=== PATIENT | female | born 1945 | race Caucasian/White ===

== ENCOUNTER → 2020-05-27 12:34 | Outpatient (CLI) | payer MEDICARE, BC, SELFPAY ==
--- NOTE | ~2020-05-27 | MM_ITS ---
EXAMINATION: MM screening lori BI w anette HISTORY: Screening mammogram, family history of breast cancer in her mother. TECHNIQUE: Craniocaudal and mediolateral oblique 3-D tomosynthesis images were obtained and synthetic 2-D images were generated. CAD analysis was submitted and interpreted. COMPARISON: 04/13/2019, 03/30/2019, 02/05/2018, 12/21/2016 BREAST PARENCHYMAL COMPOSITION: The breasts are almost entirely fatty. FINDINGS: There is no evidence of suspicious mass, calcification, or architectural distortion to sugg est malignancy in either breast. There has been no suspicious interval change. IMPRESSION: 1. No mammographic evidence of malignancy. 2. Recommend routine screening mammography in one year. BI-RADS Category 1: Negative Reviewed, dictated and finalized at location A. 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
== END ==
PROVIDERS: PCP Family Medicine Adolescent Medicine; Visit Provider Family Medicine Adolescent Medicine
DX: Z12.31 Encounter for screening mammogram for malignant neoplasm of breast (principal)
CPT/HCPCS: 77063; 77067

== ENCOUNTER → 2021-07-26 10:49 | Outpatient (CLI) | payer MEDICARE, BC, SELFPAY ==
--- NOTE | ~2021-07-26 | MM_ITS ---
EXAMINATION: MM screening lori BI w anette HISTORY: Screening TECHNIQUE: Craniocaudal and mediolateral oblique 3-D tomosynthesis images were obtained and synthetic 2-D images were generated. CAD analysis was submitted and interpreted. COMPARISON: Comparison to multiple prior studies sequentially, with oldest reviewed study dated 12/18. BREAST PARENCHYMAL COMPOSITION: There are scattered areas of fibroglandular density. FINDINGS: There is no evidence of suspicious mass, calcification, or architectural distortion to sugg est malignancy in either breast. There has been no suspicious interval change. IMPRESSION: 1. No mammographic evidence of malignancy. 2. Recommend routine screening mammography in one year. BI-RADS Category 1: Negative Reviewed, dictated and finalized at location A. 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
== END ==
PROVIDERS: PCP Family Medicine Adolescent Medicine; Visit Provider Family Medicine Adolescent Medicine
DX: Z12.31 Encounter for screening mammogram for malignant neoplasm of breast (principal)
CPT/HCPCS: 77063; 77067

== ENCOUNTER 2022-10-29 20:23 | Inpatient (IN) | payer MEDICARE, BC, SELFPAY ==
--- NOTE | ~2022-10-29 | CT_ITS ---
EXAMINATION: CT lumbar spine wo con DATE: 10/29/2022 22:04 INDICATION: fall . TECHNIQUE: Computed tomography (CT) of the lumbar spine was performed without intravenous contrast. A utomated exposure control and iterative reconstruction technique were employed. The dose-length produ ct was 1111.75 mGy-cm. COMPARISON: CT right lower extremity 03/09/2015. FINDINGS: Atherosclerotic vascular calcifications. Cholelithiasis. Bilateral adrenal adenomas. Right midpole cyst with a thin calcified septum. Diverticulosis. Heterogeneous cystic and solid mass in the left pelvis measuring at least 5.6 cm but incompletely included in the [id number]. Acetabular masha ent in the right acetabulum, not completely included in the [id number]. Right iliopsoas scarring. Right-sided stimulator pack, leads terminating in the deep left pelvis after passing through the left third sacral foramen. Decreased mineralization. 5 nonrib-bearing lumbar-type vertebral bodies. Pedicles intact. Normal vert ebral body alignment. Loss of the normal lordosis. Vertebral body heights preserved. Multilevel moder ate disc space narrowing and marginal osteophytosis with vacuum phenomenon at L1-2 through L4-5. Yamile re left neural foraminal narrowing at L4-5. Severe central canal narrowing at L3-4 and L4-5. Moderate multilevel facet sclerosis and hypertrophy. IMPRESSION: 1. No acute fracture or traumatic malalignment in the lumbar spine. 2. Severe central canal stenosis at L3-4 and L4-5. 3. Severe left foraminal narrowing at L4-5. 4. Severe multilevel lumbar degenerative disc disease. 5. Incompletely evaluated left pelvic mass, recommend pelvic ultrasound for further evaluation. Reviewed, dictated and finalized at location K. IMPRESSION: 1. No acute fracture or traumatic malalignment in the lumbar spine. 2. Severe central canal stenosis at L3-4 and L4-5. 3. Severe left foraminal narrowing at L4-5. 4. Severe multilevel lumbar degenerative disc disease. 5. Incompletely evaluated left pelvic mass, recommend pelvic ultrasound for fur ther evaluation.
--- NOTE | ~2022-10-29 | CT_ITS ---
EXAMINATION: CT brain wo con DATE: 10/29/2022 21:58 INDICATION: fall, thinners . TECHNIQUE: Computed tomography (CT) of the head was performed without intravenous contrast. The mA wa s adjusted according to patient size. Iterative reconstruction technique was employed. The dose-lengt h product was 605.33 mGy-cm. COMPARISON: None. FINDINGS: No acute intracranial hemorrhage or extra-axial fluid collection. No hydrocephalus, mass, or herniation. No acute ischemic infarct. Unremarkable dural venous sinus attenuation. No acute osseous abnormality. Trace left mastoid fluid, the remaining aerated spaces are clear. Mild atrophy and chronic white matter change. Atherosclerotic intracranial calcification. 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 Bilateral lens replacements . IMPRESSION: No acute intracranial process. Reviewed, dictated and finalized at location K.
--- NOTE | ~2022-10-29 | XR_ITS ---
EXAM: XR ankle RT min 3V DATE: 10/29/2022 21:52 HISTORY: fall . COMPARISON: None available. FINDINGS: Decreased mineralization. No acute fracture or dislocation. No lytic or blastic lesion. De generative change in the tibiotalar joint and the midfoot. Achilles and plantar enthesopathy. Ossific ation adjacent to the medial cortex of the distal tibia. Soft tissue swelling about the ankle. Vascul ar calcifications. IMPRESSION: No acute osseous finding in the right ankle. Periosteal/soft tissue ossification adjacent to the distal right tibia just proximal to the medial malleolus, likely chronic change and of doubtf ul clinical significance, unless accompanied by signs of infection. Reviewed, dictated and finalized at location K. IMPRESSION: No acute osseous finding in the right ankle. Periosteal/soft tissue ossification adjacent to the distal right tibia just proximal to the medial ma lleolus, likely chronic change and of doubtful clinical significance, unless ac companied by signs of infection.
--- NOTE | ~2022-10-29 | CT_ITS ---
EXAMINATION: CT abdomen pelvis w con DATE: 10/30/2022 02:39 INDICATION: Abdominal pain radiating to the back. TECHNIQUE: Computed tomography (CT) of the abdomen and pelvis was performed with 100 mL Omnipaque 350 intravenous contrast. Automated exposure control and iterative reconstruction technique were employe d. The dose-length product was 979.19 mGy-cm. COMPARISON: None. FINDINGS: The visualized portions of the lung bases demonstrate mild atelectasis. No pleural effusion . Cardiomegaly is noted. 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 There are coronary artery calcifications. No pericardial effusion. There are cysts i n the liver measuring up to 2.0 cm. There is a gallstone in the gallbladder, which is distended. Ther e is incomplete pancreas divisum. The spleen and right adrenal gland are normal. There is a 16 mm mas s in left adrenal gland measuring soft tissue attenuation, likely an adenoma in the absence of known malignancy. There is mild atrophy of the kidneys. There is a 3.5 cm cyst in right kidney. There is an umbilical hernia containing fat. There is a 6.0 x 3.7 cm multiloculated cystic mass in left adnexa. There is diverticulosis of the colon without evidence of diverticulitis. The appendix is normal. Ther e are no dilated loops of bowel. There is calcified atherosclerosis of the aorta and many of the othe r arteries. There are no pathologically enlarged lymph nodes. There is no free intraperitoneal fluid. There are bilateral total hip arthroplasties. There is an electrode in left S3 neural foramen. There is moderate lumbar spondylosis. IMPRESSION: 1. Cholelithiasis. Gallbladder distention may be secondary to fasting or acute cholecystitis. Correla te with physical exam. 2. 6.0 x 3.7 cm multiloculated cystic mass in the left adnexa, which may be a benign or malignant ova nurys mass. Pelvis ultrasound is recommended. Reviewed, dictated and finalized at location A. IMPRESSION: 1. Cholelithiasis. Gallbladder distention may be secondary to fasting or acute cholecystitis. Correlate with physical exam. 2. 6.0 x 3.7 cm multiloculated cystic mass in the left adnexa, which may be a b enign or malignant ovarian mass. Pelvis ultrasound is recommended.
--- NOTE | ~2022-10-29 | US_ITS ---
EXAMINATION: US pelvic complete DATE: 10/30/2022 17:29 INDICATION: Incompletely evaluated left pelvic mass, TECHNIQUE: Multiple transabdominal sonographic images of the pelvis were obtained. Patient declined t ransvaginal examination. COMPARISON: CT abdomen and pelvis 10/30/2022. FINDINGS: Uterus: Status post hysterectomy. Right Ovary: Not visualized. Left Ovary: 2.6 x 1.7 x 1.7 cm. Vascular flow is not obtained. There is no free fluid in the pelvis. IMPRESSION: Limited examination. The known left adnexal mass was not visualized. Right ovary not visualized. Flow not obtained in the left ovary although this may be secondary to technical factors. Reviewed, dictated and finalized at location K. IMPRESSION: Limited examination. The known left adnexal mass was not visualized. Right ovar y not visualized. Flow not obtained in the left ovary although this may be seco ndary to technical factors.
--- NOTE | ~2022-10-29 | XR_ITS ---
EXAM: XR hip BI 2V w AP pelvis DATE: 10/29/2022 21:52 HISTORY: fall . COMPARISON: 02/04/2013. FINDINGS: Right sided stimulator pack, leads terminating over the left sacrum. Bipolar right hip imp lant with proximal femoral cerclage wires and acetabular cement. Extrusion of cement within the pelvi c ring. Periarticular lucency along the right femoral stem at the bone/hardware and bone cement inter face. Heterotopic ossification projecting off the right greater trochanter. Uncomplicated appearing t otal hip arthroplasty, in good position. Vascular calcifications. Pelvic phleboliths. Lumbar degenera tive disc disease. IMPRESSION: No acute osseous finding in the pelvis or bilateral hips. Perihilar hardware lucency surr ounding the femoral component in the right revision arthroplasty may represent infection/loosening. R ecommend comparison to outside studies if available. Reviewed, dictated and finalized at location K. IMPRESSION: No acute osseous finding in the pelvis or bilateral hips. Perihilar hardware lucency surrounding the femoral component in the right revision arthr oplasty may represent infection/loosening. Recommend comparison to outside stud ies if available.
--- NOTE | ~2022-10-29 | XR_ITS ---
EXAM: XR_KNEE1-2VRT_CR, XR_KNEE1-2VLT_CR DATE: 10/29/2022 21:52 HISTORY: fall . COMPARISON: None available. FINDINGS: Decreased mineralization. Bilateral medial and lateral joint space narrowing, severe in th e lateral compartment of the left knee. Tricompartmental bilateral osteophytosis, severe in the patellofemoral compartment of the left knee. No fracture or dislocation. Small bilateral knee joint effusions. Atherosclerotic vascular calcificat ions. IMPRESSION: No acute osseous finding in the right or left knee. Reviewed, dictated and finalized at location K. IMPRESSION: No acute osseous finding in the right or left knee.
[2022-10-29 20:30] VITALS: RESP 16; O2SAT 95
[2022-10-29 20:35] VITALS: BP 121/59; PULSE 96; RESP 20; TEMP 37.6; O2SAT 96
[2022-10-29 20:46] VITALS: BP 144/123; PULSE 102; RESP 20; O2SAT 95
[2022-10-29 21:04] VITALS: PULSE 107
--- NOTE | 2022-10-29 21:18 | ED.FALL ---
HPI - Fall General Chief Complaint: Fall <Lang Dawson PA-C - Last Filed: 10/30/22 04:18> Stated Complaint: glf <Lang Dawson PA-C - Last Filed: 10/30/22 04:18> Time Seen by Provider: 10/29/22 20:42 <Lang Dawson PA-C - Last Filed: 10/30/22 04:18> Source: patient <Lang Dawson PA-C - Last Filed: 10/30/22 04:18> Mode of arrival: ambulatory <Lang Dawson PA-C - Last Filed: 10/30/22 04:18> Limitations: no limitations <Lang Dawson PA-C - Last Filed: 10/30/22 04:18> History of Present Illness HPI Narrative: This is a 76-year-old female with PMH of A-fib, CHF, CAD, type 2 diabetes, peripheral neuropathy who presents to the ED with chief complaint of a fall occurring this morning around 0830. She is here presenting with her daughter. Patient states that she had a ground-level fall in which she was trying to transition from her bed to her wheelchair. Reports neuropathy in her feet due to diabetes which is why she is in the wheelchair. She states that she stumbled while trying to turn around and fell down to the ground. Reports some left low back pain that is chronic but slightly worse after the fall. Denies any further site of pain, however unable to tell about lower extremity injuries due to the neuropathy. Denies LOC. Denies head injury. She is able to recall the entirety of the entirety of the events this morning. She does take warfarin. Denies fevers, chills, chest pain, shortness of breath, chest pain, lightheadedness, weakness. <Lang Dawson PA-C - Last Filed: 10/30/22 04:18> Related Data Home Medications: Home Medications Medication Instructions Recorded Confirmed aspirin 81 mg tablet,delayed 81 mg PO DAILY 09/27/21 10/30/22 release (Adult Low Dose Aspirin) vit C 250 mg-vit E 90 mg-zinc 40 1 tablet PO BID 09/27/21 10/30/22 mg-copper 1 fr-itbsxq-jqqdic capsule (PreserVision AREDS-2) warfarin 1 mg tablet 1 mg PO DAILY 09/27/21 10/03/22 duloxetine 30 mg capsule,delayed 60 mg PO BID 10/30/22 10/30/22 release furosemide 80 mg tablet 40 mg PO QAM 10/30/22 10/30/22 metformin 500 mg tablet,extended 500 mg PO BID 10/30/22 10/30/22 release 24 hr potassium chloride 20 mEq 20 meq PO DAILY 10/30/22 10/30/22 tablet,extended release <Lang Dawson PA-C - Last Filed: 10/30/22 04:18> Allergies/Adverse Reactions: Allergies Allergy/AdvReac Type Severity Reaction Status Date / Time prednisone Allergy Severe RASH Verified 10/29/22 21:49 <Lang Dawson PA-C - Last Filed: 10/30/22 04:18> Review of Systems Review of Systems: CONSTITUTIONAL: Denies fever, chills, or sweats. EYES: Denies visual changes, redness, or discharge. ENT: Denies rhinorrhea, congestion, sore throat, or otalgia. CARDIOVASCULAR: Denies chest pain, palpitations, or edema. RESPIRATORY: Denies cough or dyspnea. GASTROINTESTINAL: Denies abdominal pain, nausea, vomiting, or diarrhea. GENITOURINARY: Denies dysuria or hematuria. SKIN: Denies rash or itching. MUSCULOSKELETAL: See HPI NEUROLOGIC: See HPI PSYCHIATRIC: Denies anxiety or depression. <Lang Dawson PA-C - Last Filed: 10/30/22 04:18> [facility] Past Medical History Medical History: Medical History (Updated 10/30/22 @ 04:15 by Lang Dawson PA-C) Normal colonoscopy 2011 <Lang Dawson PA-C - Last Filed: 10/30/22 04:18> Surgical History Surgical History: Surgical History (Updated 09/26/21 @ 09:55 by Babak Kebede MD) History of hysterectomy History of tonsillectomy History of total bilateral knee replacement Right 2007, Left 2012 <Lang Dawson PA-C - Last Filed: 10/30/22 04:18> Family History Family History: Family History (Updated 09/26/21 @ 09:56 by Babak Kebede MD) Father Lung cancer Mother Emphysema of lung <Lang Dawson PA-C - Last Filed: 10/30/22 04:18> Social History Social History: Social History (Updated 09/27/21 @ 13:20 by Jose Magana
[2022-10-29 22:18] VITALS: PULSE 100; RESP 20; O2SAT 98
--- NOTE | 2022-10-29 23:10 | PC.NURSE ---
Report given to HOA Sanders.
--- NOTE | 2022-10-29 23:16 | PC.NURSE ---
Report given to HOA Sanders at this time.
[2022-10-29 23:46] LABS: Basophils Absolute Auto 0.1 K/mm3 (0.0-0.1); Basophils Percent Auto 0.5 % (0.2-1.2); Eosinophils Percent Auto 0.1 % (0-4.4); Hemoglobin 14.5 g/dL (12.0-15.0); Immature Granulocyte Absolute 0.14 K/mm3 (0.00-0.031); Immature Granulocyte Percent A 0.8 % (0-0.5); Lymphocytes Absolute Auto 1.34 K/mm3 (0.9-3.2); Lymphocytes Percent Auto 7.7 % (18.3-44.2); Mean Corpuscular HGB Conc 32.2 g/dl (32-36); Mean Corpuscular Hemoglobin 28.9 pg (26-34); Mean Corpuscular Volume 89.8 fl (80-100); Mean Platelet Volume 10.8 fl (7.4-10.4); Monocytes Absolute Auto 1.7 K/mm3 (0.1-0.6); Monocytes Percent Auto 9.8 % (2.6-8.5); Neutrophils Absolute Auto 14.1 K/mm3 (1.3-6.7); Neutrophils Percent Auto 81.1 % (45.5-73.1); Platelet Count Result 235 k/mm3 (150-375); Red Blood Count 5.01 M/mm3 (4.2-5.4); Red Cell Distribution Width 14.6 % (11.5-14.5); White Blood Count 17.4 K/mm3 (4.5-10.0)
[2022-10-29 23:58] LABS: INR 2.2; Prothrombin Time 23.4 Seconds (11.1-14.7)
[2022-10-29 23:59] LABS: Partial Thromboplastin Time 35.3 SECONDS (22.3-36.8)
[2022-10-30] VITALS (9 sets, daily range): BP systolic 102–168; BP diastolic 57–81; PULSE 88–107; RESP 15–20; TEMP 35.8–36.7; O2SAT 94–98; BMI 32.2; BMI 10.0
[2022-10-30 00:01] LABS: Alanine Aminotransferase 28 U/L (6-35); Albumin Level 4.6 g/dL (3.5-5.1); Alkaline Phosphatase 92 U/L (38-126); Anion Gap 11 mmol/L (8-16); Aspartate Amino Transferase 35 U/L (14-36); Blood Urea Nitrogen 26 mg/dL (7-17); Calcium 8.8 mg/dL (8.4-10.2); Carbon Dioxide 28 mmol/L (22-30); Chloride 92 mmol/L (98-107); Estimated CRCL calculation 36 ml/min; Estimated Glomerular Filt Rate 40; Glucose 139 mg/dL (65-110); Potassium 3.7 mmol/L (3.4-5.0); Sodium 131 mmol/L (137-145)
[2022-10-30 02:30] LABS: Appearance Urine Turbid (Clear); Bacteria Urine 2+ /hpf; Bilirubin Urine 2+ (Negative); Blood Urine 2+ (Negative); Color Urine Dark Yellow (Yellow); Glucose Urine UA Negative (Negative); Ketones Urine 1+ mg/dL (Negative); Leukocyte Esterase Ur 3+ LEU/UL (Negative); Need Manual Microscopic Reviewed; Nitrate Urine Negative (Negative); Protein Urine 3+ mg/dL (Negative); Specific Grav Ur 1.021 (1.001-1.035); Squamous Epithelial Cell Urine Occasional /hpf (Few); WBC Urine >100 /hpf; pH Urine 5.5 (5.0-9.0)
[2022-10-30 02:32] LABS: Add Urine Microscopic? YES
[2022-10-30] MEDS: SODIUM CHLORIDE 0.9% IV 1,000 ML 999 ML IV CONT (04:24)
--- NOTE | 2022-10-30 06:37 | PC.NURSE ---
warfarin dosing needs verified, all other medication verified with daughter Shay Day to bring in medication list
--- NOTE | 2022-10-30 06:37 | ADMGEN ---
This patient, Zeina Owen, was admitted to [facility] Room 306-01. Patient/family oriented to hospital policies and general routines including ID bracelet, bed and alarms, visiting hours, pain management, procedures, bathroom and other care routines, personal items, smoking policy, room service/diet, and visiting hours. Information on how to activate the Rapid Response Team has been discussed. Patient/Family are encouraged to report perceived risks to care and to ask questions if they do not understand what they are told or what they should do.
[2022-10-30] MEDS: DIGOXIN TAB 125 MCG TABLET PO (09:19)
[2022-10-30] MEDS: metFORMIN HCL XR 500 MG TAB.SR.24H PO ×2 (09:19→17:55)
[2022-10-30] MEDS: FUROSEMIDE 40 MG TABLET PO (09:19)
[2022-10-30] MEDS: ASPIRIN 81 MG ENTERIC TABLET PO (09:20)
[2022-10-30] MEDS: PRAVASTATIN SODIUM 20 MG TABLET 40 MG PO (09:20)
[2022-10-30] MEDS: DULoxetine HCL 60 MG CAPSULE.DR PO ×2 (09:20→17:55)
[2022-10-30] MEDS: FERROUS SULFATE 324 MG TABLET PO ×2 (09:20→17:55)
[2022-10-30] MEDS: OPTI-GEN TAB 1 TABLET PO ×2 (09:20→17:55)
[2022-10-30] MEDS: POTASSIUM CHLORIDE 20 MEQ TABLET.ER PO (09:20)
[2022-10-30 11:21] LABS: Glucose Point of Care 179 mg/dl (65-105)
[2022-10-30] MEDS: HYDROcodone/acetaminophen (*CRX) 5-325 MG TABLET 1 TAB PO (12:02)
--- NOTE | 2022-10-30 15:14 | PM.IMHP ---
H&P: HPI History of Present Illness Date/Time: 10/30/22 15:14 Chief Complaint: Fall Narrative: ED-HPI Narrative: ? ? ? This is a 76-year-old female with PMH of A-fib, CHF, CAD, type 2 diabetes, peripheral neuropathy who presents to the ED with chief complaint of a fall occurring this morning around 0830.? She is here presenting with her daughter.? Patient states that she had a ground-level fall in which she was trying to transition from her bed to her wheelchair.? Reports neuropathy in her feet due to diabetes which is why she is in the wheelchair.? She states that she stumbled while trying to turn around and fell down to the ground.? Reports some left low back pain that is chronic but slightly worse after the fall.? Denies any further site of pain, however unable to tell about lower extremity injuries due to the neuropathy.? Denies LOC.? Denies head injury.? She is able to recall the entirety of the entirety of the events this morning.? She does take warfarin.? Denies fevers, chills, chest pain, shortness of breath, chest pain, lightheadedness, weakness. Patient is 76-year-old female with history of dementia and currently confused unable to provide detailed review of symptoms or history patient daughter is present in the room states patient normally is able transfer herself from bed to wheelchair and apparently sees weak and her neuropathic pain may have aggravated and patient fell, patient urine is suspicious for UTI however with dementia unable to provide history of dysuria, we have started the patient ceftriaxone empiric will follow-up on urine, will have PT OT evaluate the patient, patient may benefit going to acute rehab. Patient is admitted as observation status Review of Systems Review of Systems: ROS unobtainable: Yes unobtainable due to mental status PMFSH Past Medical History Medical History (Updated 10/30/22 @ 15:31 by Paty Johnson MD) Normal colonoscopy 2011 Surgical History Surgical History (Updated 09/26/21 @ 09:55 by Babak Kebede MD) History of hysterectomy History of tonsillectomy History of total bilateral knee replacement Right 2007, Left 2012 Family History Family History (Updated 09/26/21 @ 09:56 by Babak Kebede MD) Father Lung cancer Mother Emphysema of lung Social History Social History (Updated 09/27/21 @ 13:20 by Jose Magana MA) Smoking status: Current every day smoker Tobacco type: cigarettes Alcohol intake: never Substance use: never Substance use type: does not use Lack of Transportation: No Lack of Food: Never True Current Housing: Decline to Answer Concerned About Future Housing: No Difficulty Paying Gas/Electric Bills: No Difficulty Paying for Meds: No Currently Unemployed: No Education: High School Diploma/GED Difficulty w/ Childcare or Family Care: No Living arrangements: alone Occupation/Education: retired Gender identity (if verbalized by the patient): Female Sexual Orientation (if Verbalized by the Patient): Straight or Heterosexual Spiritual care concerns: No Agree to blood products: Yes Meds Home Medications and Allergies Home Medications Medication Instructions Recorded Confirmed Type aspirin 81 mg tablet,delayed 81 mg PO DAILY 09/27/21 10/30/22 History release (Adult Low Dose Aspirin) vit C 250 mg-vit E 90 mg-zinc 40 1 tablet PO BID 09/27/21 10/30/22 History mg-copper 1 [id number]-izfmop-bsbgie capsule (PreserVision AREDS-2) warfarin 1 mg tablet 1 mg PO DAILY 09/27/21 10/03/22 History pravastatin 40 mg tablet 40 mg PO DAILY #90 tabs 12/20/21 10/30/22 Rx ferrous sulfate 325 mg (65 mg 325 mg PO BID #180 tabs 06/27/22 10/30/22 Rx iron) tablet (FeroSul) trazodone 50 mg tablet 50 mg PO QHS PRN sleep #90 tabs 06/27/22 10/30/22 Rx diltiazem HCl 240 mg 240 mg PO DAILY #90 caps 07/06/22 10/30/22 Rx capsule,extended release 24 hr digoxin 125 mcg (0.125 mg) tablet 125 mcg PO DAILY #90 tabs
[2022-10-30 16:55] LABS: Glucose Point of Care 149 mg/dl (65-105)
--- NOTE | 2022-10-30 17:06 | PM.CNOR ---
Assessment and Plan Assessment and plan (1) Status post total hip replacement, bilateral: Code(s): Z96.643 - Presence of artificial hip joint, bilateral Status: Acute (2) Severe sprain of right ankle: Code(s): S93.401A - Sprain of unspecified ligament of right ankle, initial encounter Status: Acute (3) Decreased ambulation status: Code(s): Z74.09 - Other reduced mobility Status: Acute Plan Status post right revision total hip arthroplasty for early post op infection over 10 years ago. She denies any problems in the hip since her revision surgery and no recent acute aggravation. There is radiographic evidence of possible chronic loosening at the cement mantle with lucent lines at the acetabulum and femoral components. This is a chronic finding, unlikely related to the recent fall. Chronic infection is possible, but unlikely given her lack of symptoms. She does complain of significant ankle pain secondary to a severe sprain. I recommend a soft compressive wrap, or brace for the ankle. I recommend she follow-up with her treating surgeon for monitoring of her hip arthroplasty. Thank you for the consultation. History of Present Illness HPI Consult date: 10/30/22 Chief complaint: UTI,Falls,Neuropathy Narrative: 76-year-old pleasant female with mild dementia complains of right ankle pain after a fall. She typically transfers only. Non ambulatory. She fell somewhat under wheelchair in complains of rolling the ankle. Complains of swelling. Denies hip or groin pain. Some back pain which is chronic and mildly worsened. History of bilateral total hip arthroplasty approximally 10 years ago, by Dr. Richards. The right hip was draining purulence in the early postoperative. She was treated with revision by revision specialist. She denies any other problems with the hip. Review of Systems Review of Systems: All systems reviewed & are unremarkable except as noted in HPI and below PMFSH Past Medical History Medical History (Updated 10/30/22 @ 17:15 by Melvin Rahman MD) Normal colonoscopy 2011 Surgical History Surgical History (Updated 10/30/22 @ 17:13 by Melvin Rahman MD) History of hysterectomy History of tonsillectomy Status post total hip replacement, bilateral right hip revision due to infection. Family History Family History Father Lung cancer Mother Emphysema of lung Social History Social History Smoking status: Current every day smoker Tobacco type: cigarettes Alcohol intake: never Substance use: never Substance use type: does not use Lack of Transportation: No Lack of Food: Never True Current Housing: Decline to Answer Concerned About Future Housing: No Difficulty Paying Gas/Electric Bills: No Difficulty Paying for Meds: No Currently Unemployed: No Education: High School Diploma/GED Difficulty w/ Childcare or Family Care: No Living arrangements: alone Occupation/Education: retired Gender identity (if verbalized by the patient): Female Sexual Orientation (if Verbalized by the Patient): Straight or Heterosexual Spiritual care concerns: No Agree to blood products: Yes Meds Home Medications and Allergies Home Medications Medication Instructions Recorded Confirmed Type aspirin 81 mg tablet,delayed 81 mg PO DAILY 09/27/21 10/30/22 History release (Adult Low Dose Aspirin) vit C 250 mg-vit E 90 mg-zinc 40 1 tablet PO BID 09/27/21 10/30/22 History mg-copper 1 pc-netyyq-ferrlp capsule (PreserVision AREDS-2) warfarin 1 mg tablet 1 mg PO DAILY 09/27/21 10/03/22 History pravastatin 40 mg tablet 40 mg PO DAILY #90 tabs 12/20/21 10/30/22 Rx ferrous sulfate 325 mg (65 mg 325 mg PO BID #180 tabs 06/27/22 10/30/22 Rx iron) tablet (FeroSul) trazodone 50 mg tablet 50 mg PO QHS PRN sleep #90 tabs
[2022-10-30] MEDS: WARFARIN (*PBKC) 3 MG TABLET PO (18:32)
[2022-10-30 22:08] LABS: Glucose Point of Care 179 mg/dl (65-105)
[2022-10-31 06:00] VITALS: BP 146/77; PULSE 100; RESP 16; TEMP 36.6; O2SAT 94
[2022-10-31 06:08] LABS: Hematocrit 39.4 % (37.0-47.0); Hemoglobin 12.6 g/dL (12.0-15.0); Mean Corpuscular Hemoglobin 28.8 pg (26-34); Mean Corpuscular Volume 90.2 fl (80-100); Mean Platelet Volume 10.7 fl (7.4-10.4); Platelet Count Result 177 k/mm3 (150-375); Red Blood Count 4.37 M/mm3 (4.2-5.4); Red Cell Distribution Width 14.5 % (11.5-14.5); White Blood Count 12.5 K/mm3 (4.5-10.0)
[2022-10-31 06:17] LABS: INR 2.2; Prothrombin Time 23.7 Seconds (11.1-14.7)
[2022-10-31 06:21] LABS: Anion Gap 6 mmol/L (8-16); Blood Urea Nitrogen 25 mg/dL (7-17); Calcium 8.8 mg/dL (8.4-10.2); Carbon Dioxide 29 mmol/L (22-30); Chloride 99 mmol/L (98-107); Estimated CRCL calculation 46 ml/min; Estimated Glomerular Filt Rate 54; Glucose 138 mg/dL (65-110); Magnesium 1.6 mg/dL (1.6-2.3); Potassium 3.6 mmol/L (3.4-5.0); Sodium 134 mmol/L (137-145)
[2022-10-31 07:51] LABS: Glucose Point of Care 158 mg/dl (65-105)
[2022-10-31 09:08] VITALS: PULSE 60
[2022-10-31] MEDS: OPTI-GEN TAB 1 TABLET PO ×2 (09:08→17:09)
[2022-10-31] MEDS: DULoxetine HCL 60 MG CAPSULE.DR PO ×2 (09:08→17:08)
[2022-10-31] MEDS: PRAVASTATIN SODIUM 20 MG TABLET 40 MG PO (09:08)
[2022-10-31] MEDS: FUROSEMIDE 40 MG TABLET PO (09:08)
[2022-10-31] MEDS: POTASSIUM CHLORIDE 20 MEQ TABLET.ER PO (09:08)
[2022-10-31] MEDS: metFORMIN HCL XR 500 MG TAB.SR.24H PO ×2 (09:08→17:09)
[2022-10-31] MEDS: ASPIRIN 81 MG ENTERIC TABLET PO (09:08)
[2022-10-31] MEDS: DIGOXIN TAB 125 MCG TABLET PO (09:08)
[2022-10-31] MEDS: FERROUS SULFATE 324 MG TABLET PO ×2 (09:08→17:09)
[2022-10-31 12:24] LABS: Glucose Point of Care 159 mg/dl (65-105)
[2022-10-31] MEDS: POTASSIUM CHLORIDE 20 MEQ TABLET 40 MEQ PO (12:53)
[2022-10-31 14:00] VITALS: BP 132/57; PULSE 82; RESP 20; TEMP 36; O2SAT 94
--- NOTE | 2022-10-31 14:24 | WPDPN ---
Progress Note: A&P Assessment and Plan (1) Fall: Code(s): W19.XXXA - Unspecified fall, initial encounter Status: Acute Assessment and Plan: ED-HPI Narrative: ? ? ? This is a 76-year-old female with PMH of A-fib, CHF, CAD, type 2 diabetes, peripheral neuropathy who presents to the ED with chief complaint of a fall occurring this morning around 0830.? She is here presenting with her daughter.? Patient states that she had a ground-level fall in which she was trying to transition from her bed to her wheelchair.? Reports neuropathy in her feet due to diabetes which is why she is in the wheelchair.? She states that she stumbled while trying to turn around and fell down to the ground.? Reports some left low back pain that is chronic but slightly worse after the fall.? Denies any further site of pain, however unable to tell about lower extremity injuries due to the neuropathy.? Denies LOC.? Denies head injury.? She is able to recall the entirety of the entirety of the events this morning.? She does take warfarin.? Denies fevers, chills, chest pain, shortness of breath, chest pain, lightheadedness, weakness. 10/31/2022 interval history: Patient is 76-year-old female with history of dementia and currently confused unable to provide detailed review of symptoms or history patient daughter is present in the room states patient normally is able transfer herself from bed to wheelchair and apparently she too weak and her neuropathic pain may have aggravated and patient fell, patient urine is suspicious for UTI however with dementia unable to provide history of dysuria, we have started the patient ceftriaxone empiric will follow-up on urine, upon arrival patient had CT scan of the hip, suspicious for for infection patient was seen by orthopedic surgeon and suggest most likely chronic and patient need to follow up with his orthopedic surgeon, patient also found to have pelvic mass and I discussed with the patient daughter patient to follow-up with her athletics director, and patient need to will have PT OT evaluate the patient, patient may benefit going to acute rehab. (2) Acute UTI: Code(s): N39.0 - Urinary tract infection, site not specified Status: Acute Assessment and Plan: Patient urine is suspicious for UTI patient is simply Massimo lis started on ceftriaxone will follow-up on the culture and further recommendation to follow (3) Peripheral neuropathy: Code(s): G62.9 - Polyneuropathy, unspecified Status: Acute Assessment and Plan: Patient with chronic peripheral neuropathy patient will benefit and physical therapy in acute rehab (4) Hypertensive heart disease with heart failure: Code(s): I11.0 - Hypertensive heart disease with heart failure Status: Acute (5) Occlusion and stenosis of bilateral carotid arteries: Code(s): I65.23 - Occlusion and stenosis of bilateral carotid arteries Status: Acute Assessment and Plan: patient is being treated with warfarin (6) Pelvic mass in female: Code(s): R19.00 - Intra-abdominal and pelvic swelling, mass and lump, unspecified site Status: Acute Assessment and Plan: incidental finding, will do pelvic US and furthre recommnedation to follow. (7) Hip pain with osteonecrosis: Code(s): M87.9 - Osteonecrosis, unspecified Status: Acute Assessment and Plan: abnormal hip joint,will consult orthopedic for further recommendations. Subjective Date/time seen: 10/31/22 14:24 ED-HPI Narrative: ? ? ? This is a 76-year-old female with PMH of A-fib, CHF, CAD, type 2 diabetes, peripheral neuropathy who presents to the ED with chief complaint of a fall occurring this morning around 0830.? She is here presenting with her daughter.? Patient states that she had a ground-level fall in which she was trying to transition from her bed to her wheelchair.? Reports neuropathy in her feet due to diabetes which is why she is in the [facility]
[2022-10-31 16:55] LABS: Glucose Point of Care 177 mg/dl (65-105)
[2022-10-31] MEDS: WARFARIN (*PBKC) 3 MG TABLET PO (17:09)
[2022-10-31 20:00] VITALS: PULSE 96; RESP 18; O2SAT 93
[2022-10-31 22:00] VITALS: BP 132/80; PULSE 96; RESP 18; TEMP 36; O2SAT 93
[2022-10-31 22:57] LABS: Glucose Point of Care 177 mg/dl (65-105)
[2022-11-01 06:00] VITALS: BP 175/68; PULSE 91; RESP 18; TEMP 36; O2SAT 91
[2022-11-01 06:36] LABS: Hematocrit 39.4 % (37.0-47.0); Hemoglobin 12.3 g/dL (12.0-15.0); Mean Corpuscular HGB Conc 31.2 g/dl (32-36); Mean Corpuscular Hemoglobin 28.4 pg (26-34); Mean Platelet Volume 11.2 fl (7.4-10.4); Platelet Count Result 176 k/mm3 (150-375); Red Blood Count 4.33 M/mm3 (4.2-5.4); Red Cell Distribution Width 14.4 % (11.5-14.5); White Blood Count 10.7 K/mm3 (4.5-10.0)
[2022-11-01 06:42] LABS: Prothrombin Time 21.6 Seconds (11.1-14.7)
[2022-11-01 06:54] LABS: Anion Gap 7 mmol/L (8-16); Blood Urea Nitrogen 20 mg/dL (7-17); Calcium 8.6 mg/dL (8.4-10.2); Carbon Dioxide 28 mmol/L (22-30); Chloride 100 mmol/L (98-107); Estimated CRCL calculation 51 ml/min; Estimated Glomerular Filt Rate > 60; Glucose 133 mg/dL (65-110); Magnesium 1.7 mg/dL (1.6-2.3); Potassium 3.6 mmol/L (3.4-5.0); Sodium 135 mmol/L (137-145)
[2022-11-01 07:39] LABS: Glucose Point of Care 138 mg/dl (65-105)
[2022-11-01] MEDS: POTASSIUM CHLORIDE 20 MEQ TABLET.ER PO (08:22)
[2022-11-01] MEDS: DULoxetine HCL 60 MG CAPSULE.DR PO (08:22)
[2022-11-01] MEDS: ASPIRIN 81 MG ENTERIC TABLET PO (08:22)
[2022-11-01] MEDS: FUROSEMIDE 40 MG TABLET PO (08:22)
[2022-11-01] MEDS: OPTI-GEN TAB 1 TABLET PO (08:22)
[2022-11-01 08:23] VITALS: PULSE 91
[2022-11-01] MEDS: FERROUS SULFATE 324 MG TABLET PO (08:23)
[2022-11-01] MEDS: DIGOXIN TAB 125 MCG TABLET PO (08:23)
[2022-11-01] MEDS: MAGNESIUM OXIDE 400 MG TABLET PO (08:24)
[2022-11-01] MEDS: PRAVASTATIN SODIUM 20 MG TABLET 40 MG PO (08:24)
[2022-11-01] MEDS: metFORMIN HCL XR 500 MG TAB.SR.24H PO (08:24)
--- NOTE | 2022-11-01 10:19 | PM.DS ---
DS: Admitting Diagnosis Discharge Date 11/01/2022 Admitting Diagnosis Fall DS: Discharge Diagnosis Discharge Diagnosis (1) Fall: Code(s): W19.XXXA - Unspecified fall, initial encounter Status: Acute Assessment and Plan: ED-[facility] Narrative: ? ? ? This is a 76-year-old female with PMH of A-fib, CHF, CAD, type 2 diabetes, peripheral neuropathy who presents to the ED with chief complaint of a fall occurring this morning around 0830.? She is here presenting with her daughter.? Patient states that she had a ground-level fall in which she was trying to transition from her bed to her wheelchair.? Reports neuropathy in her feet due to diabetes which is why she is in the wheelchair.? She states that she stumbled while trying to turn around and fell down to the ground.? Reports some left low back pain that is chronic but slightly worse after the fall.? Denies any further site of pain, however unable to tell about lower extremity injuries due to the neuropathy.? Denies LOC.? Denies head injury.? She is able to recall the entirety of the entirety of the events this morning.? She does take warfarin.? Denies fevers, chills, chest pain, shortness of breath, chest pain, lightheadedness, weakness. 10/31/2022 interval history: Patient is 76-year-old female with history of dementia and currently confused unable to provide detailed review of symptoms or history patient daughter is present in the room states patient normally is able transfer herself from bed to wheelchair and apparently she too weak and her neuropathic pain may have aggravated and patient fell, patient urine is suspicious for UTI however with dementia unable to provide history of dysuria, we have started the patient ceftriaxone empiric will follow-up on urine, upon arrival patient had CT scan of the hip, suspicious for for infection patient was seen by orthopedic surgeon and suggest most likely chronic and patient need to follow up with his orthopedic surgeon, patient also found to have pelvic mass and I discussed with the patient daughter patient to follow-up with her balance recesser, and patient need to will have PT OT evaluate the patient, patient may benefit going to acute rehab. (2) Acute UTI: Code(s): N39.0 - Urinary tract infection, site not specified Status: Acute Assessment and Plan: Patient urine is suspicious for UTI patient is simply Massimo lis started on ceftriaxone will follow-up on the culture and further recommendation to follow (3) Peripheral neuropathy: Code(s): G62.9 - Polyneuropathy, unspecified Status: Acute Assessment and Plan: Patient with chronic peripheral neuropathy patient will benefit and physical therapy in acute rehab (4) Hypertensive heart disease with heart failure: Code(s): I11.0 - Hypertensive heart disease with heart failure Status: Acute (5) Occlusion and stenosis of bilateral carotid arteries: Code(s): I65.23 - Occlusion and stenosis of bilateral carotid arteries Status: Acute Assessment and Plan: patient is being treated with warfarin (6) Pelvic mass in female: Code(s): R19.00 - Intra-abdominal and pelvic swelling, mass and lump, unspecified site Status: Acute Assessment and Plan: incidental finding, will do pelvic US and furthre recommnedation to follow. (7) Hip pain with osteonecrosis: Code(s): M87.9 - Osteonecrosis, unspecified Status: Acute Assessment and Plan: abnormal hip joint,will consult orthopedic for further recommendations. DS: Summary Hospital Course Reason for hospitalization: ED-HPI Narrative: ? ? ? This is a 76-year-old female with PMH of A-fib, CHF, CAD, type 2 diabetes, peripheral neuropathy who presents to the ED with chief complaint of a fall occurring this morning around 0830.? She is here presenting with her daughter.? Patient states that she had a ground-level fall in which she was trying to transition from her bed to
[2022-11-01 11:56] LABS: Glucose Point of Care 186 mg/dl (65-105)
== END 2022-11-01 14:20 | DRG 690 ==
LOC: ANHED 10-30 04:24 → ANH3MEDSUR 10-30 05:24
PROVIDERS: Admitting Provider Internal Medicine; Emergency Provider Physician Assistant; PCP Family Medicine Adolescent Medicine; Visit Provider Family Medicine
DX: N39.0 Urinary tract infection, site not specified (principal); M87.9 Osteonecrosis, unspecified; S93.401A Sprain of unspecified ligament of right ankle, initial encounter; W19.XXXA Unspecified fall, initial encounter; E11.40 Type 2 diabetes mellitus with diabetic neuropathy, unspecified; F17.210 Nicotine dependence, cigarettes, uncomplicated; G89.29 Other chronic pain; I48.91 Unspecified atrial fibrillation; I11.0 Hypertensive heart disease with heart failure; I50.9 Heart failure, unspecified; I65.23 Occlusion and stenosis of bilateral carotid arteries; I25.10 Atherosclerotic heart disease of native coronary artery without angina pectoris; M54.9 Dorsalgia, unspecified; R19.00 Intra-abdominal and pelvic swelling, mass and lump, unspecified site; Z79.01 Long term (current) use of anticoagulants; F03.90 Unspecified dementia, unspecified severity, without behavioral disturbance, psychotic disturbance, mood disturbance, and anxiety; Z79.82 Long term (current) use of aspirin; Z90.710 Acquired absence of both cervix and uterus; Z96.653 Presence of artificial knee joint, bilateral; Z79.84 Long term (current) use of oral hypoglycemic drugs
CPT/HCPCS: 36415; 70450; 72131; 73521; 73560; 73610; 74177; 76856; 80048; 80053; 81001; 82948; 83735; 85025; 85027; 85610; 85730; 87086; 96365; 97162; 97165; 97530; 97535; 99285; A9270; J0696; J7030; Q9967

== ENCOUNTER 2022-12-20 16:51 | Outpatient (NON) | payer MEDICARE, BC, SELFPAY ==
[2022-12-20 17:24] LABS: Hematocrit 40.2 % (37.0-47.0); Hemoglobin 12.2 g/dL (12.0-15.0); Mean Corpuscular HGB Conc 30.3 g/dl (32-36); Mean Corpuscular Hemoglobin 29.2 pg (26-34); Mean Corpuscular Volume 96.2 fl (80-100); Platelet Count Result 252 k/mm3 (150-375); Red Blood Count 4.18 M/mm3 (4.2-5.4); Red Cell Distribution Width 16.4 % (11.5-14.5); White Blood Count 7.8 K/mm3 (4.5-10.0)
[2022-12-21 02:35] LABS: Hemoglobin A1C 5.8 % (<5.7)
== END 2022-12-20 16:52 | disposition home or self-care (01) ==
LOC: HOME HLTH 17:02
PROVIDERS: PCP Family Medicine Adolescent Medicine; Visit Provider Family Medicine Adolescent Medicine
DX: E11.42 Type 2 diabetes mellitus with diabetic polyneuropathy (principal); R53.1 Weakness
CPT/HCPCS: 83036; 85027

== ENCOUNTER 2023-01-19 13:06 | Inpatient (IN) | payer MEDICARE, BC, SELFPAY ==
[2023-01-19] VITALS (17 sets, daily range): BP systolic 105–154; BP diastolic 51–128; PULSE 69–85; RESP 18–22; TEMP 36.6; O2SAT 88–94; BMI 35.7
--- NOTE | ~2023-01-19 | US_ITS ---
EXAMINATION: US venous doppler [facility] DATE: 01/23/2023 11:33 INDICATION: Lower limb swelling. TECHNIQUE: Grayscale ultrasound images without and with compression and Doppler ultrasound images of the bilateral lower extremity veins were obtained. COMPARISON: Ultrasound 12/18/2013 FINDINGS: The visualized portions of right common femoral vein, profunda (deep) femoral vein, femoral vein, pop liteal vein, peroneal veins, posterior tibial veins, and greater saphenous vein outflow are patent. The visualized portions of left common femoral vein, profunda femoral vein, femoral vein, popliteal v ein, peroneal veins, posterior tibial veins, and greater saphenous vein outflow are patent. There is a small left-sided Brice's cyst. IMPRESSION: 1. No deep venous thrombosis. 2. Small left-sided Brice's cyst. Reviewed, dictated and finalized at location A.
--- NOTE | ~2023-01-19 | XR_ITS ---
XR hip RT 2V w AP pelvis DATE: 01/20/2023 11:58 INDICATION: Right thigh hematoma TECHNIQUE: AP pelvis. AP and lateral views of right hip COMPARISON: None FINDINGS: Diffuse osteopenia. Multilevel degenerative disc disease of lumbar spine. The pubic symphysis and sacral iliac joints are intact. No pelvic fracture or bone destruction is lauryn dent. Bilateral hip replacements. Generator device is noted on the right, with sacral neurotransmitter lead. IMPRESSION: Osteopenia Bilateral hip replacement Multilevel degenerative disc disease of the lumbar spine No recent right hip fracture or dislocation is detected Reviewed, dictated and finalized at location A.
--- NOTE | ~2023-01-19 | XR_ITS ---
EXAMINATION: XR femur RT min 2V DATE: 01/21/2023 09:47 INDICATION: Right thigh hematoma. TECHNIQUE: 2 views of right femur on 4 radiographs were obtained. COMPARISON: Pelvis and hip radiographs 10/29/2022, 03/01/2015 FINDINGS: There is a total right hip arthroplasty in near-anatomic alignment. Again seen are lucencie s around the distal femoral component and acetabular cup, consistent with loosening. Acetabular protr usio is noted. There is moderate right knee osteoarthritis. No knee joint effusion. IMPRESSION: 1. Total right hip arthroplasty with chronic lucencies around the acetabular cup and distal femoral c omponent, consistent with loosening. 2. Moderate right hip osteoarthritis. Reviewed, dictated and finalized at location A. IMPRESSION: 1. Total right hip arthroplasty with chronic lucencies around the acetabular cu p and distal femoral component, consistent with loosening. 2. Moderate right hip osteoarthritis.
--- NOTE | ~2023-01-19 | XR_ITS ---
XR knee RT 3V DATE: 01/20/2023 11:59 INDICATION: Anterolateral minor bruising of the right knee TECHNIQUE: 3 views including crosstable lateral COMPARISON: None FINDINGS: Diffuse osteopenia. Superior pole patellar enthesopathy at the quadriceps tendon insertion. There is tricompartment osteo arthritis, mild at the medial compartment, mild to moderate at the lateral and patellofemoral compart ments. No fracture or dislocation, periosteal reaction or bone destruction, radiopaque intra-articular loose body or chondrocalcinosis of the right knee is evident. The stem of an intramedullary fixation devices noted in the femoral shaft. Prominent calcification of the femoral, popliteal and particularly trifurcation arteries. IMPRESSION: Osteopenia Tricompartment osteoarthritis No fracture or dislocation of the knee or knee joint effusion Reviewed, dictated and finalized at location A.
--- NOTE | ~2023-01-19 | XR_ITS ---
EXAMINATION: XR chest 1V portable Exam Date/Time: 01/22/2023 14:30 CDT HISTORY: AMS Comparison: 07/04/2017. RESULT: Lines, tubes, and devices: None. Lungs and pleura: Emphysematous and senescent changes. Diffuse reticulonodular opacities, not signif icantly changed, given interval differences in technique. Cardiomediastinal silhouette: Stable. Other: No acute osseous or upper abdominal finding. IMPRESSION: Pulmonary opacities may represent chronic bronchiolitis, as can be seen with atypical infection, asth ma, aspiration, and small airways disease. Reviewed, dictated and finalized at location K. IMPRESSION: Pulmonary opacities may represent chronic bronchiolitis, as can be seen with at ypical infection, asthma, aspiration, and small airways disease.
--- NOTE | ~2023-01-19 | XR_ITS ---
XR humerus RT DATE: 01/20/2023 11:58 INDICATION: Chronic shoulder pain. No injury. TECHNIQUE: AP and lateral views COMPARISON: None FINDINGS: Severe chronic right rotator cuff atrophy with the humeral head abutting including chronic impressions upon the undersurface of the lateral aspect of the clavicle and the acromion process of t he scapula. There is severe osteoarthritic change at the right glenohumeral joint. No fracture, dislocation, periosteal reaction or bone destruction of the right humerus is evident. IV is noted at the antecubital fossa. IMPRESSION: Osteopenia Severe chronic right rotator cuff atrophy Severe osteoarthritic change at the right glenohumeral joint Reviewed, dictated and finalized at location A.
--- NOTE | ~2023-01-19 | CT_ITS ---
EXAMINATION: CT brain wo con DATE: 01/20/2023 11:43 INDICATION: Stroke. TECHNIQUE: Computed tomography (CT) of the head was performed without intravenous contrast. The mA wa s adjusted according to patient size. Iterative reconstruction technique was employed. The dose-lengt h product was 605.33 mGy-cm. COMPARISON: Head CT 10/29/2022 FINDINGS: There are scattered areas of low attenuation in the cerebral white matter. There is an old lacunar infarct in the left basal ganglia. There is no intracranial hemorrhage, acute infarction, or abnormal intracranial mass lesion. The ventricles are normal in size. There are likely changes of ocu lar lens replacement surgeries. The paranasal sinuses are clear. The mastoid air cells are normal. IMPRESSION: 1. Old lacunar infarct in the left basal ganglia. 2. Stable mild nonspecific cerebral white matter disease, which likely represents chronic small vesse l ischemic disease. Reviewed, dictated and finalized at location E. IMPRESSION: 1. Old lacunar infarct in the left basal ganglia. 2. Stable mild nonspecific cerebral white matter disease, which likely represen ts chronic small vessel ischemic disease.
[2023-01-19] MEDS: HYDROcodone/acetaminophen (*CRX) 5-325 MG TABLET 1 TAB PO (13:45)
[2023-01-19 13:56] LABS: Basophils Absolute Auto 0.1 K/mm3 (0.0-0.1); Basophils Percent Auto 0.9 % (0.2-1.2); Eosinophils Absolute Auto 0.1 K/mm3 (0-0.3); Eosinophils Percent Auto 0.6 % (0-4.4); Hematocrit 30.5 % (37.0-47.0); Hemoglobin 9.1 g/dL (12.0-15.0); Immature Granulocyte Absolute 0.07 K/mm3 (0.00-0.031); Immature Granulocyte Percent A 0.7 % (0-0.5); Lymphocytes Percent Auto 6.9 % (18.3-44.2); Mean Corpuscular HGB Conc 29.8 g/dl (32-36); Mean Corpuscular Hemoglobin 29.2 pg (26-34); Mean Corpuscular Volume 97.8 fl (80-100); Mean Platelet Volume 10.3 fl (7.4-10.4); Monocytes Absolute Auto 0.9 K/mm3 (0.1-0.6); Monocytes Percent Auto 8.5 % (2.6-8.5); Neutrophils Absolute Auto 8.4 K/mm3 (1.3-6.7); Neutrophils Percent Auto 82.4 % (45.5-73.1); Platelet Count Result 246 k/mm3 (150-375); Red Blood Count 3.12 M/mm3 (4.2-5.4); Red Cell Distribution Width 17.1 % (11.5-14.5); White Blood Count 10.2 K/mm3 (4.5-10.0)
[2023-01-19 14:08] LABS: INR 3.4; Prothrombin Time 37.1 Seconds (11.1-14.7)
[2023-01-19 14:09] LABS: Partial Thromboplastin Time 55.1 SECONDS (22.3-36.8)
[2023-01-19 14:13] LABS: Hypochromasia 1+ (NORMAL); Platelet Estimate Adequate (Adequate); Schistocytes None Seen (NORMAL)
[2023-01-19 14:19] LABS: Alanine Aminotransferase 15 U/L (6-35); Albumin Level 4.1 g/dL (3.5-5.1); Alkaline Phosphatase 96 U/L (38-126); Anion Gap 8 mmol/L (8-16); Aspartate Amino Transferase 18 U/L (14-36); Bilirubin,Total 0.6 mg/dL (0.2-1.3); Blood Urea Nitrogen 15 mg/dL (7-17); Calcium 8.5 mg/dL (8.4-10.2); Carbon Dioxide 30 mmol/L (22-30); Chloride 101 mmol/L (98-107); Estimated CRCL calculation 59 ml/min; Estimated Glomerular Filt Rate > 60; Glucose 123 mg/dL (65-110); Potassium 4.2 mmol/L (3.4-5.0); Sodium 139 mmol/L (137-145)
--- NOTE | 2023-01-19 15:00 | ED.LOWEXIN ---
HPI - Extremity Injury (Lower) General Chief Complaint: Extremity Injury, Lower Stated Complaint: leg pain Time Seen by Provider: 01/19/23 13:08 History of Present Illness HPI Narrative: Patient is a 77-year-old female who presents ER with leg weakness/buckling. She reports that she was at [facility] felt unsure about standing up to use restroom. She is being assisted by family when her knees buckled. She did not fall or strike her head. She has pain in her right thigh that has been ongoing over the last week. Associated with a lump and a bruise to the area. She denies any known trauma. She reports she has not been ambulatory since 2011 when she had MRSA sepsis and developed debility. She reports she was also recently hospitalized here 2 months ago. At that time she had a UTI. She then went to a rehab center. She feels like she has become more weak since her UTI infection and rehab stent. Patient uses a wheelchair and only assist in transferring. Patient chronically anticoagulated on treatment) unsure of last INR. No dark black stools. Related Data Home Medications Medication Instructions Recorded Confirmed aspirin 81 mg tablet,delayed 81 mg PO DAILY 09/27/21 01/19/23 release (Adult Low Dose Aspirin) metoprolol succinate 50 mg 50 mg PO QAM 01/02/23 01/19/23 tablet,extended release 24 hr warfarin 1 mg tablet 5 mg PO DAILY 01/02/23 01/19/23 digoxin 125 mcg (0.125 mg) tablet 125 mcg PO QAM 01/19/23 01/19/23 duloxetine 60 mg capsule,delayed 60 mg PO QAM 01/19/23 01/19/23 release (Cymbalta) pravastatin 40 mg tablet 40 mg PO QAM 01/19/23 01/19/23 vitamins A,C,Z-xrqg-whyval 2,148 2 tablet PO QAM 01/19/23 01/19/23 mcg-113 mg-45 mg-17.4 mg tablet Allergies Allergy/AdvReac Type Severity Reaction Status Date / Time prednisone Allergy Severe RASH Verified 01/19/23 13:12 Review of Systems Review of Systems: All systems reviewed & are unremarkable except as noted in HPI and below Constitutional: Constitutional: Denies chills, Reports fatigue and Denies fever(s) Cardiovascular: Cardiovascular: Denies chest pain, Denies rapid heart rate and Denies radiating jaw, neck or arm pain Musculoskeletal: Musculoskeletal: Denies arthralgias and Denies joint swelling Comments: Thigh pain right side Neurologic: Denies focal weakness and Denies numbness Hematologic/Lymphatic: Hematologic/Lymphatic: Denies easy bleeding and Reports easy bruising [facility] Past Medical History Medical History (Updated 01/19/23 @ 19:24 by Loco Gamboa MD) Atherosclerotic heart disease of [place] coronary artery without angina pectoris Chronic atrial fibrillation, unspecified Chronic obstructive pulmonary disease, unspecified Chronic systolic (congestive) heart failure Generalized anxiety disorder Hypertension Hypertensive heart disease with heart failure Major depressive disorder, recurrent, mild Normal colonoscopy 2011 Occlusion and stenosis of bilateral carotid arteries Pure hypercholesterolemia, unspecified Surgical History Surgical History History of hysterectomy History of tonsillectomy Status post total hip replacement, bilateral right hip revision due to infection. Family History Family History Father Lung cancer Mother Emphysema of lung Social History Social History Smoking packs per day: 1 Smoking cigarettes per day: 20.0 Years smoked: 64 Smoking pack-years: 64.00 Smoking status: Current every day smoker Tobacco type: cigarettes Alcohol intake: never Substance use: never Substance use type: does not use Lack of Transportation: No Lack of Food: Never True Current Housing: Decline to Answer Concerned About Future Housing: No Difficulty Paying Gas/Electric Bills: No Difficulty Paying for Meds: No Currently Une
[2023-01-19] MEDS: PANTOPRAZOLE SODIUM IV 40 MG VIAL IV PUSH (16:22)
[2023-01-19 17:05] LABS: Hematocrit 28.6 % (37.0-47.0); Hemoglobin 8.5 g/dL (12.0-15.0)
--- NOTE | 2023-01-19 17:06 | PM.IMHP ---
H&P: HPI History of Present Illness Date/Time: 01/19/23 16:30 Chief Complaint: Fall. Narrative: This is a very pleasant 77-year-old female smoker with chronic atrial fibrillation on long-term anticoagulation, congestive heart failure, hypertension, peripheral arterial disease, chronic obstructive pulmonary disease, type 2 diabetes mellitus with peripheral neuropathy, and other comorbidities who presented to the emergency department via EMS from home for evaluation after a fall. The patient provides the following history. She lives in her own home and her daughter and son-in-law do come over and help her out frequently. She is in a wheelchair and has been able to stand and pivot to transfer to the toilet and to bed up until recently. She has become increasingly weak and feels unsteady when up so she tries to wait until her family comes over to use the restroom. Not long prior to arrival her son-in-law was assisting her to the toilet when ?my knees buckled? and she slid to the ground onto her buttocks. There was no head trauma or loss of consciousness. Family members called 911 and on arrival to ED her vital signs were stable. On labs today she was found to have a hemoglobin of 9.1 which is 3 g lower than what she was last month. Her INR was 3.4. On exam she was noted to have a bruise and hematoma on the right lateral thigh which she states has been present for approximately 1 week though she does not recall how it happened; she denies fall and injury. Her stool was Hemoccult positive on exam. She is being admitted in this setting for further workup. At the time my evaluation she has no current complaints aside from the fact that she does not want to stay in the hospital and wishes to go home. She denies fever, chills, sweats, cold and flu symptoms, chest pain, shortness a breath, nausea, vomiting, diarrhea, dysuria, hematemesis, and obvious melena or hematochezia. Review of Systems Review of Systems: Twelve systems were reviewed. She feels increasingly weak since her hospitalization October as per HPI. Over the last 1 month she has felt that her right leg has become increasingly more weak ?almost like it is . 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 She denies other focal symptoms. No urinary retention or bowel incontinence. Denies saddle anesthesia. She does not exert herself much and gets short of breath easily, for instance moving herself around in bed. Except as documented, all other systems were reviewed and are negative. [facility] Past Medical History Medical History (Updated 01/20/23 @ 15:03 by Maribel Buckley PA-C) Atherosclerotic heart disease of [place] coronary artery without angina pectoris Chronic atrial fibrillation, unspecified Chronic obstructive pulmonary disease, unspecified Chronic systolic (congestive) heart failure Generalized anxiety disorder Hypertension Hypertensive heart disease with heart failure Major depressive disorder, recurrent, mild Normal colonoscopy 2011 Occlusion and stenosis of bilateral carotid arteries Pure hypercholesterolemia, unspecified Tobacco dependence Surgical History Surgical History History of hysterectomy History of tonsillectomy Status post total hip replacement, bilateral right hip revision due to infection. Family History Family History Father Lung cancer Mother Emphysema of lung Social History Social History (Updated 01/20/23 @ 15:02 by Maribel Buckley PA-C) Social History: Surrogate medical decision maker: Ruben Owen, son. Code status: Full code. Smoking packs per day: 1 Smoking cigarettes per day: 20.0 Years smoked: 64 Smoking pack-years: 64.00 Smoking status: Current every day smoker Tobacco type: cigarettes Alcohol intake: never Substance use: never Substance use type: does n
--- NOTE | 2023-01-19 17:42 | ADMGEN ---
This patient, Zeina Owen, was admitted to Medical Room 246-01. Patient/family oriented to hospital policies and general routines including ID bracelet, bed and alarms, visiting hours, pain management, procedures, bathroom and other care routines, personal items, smoking policy, room service/diet, and visiting hours. Information on how to activate the Rapid Response Team has been discussed. Patient/Family are encouraged to report perceived risks to care and to ask questions if they do not understand what they are told or what they should do.
[2023-01-19 21:12] LABS: Hematocrit 28.7 % (37.0-47.0); Hemoglobin 8.6 g/dL (12.0-15.0)
[2023-01-19 22:00] LABS: Digoxin 0.8 ng/mL (0.8-2.0)
[2023-01-20] VITALS (7 sets, daily range): BP systolic 128–150; BP diastolic 56–84; PULSE 70–110; RESP 16–20; TEMP 36.3–36.8; O2SAT 91–96; BMI 37.3
[2023-01-20 05:20] LABS: Hematocrit 26.5 % (37.0-47.0); Hemoglobin 7.7 g/dL (12.0-15.0); Mean Corpuscular HGB Conc 29.1 g/dl (32-36); Mean Corpuscular Hemoglobin 28.4 pg (26-34); Mean Corpuscular Volume 97.8 fl (80-100); Mean Platelet Volume 10.6 fl (7.4-10.4); Platelet Count Result 225 k/mm3 (150-375); Red Blood Count 2.71 M/mm3 (4.2-5.4); Red Cell Distribution Width 16.9 % (11.5-14.5); White Blood Count 8.4 K/mm3 (4.5-10.0)
[2023-01-20 05:29] LABS: Anion Gap 5 mmol/L (8-16); Blood Urea Nitrogen 14 mg/dL (7-17); Calcium 7.9 mg/dL (8.4-10.2); Carbon Dioxide 32 mmol/L (22-30); Chloride 99 mmol/L (98-107); Estimated CRCL calculation 65 ml/min; Estimated Glomerular Filt Rate > 60; Glucose 105 mg/dL (65-110); INR 3.6; Magnesium 1.7 mg/dL (1.6-2.3); Potassium 3.8 mmol/L (3.4-5.0); Prothrombin Time 38.7 Seconds (11.1-14.7); Sodium 136 mmol/L (137-145)
--- NOTE | 2023-01-20 07:01 | PM.IMPN ---
Progress Note: A&P Assessment and Plan (1) Acute blood loss anemia: Code(s): D62 - Acute posthemorrhagic anemia Status: Acute Assessment and Plan: -Hgb 7.7 down from 9.1 yesterday -Supratherapeutic INR. Warfarin held as well as ASA -Stool is Hemoccult + - right thigh hematoma from unknown cause -will x-ray right hip, femur, and knee to make sure there is no fracture that could have contributed to hematoma development -Continue Ferrous sulfate -GI consult (2) Occult GI bleeding: Code(s): R19.5 - Other fecal abnormalities Status: Acute Assessment and Plan: see above (3) Hematoma of right thigh: Code(s): S70.11XA - Contusion of right thigh, initial encounter Status: Acute Assessment and Plan: -unknown source. Patient denies fall or trauma. -supratherapeutic INR on Coumadin. Appropriately held. (4) Fall from ground level: Code(s): W18.30XA - Fall on same level, unspecified, initial encounter Status: Acute Assessment and Plan: -PT/OT consult -Right leg weakness -night cover ordered brain MRI for possible CVA rule out. Unable to obtain due to bladder stimulator. Will obtain CT of the head without contrast. 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 Restarted during admission. (8) Tobacco dependence: Code(s): F17.200 - Nicotine dependence, unspecified, uncomplicated Status: Acute Assessment and Plan: -Will speak to cessation -Offer nicotine patch as needed Subjective Date/time seen: 01/20/23 07:01 Interval history: HPI obtained from chart This is a pleasant 77-year-old female smoker with chronic atrial fibrillation on long-term anticoagulation, congestive heart failure, hypertension, peripheral arterial disease, chronic obstructive pulmonary disease, type 2 diabetes mellitus with peripheral neuropathy, and other comorbidities who presented to the emergency department via EMS from home for evaluation after a fall. The patient provides the following history. She lives in her own home and her daughter and son-in-law do come over and help her out frequently. She is in a wheelchair and has been able to stand and pivot to transfer to the toilet and to bed up until recently. She has become increasingly weak and feels unsteady and she tries to wait until her family members come to visit to use the restroom. Not long prior to arrival her son-in-law a was assisting her to the toilet when ?my knees buckled? and she slid to the ground onto her buttocks. There was no head trauma or loss of consciousness. Family members called 911 and on arrival to ED her vital signs were stable. On labs today she was found to have a hemoglobin of 9.1 which is 3 g lower than what she was last month. Her INR was 3.4. On exam she was noted to have a bruise and hematoma on the right lateral thigh which she states has been present for approximately 1 week though she does not recall how it happened; she denies fall and injury. Her stool was Hemoccult positive on exam. She is being admitted in this setting for further workup. At the time my evaluation she has no current complaints aside from the fact that she does not want to stay in the hospital and wishes to go home. She denies fever, chills, sweats, cold and flu symptoms, chest pain, shortness a breath, nausea, vomiting, diarrhea, dysuria,
[2023-01-20 08:36] LABS: Glucose Point of Care 135 mg/dl (65-105)
[2023-01-20] MEDS: PANTOPRAZOLE SODIUM IV 40 MG VIAL IV PUSH ×2 (08:41→17:29)
[2023-01-20] MEDS: DULoxetine HCL 60 MG CAPSULE.DR PO (08:42)
[2023-01-20] MEDS: METOPROLOL SUCCINATE EXT REL 50 MG TABCR PO (08:43)
[2023-01-20] MEDS: FERROUS SULFATE 325 MG TABLET DR PO ×2 (08:43→17:29)
[2023-01-20] MEDS: DIGOXIN TAB 125 MCG TABLET PO (08:43)
[2023-01-20] MEDS: PRAVASTATIN SODIUM 20 MG TABLET 40 MG PO (08:44)
[2023-01-20] MEDS: FUROSEMIDE 40 MG TABLET PO (08:44)
[2023-01-20] MEDS: POTASSIUM CHLORIDE 20 MEQ ER TABLET PO (08:44)
--- NOTE | 2023-01-20 09:53 | WPDGICN ---
Assessment and Plan Assessment and plan (1) Occult GI bleeding: Code(s): R19.5 - Other fecal abnormalities Status: Acute Assessment and Plan: denies overt gib, found to have occult blood in stool drop h/h could be from use of coumadin with supratherapeutic inr and hematoma in thigh at some point will need colonoscopy but it is no urgent (whenever she can be off coumadin for 5 days or inr <1.5)- this can be scheduled as outpatient (2) Acute blood loss anemia: Code(s): D62 - Acute posthemorrhagic anemia Status: Acute Assessment and Plan: coumadin on hold, inr was supratherapeutic probably from hematoma colonoscopy at some point and can be done as outpatient if patient is agreeable (she says that had one about 5 years ago) (3) Chronic anticoagulation: 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 Status: Acute (4) Fall from ground level: Code(s): W18.30XA - Fall on same level, unspecified, initial encounter Status: Acute (5) Chronic atrial fibrillation, unspecified: Code(s): I48.20 - Chronic atrial fibrillation, unspecified Status: Acute (6) Hematoma of right thigh: Code(s): S70.11XA - Contusion of right thigh, initial encounter Status: Acute (7) Chronic systolic (congestive) heart failure: Code(s): I50.22 - Chronic systolic (congestive) heart failure Status: Acute (8) Decreased ambulation status: Code(s): Z74.09 - Other reduced mobility Status: Acute GI Consult Note Consult date/time: 01/20/23 09:53 Reason for consult: fobt, coumadin use HPI: Zeina Owen is a 77 year old female with history of chronic atrial fibrillation on long-term anticoagulation with coumadin for years, congestive heart failure, hypertension, peripheral arterial disease, chronic obstructive pulmonary disease, type 2 diabetes mellitus with peripheral neuropathy, and other comorbidities who presented to the emergency department via EMS from home for evaluation after a fall. She lives in her own home and her daughter and son-in-law normally come to check on her. She is in a wheelchair but yesterday had more difficulty than usual to stand up even after assistance and was increasingly weak and feels unsteady, she had an episode of ?knees buckled? then she slid to the ground onto her buttocks. Family members called 911 and on arrival to ED her vital signs were stable. Her hemoglobin 9.1 (baseline 12). Her INR was 3.4 and she found to have a bruise and hematoma on the right lateral thigh which she states has been present for approximately 1 week. Her stool was Hemoccult positive on exam but denies overt gib, she says that had colonoscopy about 5 years ago, no change in bowel habits (sometimes she has incontinence but is chronic), no abdominal pain, no weight loss.? Review of Systems Constitutional: Constitutional: Reports weakness Eyes: Eyes: Denies blurry vision ENT: Reports Normal hearing present Cardiovascular: Cardiovascular: Denies chest pain Respiratory: Respiratory: Denies cough Gastrointestinal: Gastrointestinal: Reports constipation (chronic) Genitourinary: Genitourinary: Denies urinary hesitancy Musculoskeletal: Musculoskeletal: Reports arthralgias Integumentary/Breasts: Skin/Breast: Reports unusual bruising Neurologic: Denies confusion Psychiatric: Psychiatric: Denies behavioral changes [facility] Past Medical History Medical History (Updated 01/19/23 @ 23:51 by Maribel Buckley PA-C) Atherosclerotic heart disease of [place] coronary artery without angina pectoris Chronic atrial fibrillation, unspecified Chronic obstructive pulmonary disease, unspecified Chronic systolic (congestive) heart failure Generalized anxiety disorder Hypertension Hypertensive heart disease with heart failure Major depressive disorder, recurrent, mild Normal colonoscopy 2011 Occlusion and stenosis of bilateral carotid arteri
[2023-01-20 10:36] LABS: Hematocrit 28.4 % (37.0-47.0); Hemoglobin 8.4 g/dL (12.0-15.0)
--- NOTE | 2023-01-20 12:40 | PCOTNOTE ---
Attempted OT eval, pt was gone at a CAT scan at 11:30. Will follow.
[2023-01-20 12:41] LABS: Glucose Point of Care 130 mg/dl (65-105)
[2023-01-20 17:19] LABS: Glucose Point of Care 130 mg/dl (65-105)
[2023-01-20 21:47] LABS: Glucose Point of Care 127 mg/dl (65-105)
[2023-01-21] VITALS (7 sets, daily range): BP systolic 129–145; BP diastolic 49–61; PULSE 58–76; RESP 18–20; TEMP 36.1–36.6; O2SAT 96–99
--- NOTE | 2023-01-21 | ECHO_ITS ---
Patient Info Name: Zeina Owen Age: 77 years : 1945 Gender: Female Ht: 66 in Wt: 221 lbs BSA: 2.20 m2 BP: 145 / 55 mmHg Heart Rhythm: Atrial Fibrillation Technical Quality: Good Exam Date: 01/21/2023 9:14 AM Exam Location: [facility] Patient Status: Inpatient Admit Date: 01/19/2023 Staff Ordering Physician: Maribel Buckley PA-C Superintendent: Kristin Qureshi RDCS Attending Provider: Sourav Marsh MD Referring Physician: Ina BARGER; Exam Type: CA echo doppler color flow Study Info Indications - CHF - AFIB Complete two-dimensional, color flow and Doppler transthoracic echocardiogram is performed. Summary 1. Complete two-dimensional, color flow and Doppler transthoracic echocardiogram is performed. 2. Left ventricular chamber dimension is normal. 3. Left ventricular systolic function is normal, estimated at 65-70%. 4. There is mildly increased left ventricular wall thickness. 5. The left ventricular diastolic function is abnormal. 6. The apical septum, and apical cap are hypokinetic. 7. Left atrial chamber dimension is severely enlarged. 8. Right atrial chamber dimension is mildly enlarged. 9. There is moderate aortic valve sclerosis. 10. The mitral valve annulus is severely calcified. 11. There is mild mitral valve regurgitation. 12. The mitral valve has thickened leaflets. 13. There is mild tricuspid valve regurgitation. 14. Severe pulmonary hypertension, estimated pulmonary arterial systolic pressure is 69 mmHg. Left Ventricle Left ventricular chamber dimension is normal. Left ventricular systolic function is normal, estimated at 65-70%. There is mildly increased left ventricular wall thickness. The left ventricular diastolic function is abnormal. The apical septum, and apical cap are hypokinetic. Right Ventricle Right ventricular chamber dimension is normal. Right ventricular systolic function is normal. Left Atria Left atrial chamber dimension is severely enlarged. Right Atria Right atrial chamber dimension is mildly enlarged. Atrial Septum Intact interatrial septum visualized by color flow imaging. Aortic Valve The aortic valve is trileaflet. There is moderate aortic valve sclerosis. There is no aortic valve stenosis. There is trace aortic valve regurgitation. Pulmonic Valve The pulmonic valve is normal. There is no pulmonic valve stenosis. There is trace pulmonic regurgitation. Mitral Valve The mitral valve has thickened leaflets. There is no mitral valve stenosis. There is mild mitral valve regurgitation. The mitral valve annulus is severely calcified. Tricuspid Valve The tricuspid valve leaflets are normal. There is no significant tricuspid valve stenosis. There is mild tricuspid valve regurgitation. Severe pulmonary hypertension, estimated pulmonary arterial systolic pressure is 69 mmHg. Pericardium/Pleural The pericardium appears normal. There is no pericardial effusion. Inferior Vena Cava Dilated inferior vena cava with <50% collapse upon inspiration consistent with elevated right atrial pressure, 10 mmHg. Aorta The aortic root size at the sinus of Valsalva is normal. Left Ventricular Outflow Tract Name Value Normal LVOT 2D LVOT Diameter 1.9 cm LVOT Doppler
[2023-01-21 05:49] LABS: Basophils Absolute Auto 0.1 K/mm3 (0.0-0.1); Basophils Percent Auto 0.9 % (0.2-1.2); Eosinophils Absolute Auto 0.1 K/mm3 (0-0.3); Eosinophils Percent Auto 1.5 % (0-4.4); Hematocrit 25.3 % (37.0-47.0); Hemoglobin 7.5 g/dL (12.0-15.0); Immature Granulocyte Absolute 0.07 K/mm3 (0.00-0.031); Immature Granulocyte Percent A 0.8 % (0-0.5); Lymphocytes Absolute Auto 1.25 K/mm3 (0.9-3.2); Lymphocytes Percent Auto 13.6 % (18.3-44.2); Mean Corpuscular HGB Conc 29.6 g/dl (32-36); Mean Corpuscular Hemoglobin 28.7 pg (26-34); Mean Corpuscular Volume 96.9 fl (80-100); Mean Platelet Volume 10.6 fl (7.4-10.4); Monocytes Absolute Auto 1.1 K/mm3 (0.1-0.6); Neutrophils Absolute Auto 6.5 K/mm3 (1.3-6.7); Neutrophils Percent Auto 71.2 % (45.5-73.1); Platelet Count Result 223 k/mm3 (150-375); Red Blood Count 2.61 M/mm3 (4.2-5.4); Red Cell Distribution Width 16.4 % (11.5-14.5); White Blood Count 9.2 K/mm3 (4.5-10.0)
[2023-01-21 05:58] LABS: INR 2.5; Prothrombin Time 29.4 Seconds (11.1-14.7)
[2023-01-21 05:59] LABS: Partial Thromboplastin Time 72.1 SECONDS (22.3-36.8)
[2023-01-21 06:05] LABS: Alanine Aminotransferase 12 U/L (6-35); Albumin Level 3.6 g/dL (3.5-5.1); Alkaline Phosphatase 87 U/L (38-126); Anion Gap 2 mmol/L (8-16); Aspartate Amino Transferase 17 U/L (14-36); Blood Urea Nitrogen 13 mg/dL (7-17); Calcium 7.8 mg/dL (8.4-10.2); Carbon Dioxide 35 mmol/L (22-30); Chloride 98 mmol/L (98-107); Estimated CRCL calculation 51 ml/min; Estimated Glomerular Filt Rate > 60; Glucose 116 mg/dL (65-110); Magnesium 1.7 mg/dL (1.6-2.3); Potassium 3.7 mmol/L (3.4-5.0); Sodium 135 mmol/L (137-145)
[2023-01-21 08:26] LABS: Glucose Point of Care 146 mg/dl (65-105)
[2023-01-21] MEDS: METOPROLOL SUCCINATE EXT REL 50 MG TABCR PO (10:32)
[2023-01-21] MEDS: FERROUS SULFATE 325 MG TABLET DR PO ×2 (10:32→17:15)
[2023-01-21] MEDS: DULoxetine HCL 60 MG CAPSULE.DR PO (10:32)
[2023-01-21] MEDS: PRAVASTATIN SODIUM 20 MG TABLET 40 MG PO (10:33)
[2023-01-21] MEDS: POTASSIUM CHLORIDE 20 MEQ ER TABLET PO (10:35)
[2023-01-21] MEDS: FUROSEMIDE 40 MG TABLET PO (10:36)
[2023-01-21] MEDS: CYANOCOBALAMIN 1,000 MCG TABLET 1000 MCG PO (10:51)
[2023-01-21] MEDS: DIGOXIN TAB 125 MCG TABLET PO (10:51)
--- NOTE | 2023-01-21 12:00 | WPDGIPROGNO ---
Progress Note: A&P Assessment and Plan (1) Acute blood loss anemia: Code(s): D62 - Acute posthemorrhagic anemia Status: Acute Assessment and Plan: no overt gib could be from thigh hematoma, use of coumadin with supratherapeutic inr (now on hold) she prefers to hold off on colonoscopy at least for now (it can not be done anyways unless inr less than 1.5, now 2.5). She can follow up in office if she decides to proceed with colonoscopy for which coumadin will need to be on hold (2) Supratherapeutic INR: Code(s): R79.1 - Abnormal coagulation profile Status: Acute Assessment and Plan: coumadin on hold (3) Occult GI bleeding: Code(s): R19.5 - Other fecal abnormalities Status: Acute Assessment and Plan: had occult blood in stool but no overt gib she thinks that had colonoscopy about 5 years ago (4) Chronic anticoagulation: Code(s): Z79.01 - longterm (current) use of anticoagulants Status: Acute (5) Hematoma of right thigh: Code(s): S70.11XA - Contusion of right thigh, initial encounter Status: Acute (6) Chronic obstructive pulmonary disease, unspecified: Code(s): J44.9 - Chronic obstructive pulmonary disease, unspecified Status: Acute (7) Fall from ground level: Code(s): W18.30XA - Fall on same level, unspecified, initial encounter Status: Acute Subjective Date/time seen: 01/21/23 12:00 Interval history: she is comfortable, no changes, had yesterday BM- brown without blood. Review of Systems Review of Systems: All systems reviewed & are unremarkable except as noted in HPI and below Exam Const: Other: Chronically ill-appearing female HENMT: Face/Nose/Sinus: Normal nares present Other: Normocephalic, atraumatic. Nares pain bilaterally. Eyes: Other: Pupils are reactive. Extraocular motions intact. Sclerae anicteric. Neck: Neck: supple Other: Resp: Auscultation: clear to auscultation bilaterally Cardio: Other: Irregularly irregular rate and rhythm. GI: Inspection: non-distended GI Palp: Yes Soft to palpation and No Tenderness to palpation present (GI) Auscultation: normal bowel sounds Skin: Other: Warm, dry, and slightly pale. Neuro: Other: Alert. Cranial nerves 2-12 are grossly intact. Speech is clear. Decreased sensation in feet due to neuropathy. Extrem: Other: Bruising on the right lateral thigh with a firm hematoma Psych: Other: Pleasant cooperative with appropriate mood and affect. Objective Data Vital Signs Vital Signs: Vital Signs - 24 hr 01/20/23 14:37 01/20/23 14:00 01/20/23 21:02 Temperature 98 F 97.4 F L Pulse Rate 72 110 H Respiratory Rate 18 20 Blood Pressure 138/74 128/84 Pulse Oximetry 93 96 Oxygen Delivery Room Air Oxygen Flow Rate 01/20/23 21:30 01/21/23 03:53 01/21/23 10:30 Temperature 96.9 F L Pulse Rate 74 74 Respiratory Rate 20 Blood Pressure 145/55 H 134/61 Pulse Oximetry 96 96 97 Oxygen Delivery Nasal Cannula Oxygen Flow Rate 1 01/21/23 10:32 01/21/23 10:51 01/21/23 10:30 Temperature Pulse Rate 76 76 Respiratory Rate Blood Pressure Pulse Oximetry 97 Oxygen Delivery Nasal Cannula Oxygen Flow Rate 1 Intake/Output Intake/Output: Intake & Output 01/18/23 01/19/23 01/20/23 01/21/23 23:59 23:59 23:59 23:59 Intake Total 298 1052 360 Output Total 300 Balance 298 752 360 Meds/Results Medications: Active Medications Generic Name Dose Route Start Last Admin Trade Name Freq PRN Reason Stop Dose Admin Acetaminophen 650 mg 01/19/23 16:04 Acetaminophen 325 Mg Tablet PO Q4H PRN Mild Pain (1-3) or Fever Hydrocodone Bitart/Acetaminophen 1 tab 01/19/23 16:04 Hydrocodone/Acetaminophen (*Crx) 5-325 Mg Tablet PO Q4H PRN Pain Rated 4-6 Cyanocobalamin 1,000 mcg 01/21/23 09:00 01/21/23 10:51 Cyanoc
[2023-01-21 12:16] LABS: Glucose Point of Care 133 mg/dl (65-105)
--- NOTE | 2023-01-21 14:36 | PM.IMPN ---
Progress Note: A&P Assessment and Plan (1) Acute blood loss anemia: Code(s): D62 - Acute posthemorrhagic anemia Status: Acute Assessment and Plan: -Hgb 7.7 down from 9.1 yesterday -Supratherapeutic INR. Warfarin held as well as ASA -Stool is Hemoccult + - right thigh hematoma from unknown cause. Patient still unable to bear weight. -will x-ray right hip, femur, and knee to make sure there is no fracture that could have contributed to hematoma development. XR of femur shows Total right hip arthroplasty with chronic lucencies around the acetabular cup and distal femoral component, consistent with loosening. I'm not sure if this needs to be intervened on so I consulted orthopedics. -Continue Ferrous sulfate -Checked Vitamin B12 low 225, folate normal, folic acid pending -GI consult: Does not need colonoscopy as no overt signs of bleeding, plus INR too high. Will scheduled as an outpatient should she wish to follow through. (2) Occult GI bleeding: Code(s): R19.5 - Other fecal abnormalities Status: Acute Assessment and Plan: -unknown source. Patient denies fall or trauma. -supratherapeutic INR on Coumadin. Appropriately held. (3) Hematoma of right thigh: Code(s): S70.11XA - Contusion of right thigh, initial encounter Status: Acute (4) Fall from ground level: Code(s): W18.30XA - Fall on same level, unspecified, initial encounter Status: Acute Assessment and Plan: -PT/OT consult -Right leg weakness -night cover ordered brain MRI for possible CVA rule out.? Unable to obtain due to bladder stimulator.? Will obtain CT of the head without contrast. 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 1. Complete two-dimensional, color flow and Doppler transthoracic echocardiogram is performed. ? 2. Left ventricular chamber dimension is normal. ? 3. Left ventricular systolic function is normal, estimated at 65-70%. ? 4. There is mildly increased left ventricular wall thickness. ? 5. The left ventricular diastolic function is abnormal. ? 6. The apical septum, and apical cap are hypokinetic. ? 7. Left atrial chamber dimension is severely enlarged. ? 8. Right atrial chamber dimension is mildly enlarged. ? 9. There is moderate aortic valve sclerosis. ? 10. The mitral valve annulus is severely calcified. ? 11. There is mild mitral valve regurgitation. ? 12. The mitral valve has thickened leaflets. ? 13. There is mild tricuspid valve regurgitation. ? 14. Severe pulmonary hypertension, estimated pulmonary arterial systolic pressure is 69 mmHg. (7) Chronic atrial fibrillation, unspecified: Code(s): I48.20 - Chronic atrial fibrillation, unspecified Status: Acute Assessment and Plan: -rate controlled taking diltiazem, metoprolol, digoxin. Restarted during admission. (8) Tobacco dependence: Code(s): F17.200 - Nicotine dependence, unspecified, uncomplicated Status: Acute Assessment and Plan: -Will speak to cessation -Offer nicotine patch as needed (9) Supratherapeutic INR: Code(s): R79.1 - Abnormal coagulation profile Status: Acute Assessment and Plan: Coumadin on hold. INR 2.5 today Subjective Date/time seen: 01/21/23 14:36 Interval history: HPI obtained from chart This is a pleasant 77-year-old female smoker with chronic atrial fibrillation on long-term anticoagulation, congestive heart failure, hypertension, peripheral arterial disease, chronic obstructive pulmonary disease, type 2 diabetes mellitus with peripheral neuropathy, and other comorbidities who p
[2023-01-21 17:20] LABS: Glucose Point of Care 129 mg/dl (65-105)
[2023-01-21] MEDS: PANTOPRAZOLE 40 MG TABLET PO (20:08)
[2023-01-21 20:22] LABS: Glucose Point of Care 159 mg/dl (65-105)
[2023-01-22] VITALS (8 sets, daily range): BP systolic 130–147; BP diastolic 45–72; PULSE 67–78; RESP 16–20; TEMP 36.3–36.8; O2SAT 92–100
[2023-01-22 06:02] LABS: Basophils Absolute Auto 0.1 K/mm3 (0.0-0.1); Basophils Percent Auto 0.6 % (0.2-1.2); Eosinophils Absolute Auto 0.1 K/mm3 (0-0.3); Eosinophils Percent Auto 0.8 % (0-4.4); Hematocrit 27.2 % (37.0-47.0); Immature Granulocyte Absolute 0.07 K/mm3 (0.00-0.031); Immature Granulocyte Percent A 0.6 % (0-0.5); Lymphocytes Absolute Auto 0.87 K/mm3 (0.9-3.2); Lymphocytes Percent Auto 7.9 % (18.3-44.2); Mean Corpuscular HGB Conc 29.4 g/dl (32-36); Mean Corpuscular Hemoglobin 28.6 pg (26-34); Mean Corpuscular Volume 97.1 fl (80-100); Mean Platelet Volume 10.5 fl (7.4-10.4); Neutrophils Absolute Auto 8.9 K/mm3 (1.3-6.7); Neutrophils Percent Auto 81.1 % (45.5-73.1); Platelet Count Result 260 k/mm3 (150-375); Red Cell Distribution Width 16.5 % (11.5-14.5)
[2023-01-22 06:09] LABS: Anion Gap 4 mmol/L (8-16); Blood Urea Nitrogen 16 mg/dL (7-17); Calcium 7.9 mg/dL (8.4-10.2); Carbon Dioxide 34 mmol/L (22-30); Chloride 97 mmol/L (98-107); Estimated CRCL calculation 42 ml/min; Estimated Glomerular Filt Rate 53; Glucose 131 mg/dL (65-110); Potassium 3.7 mmol/L (3.4-5.0); Sodium 135 mmol/L (137-145)
[2023-01-22 06:34] LABS: Anisocytosis 1+ (NORMAL); Hypochromasia 1+ (NORMAL); Large Platelets Present; Microcytosis 1+ (NORMAL); Platelet Estimate Adequate (Adequate); Schistocytes None Seen (NORMAL)
[2023-01-22 06:36] LABS: Iron 49 ug/dL (37-170)
[2023-01-22 06:45] LABS: Percent Iron Saturation 14 % (20-50)
[2023-01-22 07:48] LABS: Vitamin D 25 Hydroxy < 12.8 ng/mL
--- NOTE | 2023-01-22 08:05 | PM.IMPN ---
Progress Note: A&P Assessment and Plan (1) Acute blood loss anemia: Code(s): D62 - Acute posthemorrhagic anemia Status: Acute Assessment and Plan: -Hgb trend 9.1-->8.5-->8.6-->7.7-->8.4-->7.5-->8.0 -INR 1.7 and hemoglobin remained stable with no increase in the bleeding. Will restart warfarin 5 mg p.o. nightly. -Stool is Hemoccult + - right thigh hematoma from unknown cause. Patient still unable to bear weight. -will x-ray right hip, femur, and knee to make sure there is no fracture that could have contributed to hematoma development. -XR of femur shows Total right hip arthroplasty with chronic lucencies around the acetabular cup and distal femoral component, consistent with loosening. I'm not sure if this needs to be intervened on so I consulted orthopedics. -orthopedics is this is a chronic issue seen on imaging from the past and since she is not ambulatory it does not need to be intervened on. -Continue Ferrous sulfate -Checked anemia labs. Vitamin B12 low. Started cyanocobalamin -Checked Vitamin D and Calcium considering significant osteoporosis on imaging. Vitamin D deficient <12.5%. Will start on calcium 500 mg PO BID and Ergocalciferol 50,000 units weekly. Will need outpatient follow up with PCP for lab monitoring. -Recommend Dexa scan as an outpatient -GI consult: Does not need colonoscopy as no overt signs of bleeding, plus INR too high. Will scheduled as an outpatient should she wish to follow through. (2) Occult GI bleeding: Code(s): R19.5 - Other fecal abnormalities Status: Acute Assessment and Plan: -unknown source. Patient denies fall or trauma. -supratherapeutic INR on Coumadin. Appropriately held. (3) Hematoma of right thigh: Code(s): S70.11XA - Contusion of right thigh, initial encounter Status: Acute Assessment and Plan: see 1 (4) Fall from ground level: Code(s): W18.30XA - Fall on same level, unspecified, initial encounter Status: Acute Assessment and Plan: -PT/OT consult -Right leg weakness -CT head was negative for acute process -still unable to bear weight and she has 'chronic lucencies around the acetabular cup and distal femoral component consistent with loosening. Orthopedics was consulted to review. Appreciate recs -patient was ready to go to SNF today but then she developed altered mental status with concerns for infectious process given a mild leukocytosis of 12. Begin workup for UTI versus pneumonia. 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 1. Complete two-dimensional, color flow and Doppler transthoracic echocardiogram is performed. ? 2. Left ventricular chamber dimension is normal. ? 3. Left ventricular systolic function is normal, estimated at 65-70%. ? 4. There is mildly increased left ventricular wall thickness. ? 5. The left ventricular diastolic function is abnormal. ? 6. The apical septum, and apical cap are hypokinetic. ? 7. Left atrial chamber dimension is severely enlarged. ? 8. Right atrial chamber dimension is mildly enlarged. ? 9. There is moderate aortic valve sclerosis. ? 10. The mitral valve annulus is severely calcified. ? 11. There is mild mitral valve regurgitation. ? 12. The mitral valve has thickened leaflets. ? 13. There is mild tricuspid valve regurgitation. ? 14. Severe pulmonary hypertension, estimated pulmonary arterial systolic pressure is 69 mmHg. -Follows with Dr Bhatia at [place]. Recommend follow up at discharge.
[2023-01-22 09:10] LABS: Glucose Point of Care 138 mg/dl (65-105)
[2023-01-22 09:21] LABS: INR 1.7; Prothrombin Time 20.9 Seconds (11.1-14.7)
[2023-01-22 09:22] LABS: Partial Thromboplastin Time 47.1 SECONDS (22.3-36.8)
[2023-01-22] MEDS: CYANOCOBALAMIN 1,000 MCG TABLET 1000 MCG PO (09:23)
[2023-01-22] MEDS: ERGOCALCIFEROL 50,000 UNITS CAPSULE 50000 UNITS PO (09:23)
[2023-01-22] MEDS: CALCIUM CARBONATE (OSCAL) 500 MG TABLET PO ×2 (09:23→17:22)
[2023-01-22] MEDS: DULoxetine HCL 60 MG CAPSULE.DR PO (09:24)
[2023-01-22] MEDS: DIGOXIN TAB 125 MCG TABLET PO (09:24)
[2023-01-22] MEDS: FERROUS SULFATE 325 MG TABLET DR PO ×2 (09:24→17:23)
[2023-01-22] MEDS: METOPROLOL SUCCINATE EXT REL 50 MG TABCR PO (09:25)
[2023-01-22] MEDS: PANTOPRAZOLE 40 MG TABLET PO ×2 (09:25→20:09)
[2023-01-22] MEDS: POTASSIUM CHLORIDE 20 MEQ ER TABLET PO (09:25)
[2023-01-22] MEDS: FUROSEMIDE 40 MG TABLET PO (09:25)
[2023-01-22] MEDS: PRAVASTATIN SODIUM 20 MG TABLET 40 MG PO (09:26)
--- NOTE | 2023-01-22 11:54 | PM.CNOR ---
Assessment and Plan Assessment and plan (1) Hematoma of right thigh: Qualifiers: Encounter type: initial encounter Qualified Code(s): S70.11XA - Contusion of right thigh, initial encounter Code(s): S70.11XA - Contusion of right thigh, initial encounter Status: Acute Assessment and Plan: 77-year-old female with a right thigh hematoma. The radiographic changes showing loosening of her right total hip replacement are chronic and unchanged from earlier x-rays. She really does not ambulate. She just transfers. I think that overall general deconditioning is her issue. She would benefit from therapy , as well as prison. I will follow while she is in the hospital. History of Present Illness HPI Consult date: 01/22/23 Chief complaint: occult gi bleed,weakness Narrative: 77-year-old female asked to see because of leg pain. Her history is significant for having had hip replacement 10 years ago. This was complicated by infection treated by revision but she says she has not ambulated since then. Couple of weeks ago she slipped out of her wheelchair injuring her right knee. Was having difficulty walking because of pain in the distal thigh and so was brought in. Was noted to be supratherapeutic on her INR. Does have a thigh hematoma on the right. Review of Systems Review of Systems: All systems reviewed & are unremarkable except as noted in HPI and below PMFSH Past Medical History Medical History Atherosclerotic heart disease of [place] coronary artery without angina pectoris Chronic atrial fibrillation, unspecified Chronic obstructive pulmonary disease, unspecified Chronic systolic (congestive) heart failure Generalized anxiety disorder Hypertension Hypertensive heart disease with heart failure Major depressive disorder, recurrent, mild Normal colonoscopy 2011 Occlusion and stenosis of bilateral carotid arteries Pure hypercholesterolemia, unspecified Tobacco dependence Surgical History Surgical History History of hysterectomy History of tonsillectomy Status post total hip replacement, bilateral right hip revision due to infection. Family History Family History Father Lung cancer Mother Emphysema of lung Social History Social History Social History: Surrogate medical decision maker: Ruben Owen, son. Code status: Full code. Smoking packs per day: 1 Smoking cigarettes per day: 20.0 Years smoked: 64 Smoking pack-years: 64.00 Smoking status: Current every day smoker Tobacco type: cigarettes Alcohol intake: never Substance use: never Substance use type: does not use Lack of Transportation: No Lack of Food: Never True Current Housing: Decline to Answer Concerned About Future Housing: No Difficulty Paying Gas/Electric Bills: No Difficulty Paying for Meds: No Currently Unemployed: No Education: High School Diploma/GED Difficulty w/ Childcare or Family Care: No Living arrangements: alone Occupation/Education: retired Spiritual care concerns: Yes (Unsure about reaching end of life) Agree to blood products: Yes Meds Home Medications and Allergies Home Medications Medication Instructions Recorded Confirmed Type aspirin 81 mg tablet,delayed 81 mg PO DAILY 09/27/21 01/19/23 History release (Adult Low Dose Aspirin) diltiazem HCl 240 mg 240 mg PO DAILY #90 caps 07/06/22 01/19/23 Rx capsule,extended release 24 hr furosemide 40 mg tablet 40 mg PO DAILY #30 tabs 12/27/22 01/19/23 Rx metformin 500 mg tablet,extended 500 mg PO BID #180 tabs 12/31/22 01/19/23 Rx release 24 hr metoprolol succinate 50 mg 50 mg PO QAM 01/02/23 01/19/23 History tablet,extended release 24 hr warfarin 1 mg tablet 5 mg PO DAILY
[2023-01-22 12:19] LABS: Glucose Point of Care 151 mg/dl (65-105)
[2023-01-22 15:54] LABS: Appearance Urine Cloudy (Clear); Bacteria Urine 4+ /hpf; Bilirubin Urine Negative (Negative); Blood Urine 1+ (Negative); Color Urine Yellow (Yellow); Glucose Urine UA Negative (Negative); Ketones Urine Negative (Negative); Leukocyte Esterase Ur 3+ LEU/UL (Negative); Nitrate Urine Positive (Negative); Non Pathogenic Casts 0-2; Protein Urine Trace mg/dL (Negative); Squamous Epithelial Cell Urine None seen /hpf (Few); WBC Urine >100 /hpf
[2023-01-22 16:07] LABS: Add Urine Microscopic? YES
[2023-01-22] MEDS: SODIUM CHLORIDE 0.9% IV 1,000 ML 75 ML IV CONT (16:15)
[2023-01-22 17:00] LABS: Glucose Point of Care 122 mg/dl (65-105)
[2023-01-22] MEDS: WARFARIN (*PBKC) 5 MG TABLET PO (17:23)
[2023-01-22 20:13] LABS: Glucose Point of Care 174 mg/dl (65-105)
[2023-01-23 01:08] LABS: Glucose Point of Care 176 mg/dl (65-105)
[2023-01-23 05:20] LABS: Basophils Absolute Auto 0.1 K/mm3 (0.0-0.1); Basophils Percent Auto 0.7 % (0.2-1.2); Eosinophils Absolute Auto 0.1 K/mm3 (0-0.3); Hematocrit 24.3 % (37.0-47.0); Hemoglobin 7.1 g/dL (12.0-15.0); Immature Granulocyte Absolute 0.08 K/mm3 (0.00-0.031); Immature Granulocyte Percent A 0.9 % (0-0.5); Lymphocytes Absolute Auto 1.06 K/mm3 (0.9-3.2); Lymphocytes Percent Auto 11.9 % (18.3-44.2); Mean Corpuscular HGB Conc 29.2 g/dl (32-36); Mean Corpuscular Hemoglobin 28.5 pg (26-34); Mean Corpuscular Volume 97.6 fl (80-100); Mean Platelet Volume 10.5 fl (7.4-10.4); Monocytes Percent Auto 11.4 % (2.6-8.5); Neutrophils Absolute Auto 6.6 K/mm3 (1.3-6.7); Neutrophils Percent Auto 74.1 % (45.5-73.1); Platelet Count Result 239 k/mm3 (150-375); Red Blood Count 2.49 M/mm3 (4.2-5.4); Red Cell Distribution Width 16.6 % (11.5-14.5); White Blood Count 8.9 K/mm3 (4.5-10.0)
[2023-01-23 05:23] VITALS: BP 150/64; PULSE 75; RESP 19; TEMP 36.8; O2SAT 88
[2023-01-23 05:31] LABS: INR 1.6; Prothrombin Time 19.9 Seconds (11.1-14.7)
[2023-01-23 05:32] LABS: Alanine Aminotransferase 19 U/L (6-35); Albumin Level 3.6 g/dL (3.5-5.1); Alkaline Phosphatase 88 U/L (38-126); Anion Gap 5 mmol/L (8-16); Aspartate Amino Transferase 28 U/L (14-36); Bilirubin,Total 1.3 mg/dL (0.2-1.3); Blood Urea Nitrogen 16 mg/dL (7-17); Calcium 7.7 mg/dL (8.4-10.2); Carbon Dioxide 32 mmol/L (22-30); Chloride 98 mmol/L (98-107); Estimated CRCL calculation 47 ml/min; Estimated Glomerular Filt Rate 60; Glucose 127 mg/dL (65-110); Potassium 3.7 mmol/L (3.4-5.0); Sodium 135 mmol/L (137-145)
[2023-01-23 05:33] LABS: Partial Thromboplastin Time 44.4 SECONDS (22.3-36.8)
[2023-01-23 06:16] LABS: Platelet Estimate Adequate (Adequate)
[2023-01-23 06:21] LABS: Anisocytosis 1+ (NORMAL); Hypochromasia 1+ (NORMAL); Schistocytes None Seen (NORMAL)
[2023-01-23 08:00] VITALS: O2SAT 92
[2023-01-23 08:58] LABS: Glucose Point of Care 144 mg/dl (65-105)
[2023-01-23 09:58] VITALS: PULSE 77
[2023-01-23] MEDS: DULoxetine HCL 60 MG CAPSULE.DR PO (09:58)
[2023-01-23] MEDS: PANTOPRAZOLE 40 MG TABLET PO ×2 (09:58→20:42)
[2023-01-23] MEDS: PRAVASTATIN SODIUM 20 MG TABLET 40 MG PO (09:58)
[2023-01-23] MEDS: FERROUS SULFATE 325 MG TABLET DR PO ×2 (09:58→17:07)
[2023-01-23] MEDS: CALCIUM CARBONATE (OSCAL) 500 MG TABLET PO ×2 (09:58→17:07)
[2023-01-23] MEDS: FUROSEMIDE 40 MG TABLET PO (09:58)
[2023-01-23] MEDS: METOPROLOL SUCCINATE EXT REL 50 MG TABCR PO (09:58)
[2023-01-23] MEDS: POTASSIUM CHLORIDE 20 MEQ ER TABLET PO (09:58)
[2023-01-23] MEDS: CYANOCOBALAMIN 1,000 MCG TABLET 1000 MCG PO (09:58)
[2023-01-23] MEDS: DIGOXIN TAB 125 MCG TABLET PO (09:58)
--- NOTE | 2023-01-23 12:03 | PM.IMPN ---
Progress Note: A&P Assessment and Plan (1) Acute blood loss anemia: Code(s): D62 - Acute posthemorrhagic anemia Status: Acute Assessment and Plan: -Hgb trend 9.1-->8.5-->8.6-->7.7-->8.4-->7.5-->8.0-->7.1 -INR 1.6, will again hold warfarin -Patient concerned about blood transfusion due to prior MRSA in blood, shoulder and hip. Explained that transfusion is unlikely to cause MRSA to recur, patient will accept if hemoglobin continues to drop. -Ferrous sulfate and B12 being given (2) Occult GI bleeding: Code(s): R19.5 - Other fecal abnormalities Status: Acute Assessment and Plan: -unknown source. Hemoccult was positive, GI deferred scope to outpatient setting. Hemoglobin dropped again after restarting warfarin. Monitor for bloody stools. Warfarin again placed on hold. Transfusion only if continuing to drop. (3) UTI (urinary tract infection): Code(s): N39.0 - Urinary tract infection, site not specified Status: Acute Assessment and Plan: Urinalysis suspicious for urinary tract infection patient on Rocephin at this time. Urine culture results this afternoon with E coli greater than 100,000 colony-forming units, sensitivities pending. Continue Rocephin daily. (4) Hematoma of right thigh: Qualifiers: Encounter type: initial encounter Qualified Code(s): S70.11XA - Contusion of right thigh, initial encounter Code(s): S70.11XA - Contusion of right thigh, initial encounter Status: Acute Assessment and Plan: Usually patient uses right leg to transfer to/from bed/chair, unable to do so at this time. Agnieszka Steady used with max assist. Patient will need SNF upon discharge. (5) Fall from ground level: Code(s): W18.30XA - Fall on same level, unspecified, initial encounter Status: Acute Assessment and Plan: -PT/OT consult -Right leg weakness -CT head was negative for acute process -still unable to bear weight and she has 'chronic lucencies around the acetabular cup and distal femoral component consistent with loosening. Orthopedics was consulted to review. Appreciate recs -u/a positive nitrate, 3+leukocyte esterase, >100 WBC and 4+ urine bacteria, culture pending. Continue Rocephin. -chest x-ray Pulmonary opacities may represent chronic bronchiolitis, as can be seen with atypical infection, asthma, aspiration, and small airways disease. (6) Chronic anticoagulation: Code(s): Z79.01 - FDC (current) use of anticoagulants Status: Acute Assessment and Plan: -INR 1.6 -Will hold warfarin due to drop in H&H. (7) Occlusion and stenosis of bilateral carotid arteries: Code(s): I65.23 - Occlusion and stenosis of bilateral carotid arteries Status: Acute Assessment and Plan: -ECHO Summary ? 1. Complete two-dimensional, color flow and Doppler transthoracic echocardiogram is performed. ? 2. Left ventricular chamber dimension is normal. ? 3. Left ventricular systolic function is normal, estimated at 65-70%. ? 4. There is mildly increased left ventricular wall thickness. ? 5. The left ventricular diastolic function is abnormal. ? 6. The apical septum, and apical cap are hypokinetic. ? 7. Left atrial chamber dimension is severely enlarged. ? 8. Right atrial chamber dimension is mildly enlarged. ? 9. There is moderate aortic valve sclerosis. ? 10. The mitral valve annulus is severely calcified. ? 11. There is mild mitral valve regurgitation. ? 12. The mitral valve has thickened leaflets. ? 13. There is mild tricuspid valve regurgitation. ? 14. Severe pulmonary hypertension, estimated pulmonary arterial systolic pressure is 69 mmHg. -Follows with Dr Bhatia at [place]. Recommend follow up at discharge. (8) Chronic atrial fibrillation, unspecified: Code(s): I48.20 - Chronic atrial fibrillation, unspecified Status: Acute Assessment and Plan: -rate controlled taking diltiazem, metoprolol, digox
[2023-01-23 12:12] LABS: Glucose Point of Care 165 mg/dl (65-105)
--- NOTE | 2023-01-23 13:56 | PCCCNOTE ---
On 01/23/23, the student, [Carol Ramirez], provided care and completed [facility] documentation on this patient. I have reviewed the student's documentation and agree with the findings.
[2023-01-23 14:36] LABS: Hemoglobin 7.6 g/dL (12.0-15.0)
[2023-01-23] MEDS: rOPINIRole HCL 0.25 MG TABLET PO (14:56)
[2023-01-23 17:02] LABS: Glucose Point of Care 146 mg/dl (65-105)
[2023-01-23] MEDS: rOPINIRole HCL 1 MG TABLET PO (20:42)
[2023-01-23] MEDS: SODIUM CHLORIDE 0.9% IV 1,000 ML 75 ML IV CONT (20:43)
[2023-01-23 20:53] VITALS: BP 148/52; PULSE 72; RESP 14; TEMP 36.5; O2SAT 94
[2023-01-23 21:22] LABS: Glucose Point of Care 175 mg/dl (65-105)
[2023-01-24 05:41] LABS: Hematocrit 24.7 % (37.0-47.0); Hemoglobin 7.1 g/dL (12.0-15.0); Mean Corpuscular HGB Conc 28.7 g/dl (32-36); Mean Corpuscular Hemoglobin 28.6 pg (26-34); Mean Corpuscular Volume 99.6 fl (80-100); Mean Platelet Volume 10.4 fl (7.4-10.4); Platelet Count Result 265 k/mm3 (150-375); Red Blood Count 2.48 M/mm3 (4.2-5.4); Red Cell Distribution Width 16.8 % (11.5-14.5); White Blood Count 8.5 K/mm3 (4.5-10.0)
[2023-01-24 05:49] LABS: Alanine Aminotransferase 24 U/L (6-35); Albumin Level 3.7 g/dL (3.5-5.1); Alkaline Phosphatase 94 U/L (38-126); Anion Gap 4 mmol/L (8-16); Aspartate Amino Transferase 32 U/L (14-36); Bilirubin,Total 1.3 mg/dL (0.2-1.3); Blood Urea Nitrogen 17 mg/dL (7-17); Calcium 7.9 mg/dL (8.4-10.2); Carbon Dioxide 32 mmol/L (22-30); Chloride 101 mmol/L (98-107); Estimated CRCL calculation 47 ml/min; Estimated Glomerular Filt Rate 60; Glucose 136 mg/dL (65-110); Potassium 3.9 mmol/L (3.4-5.0); Sodium 137 mmol/L (137-145)
[2023-01-24 05:51] LABS: INR 1.5
[2023-01-24] MEDS: rOPINIRole HCL 1 MG TABLET PO ×3 (06:00→21:50)
[2023-01-24 06:40] VITALS: BP 121/62; PULSE 69; RESP 16; TEMP 36.4; O2SAT 92
[2023-01-24 08:00] VITALS: RESP 16
[2023-01-24] MEDS: PANTOPRAZOLE 40 MG TABLET PO ×2 (08:08→21:50)
[2023-01-24] MEDS: PRAVASTATIN SODIUM 20 MG TABLET 40 MG PO (08:08)
[2023-01-24] MEDS: POTASSIUM CHLORIDE 20 MEQ ER TABLET PO (08:08)
[2023-01-24 08:09] VITALS: PULSE 72
[2023-01-24] MEDS: METOPROLOL SUCCINATE EXT REL 50 MG TABCR PO (08:09)
[2023-01-24 08:10] VITALS: PULSE 72
[2023-01-24] MEDS: DULoxetine HCL 60 MG CAPSULE.DR PO (08:10)
[2023-01-24] MEDS: FERROUS SULFATE 325 MG TABLET DR PO ×2 (08:10→16:17)
[2023-01-24] MEDS: DIGOXIN TAB 125 MCG TABLET PO (08:10)
[2023-01-24] MEDS: CYANOCOBALAMIN 1,000 MCG TABLET 1000 MCG PO (08:10)
[2023-01-24] MEDS: FUROSEMIDE 40 MG TABLET PO (08:10)
[2023-01-24] MEDS: CALCIUM CARBONATE (OSCAL) 500 MG TABLET PO ×2 (08:11→16:17)
[2023-01-24 08:41] LABS: Glucose Point of Care 147 mg/dl (65-105)
[2023-01-24 12:42] LABS: Glucose Point of Care 147 mg/dl (65-105)
--- NOTE | 2023-01-24 12:54 | PM.IMPN ---
Progress Note: A&P Assessment and Plan (1) Acute blood loss anemia: Code(s): D62 - Acute posthemorrhagic anemia Status: Acute Assessment and Plan: -Hgb trend 9.1-->8.5-->8.6-->7.7-->8.4-->7.5-->8.0-->7.1-->7.6-->7.1 -Will hold warfarin and all other anticoagulants after discussion with patient's daughter Carolina who is an RN. -Patient concerned about blood transfusion due to prior MRSA in blood, shoulder and hip. Explained that transfusion is unlikely to cause MRSA to recur, patient will accept if hemoglobin continues to drop. -Ferrous sulfate and B12 being given (2) Occult GI bleeding: Code(s): R19.5 - Other fecal abnormalities Status: Acute Assessment and Plan: -unknown source. Hemoccult was positive, GI deferred scope to outpatient setting. Hemoglobin dropped again after restarting warfarin. Monitor for bloody stools. Warfarin again placed on hold. Transfusion only if continuing to drop. (3) UTI (urinary tract infection): Code(s): N39.0 - Urinary tract infection, site not specified Status: Acute Assessment and Plan: Urine culture temple sensitive E. Coli. Rocephin stopped and Augmentin ordered. (4) Hematoma of right thigh: Qualifiers: Encounter type: initial encounter Qualified Code(s): S70.11XA - Contusion of right thigh, initial encounter Code(s): S70.11XA - Contusion of right thigh, initial encounter Status: Acute Assessment and Plan: Usually patient uses right leg to transfer to/from bed/chair, unable to do so at this time. Agnieszka Steady used with max assist. Patient will need SNF upon discharge. (5) Fall from ground level: Code(s): W18.30XA - Fall on same level, unspecified, initial encounter Status: Acute Assessment and Plan: Lucencies on XR are chronic and Orthopedics does not see any benefit in intervention at this time. Daughter Carolina in agreement. (6) Chronic anticoagulation: Code(s): Z79.01 - detention (current) use of anticoagulants Status: Acute Assessment and Plan: Hold all anticoagulants after family discussion (7) Chronic atrial fibrillation, unspecified: Code(s): I48.20 - Chronic atrial fibrillation, unspecified Status: Acute Assessment and Plan: -rate controlled taking diltiazem, metoprolol, digoxin. (8) Tobacco dependence: Code(s): F17.200 - Nicotine dependence, unspecified, uncomplicated Status: Acute Assessment and Plan: -Will speak to cessation -Offer nicotine patch as needed (9) Restless leg syndrome: Code(s): G25.81 - Restless legs syndrome Status: Acute Assessment and Plan: Will order Requip due to restless leg ongoing for months and worse since in hospital Plan Labs in AM, transfuse if Hemoglobin less than 7. Plan discharge to [facility] tomorrow provided patient remains stable. Time Spent With Patient Time with patient: Greater than 35 minutes Subjective Date/time seen: 01/24/23 12:54 Interval history: HPI obtained from chart This is a pleasant 77-year-old female smoker with chronic atrial fibrillation on long-term anticoagulation, congestive heart failure, hypertension, peripheral arterial disease, chronic obstructive pulmonary disease, type 2 diabetes mellitus with peripheral neuropathy, and other comorbidities who presented to the emergency department via EMS from home for evaluation after a fall. The patient provides the following history. She lives in her own home and her daughter and son-in-law do come over and help her out frequently. She is in a wheelchair and has been able to stand and pivot to transfer to the toilet and to bed up until recently. She has become increasingly weak and feels unsteady and she tries to wait until her family members come to visit to use the restroom. Not long prior to arrival her son-in-law a was assisting her to the toilet when ?my knees buckled? and she slid to the ground onto
[2023-01-24 14:00] VITALS: BP 137/60; PULSE 64; RESP 16; TEMP 36.6; O2SAT 90
[2023-01-24] MEDS: SODIUM CHLORIDE 0.9% IV 1,000 ML 75 ML IV CONT (14:14)
[2023-01-24 17:32] LABS: Glucose Point of Care 151 mg/dl (65-105)
[2023-01-24 20:00] VITALS: BP 104/81; PULSE 65; RESP 14; TEMP 36.8; O2SAT 94
[2023-01-24 20:38] LABS: Glucose Point of Care 161 mg/dl (65-105)
[2023-01-24] MEDS: AMOXICILLIN/CLAVULANATE K 875-125 MG TAB 1 TABLET PO (21:50)
[2023-01-25 07:06] LABS: INR 1.4; Prothrombin Time 17.4 Seconds (11.1-14.7)
[2023-01-25 07:21] LABS: Hematocrit 25.8 % (37.0-47.0); Hemoglobin 7.5 g/dL (12.0-15.0); Mean Corpuscular HGB Conc 29.1 g/dl (32-36); Mean Corpuscular Hemoglobin 29.1 pg (26-34); Mean Platelet Volume 10.4 fl (7.4-10.4); Platelet Count Result 280 k/mm3 (150-375); Red Blood Count 2.58 M/mm3 (4.2-5.4); White Blood Count 9.1 K/mm3 (4.5-10.0)
[2023-01-25 07:25] LABS: Alanine Aminotransferase 29 U/L (6-35); Albumin Level 3.6 g/dL (3.5-5.1); Alkaline Phosphatase 95 U/L (38-126); Anion Gap 9 mmol/L (8-16); Aspartate Amino Transferase 38 U/L (14-36); Bilirubin,Total 1.4 mg/dL (0.2-1.3); Blood Urea Nitrogen 15 mg/dL (7-17); Calcium 8.2 mg/dL (8.4-10.2); Carbon Dioxide 29 mmol/L (22-30); Chloride 99 mmol/L (98-107); Estimated CRCL calculation 53 ml/min; Estimated Glomerular Filt Rate > 60; Glucose 126 mg/dL (65-110); Potassium 3.4 mmol/L (3.4-5.0); Sodium 137 mmol/L (137-145)
--- NOTE | 2023-01-25 08:30 | PM.DS ---
DS: Admitting Diagnosis Discharge Date 01/25/2023 Admitting Diagnosis Acute blood loss anemia Occult GI bleeding Hematoma of right thigh Fall from ground level Chronic anticoagulation Occlusion and stenosis of bilateral carotid arteries Chronic atrial fibrillation Tobacco dependence Supratherapeutic INR DS: Discharge Diagnosis Discharge Diagnosis (1) Acute blood loss anemia: Code(s): D62 - Acute posthemorrhagic anemia Status: Acute (2) Occult GI bleeding: Code(s): R19.5 - Other fecal abnormalities Status: Acute (3) UTI (urinary tract infection): Code(s): N39.0 - Urinary tract infection, site not specified Status: Acute (4) Hematoma of right thigh: Qualifiers: Encounter type: initial encounter Qualified Code(s): S70.11XA - Contusion of right thigh, initial encounter Code(s): S70.11XA - Contusion of right thigh, initial encounter Status: Acute (5) Chronic anticoagulation: Code(s): Z79.01 - alf (current) use of anticoagulants Status: Acute (6) Chronic atrial fibrillation, unspecified: Code(s): I48.20 - Chronic atrial fibrillation, unspecified Status: Acute (7) Tobacco dependence: Code(s): F17.200 - Nicotine dependence, unspecified, uncomplicated Status: Acute (8) Restless leg syndrome: Code(s): G25.81 - Restless legs syndrome Status: Acute DS: Summary Hospital Course Reason for hospitalization: This is a 77-year-old female patient admitted to the hospital status post fall with concern for acute anemia Hemoccult-positive and large right thigh hematoma. Hospital Course: During hospitalization warfarin was held and Gastroenterology consult id for anemia with positive Hemoccult. Gastroenterology did not feel the patient would benefit EGD and colonoscopy and that with warfarin held hemoglobin was stable. Patient did not have any melanotic stools or bright red bleeding. X-ray images the right hip showed concern for hardware loosening from prior right hip replacement. Orthopedics was consulted and this was felt to be a chronic finding not amenable to invasive treatment due to patient's wheelchair confinement at baseline. Physical therapy and occupational therapy were involved with patient care patient had deconditioning requiring Agnieszka Steady and max assist to transfer between chair and bed. Due to overall deconditioning patient will require rehabilitation versus extended care placement in facility. [facility] accepted patient and this was patient's 1st choice. Phone conversation held with patient's daughter Carolina who is a registered nurse with updates. Warfarin had attempted to be restarted during hospitalization but the following day there was another drop in hemoglobin. At this time all anticoagulants are on hold with the understanding that this is not optimal for patient's underlying atrial fibrillation history. However, the risk of worsening anemia through occult GI loss is a more immediate and significant concern. On day of discharge patient states that she was able to independently lift her right leg up onto the bed which she had not been able to do on prior days of hospitalization. She sees this as improvement and possibly able to get strong enough to return to her independent living situation. Labs are stable on day of discharge. Orders placed to have hemoglobin and hematocrit checked in 1 week. Time spent discussing smoking cessation with patient: 3 to 10 minutes Status at Discharge Cognitive/behavioral status at discharge: Awake alert oriented and pleasant Functional status at discharge: wheelchair bound Overall status at discharge: patient is progressing back to baseline Time Spent with Patient Time attestation: Total time spent providing and/or coordinating discharge services: Time spent: Greater than 30 minutes Exam Narrative: General: chronically ill appearing 75-year-old female, sea
[2023-01-25] MEDS: CALCIUM CARBONATE (OSCAL) 500 MG TABLET PO (08:35)
[2023-01-25] MEDS: METOPROLOL SUCCINATE EXT REL 50 MG TABCR PO (08:35)
[2023-01-25] MEDS: PANTOPRAZOLE 40 MG TABLET PO (08:35)
[2023-01-25] MEDS: PRAVASTATIN SODIUM 20 MG TABLET 40 MG PO (08:35)
[2023-01-25] MEDS: POTASSIUM CHLORIDE 20 MEQ ER TABLET PO (08:35)
[2023-01-25] MEDS: FUROSEMIDE 40 MG TABLET PO (08:36)
[2023-01-25] MEDS: FERROUS SULFATE 325 MG TABLET DR PO (08:36)
[2023-01-25] MEDS: AMOXICILLIN/CLAVULANATE K 875-125 MG TAB 1 TABLET PO (08:36)
[2023-01-25] MEDS: DIGOXIN TAB 125 MCG TABLET PO (08:36)
[2023-01-25] MEDS: CYANOCOBALAMIN 1,000 MCG TABLET 1000 MCG PO (08:36)
[2023-01-25] MEDS: DULoxetine HCL 60 MG CAPSULE.DR PO (08:36)
[2023-01-25 08:43] VITALS: BP 153/77; PULSE 80
[2023-01-25 09:11] LABS: Glucose Point of Care 129 mg/dl (65-105)
[2023-01-25 10:33] VITALS: O2SAT 93
[2023-01-25 10:57] LABS: SARS-CoV-2 RNA PCR Negative (Negative)
[2023-01-25 12:11] LABS: Vitamin B1 <6 nmol/L (8-30)
[2023-01-25 12:35] LABS: Glucose Point of Care 144 mg/dl (65-105)
== END 2023-01-25 13:30 | DRG 378 ==
LOC: ANHED 13:37 → ANH2MED 17:18
PROVIDERS: Nurse Practitioner Acute Care; Physician Assistant; Admitting Provider Internal Medicine; Emergency Provider Emergency Medicine; PCP Family Medicine Adolescent Medicine; Visit Provider Nurse Practitioner
DX: K92.2 Gastrointestinal hemorrhage, unspecified (principal); D62 Acute posthemorrhagic anemia; N39.0 Urinary tract infection, site not specified; I48.20 Chronic atrial fibrillation, unspecified; I50.22 Chronic systolic (congestive) heart failure; T84.030A Mechanical loosening of internal right hip prosthetic joint, initial encounter; B96.20 Unspecified Escherichia coli [E. coli] as the cause of diseases classified elsewhere; S70.11XA Contusion of right thigh, initial encounter; I11.0 Hypertensive heart disease with heart failure; Z20.822 Contact with and (suspected) exposure to COVID-19; F17.210 Nicotine dependence, cigarettes, uncomplicated; G25.81 Restless legs syndrome; I25.10 Atherosclerotic heart disease of native coronary artery without angina pectoris; J44.9 Chronic obstructive pulmonary disease, unspecified; I65.23 Occlusion and stenosis of bilateral carotid arteries; R79.1 Abnormal coagulation profile; F41.1 Generalized anxiety disorder; M81.0 Age-related osteoporosis without current pathological fracture; I73.9 Peripheral vascular disease, unspecified; E11.42 Type 2 diabetes mellitus with diabetic polyneuropathy; E55.9 Vitamin D deficiency, unspecified; F32.9 Major depressive disorder, single episode, unspecified; E78.00 Pure hypercholesterolemia, unspecified; W18.30XA Fall on same level, unspecified, initial encounter; Z96.643 Presence of artificial hip joint, bilateral; Z79.01 Long term (current) use of anticoagulants; Z79.82 Long term (current) use of aspirin; Z90.710 Acquired absence of both cervix and uterus; Z99.3 Dependence on wheelchair
CPT/HCPCS: 36415; 70450; 71045; 73060; 73502; 73552; 73562; 80048; 80053; 80162; 81001; 82306; 82607; 82728; 82746; 82948; 83540; 83550; 83735; 84425; 84443; 85014; 85018; 85025; 85027; 85610; 85730; 87077; 87086; 87088; 87186; 87635; 93306; 93970; 96374; 96376; 97110; 97163; 97165; 97530; 97535; 99285; A9270; C9113; G0378; J0696; J7030

== ENCOUNTER 2023-02-18 14:43 | Emergency (ER) | payer MEDICARE, BC, SELFPAY ==
[2023-02-18] VITALS (10 sets, daily range): BP systolic 130–143; BP diastolic 52–77; PULSE 42–63; RESP 17–25; TEMP 37; O2SAT 91–97
--- NOTE | 2023-02-18 14:51 | ECG_ITS ---
Measurements Intervals [place] Rate: 49 P: 223 WA: 324 QRS: -56 QRSD: 95 T: 62 QT: 390 QTc: 353 Interpretive Statements POOR QUALITY ECG WITH BASELINE ELECTRICAL ARTIFACT CANNOT DIAGNOSE ATRIAL RHYTHM LEFT AXIS DEVIATION EVIDENCE OF PREVIOUS ANTERIOR INFARCTION NONSPECIFIC T-WAVE ABNORMALITY ABNORMAL ECG NO PREVIOUS ECG AVAILABLE FOR COMPARISON Electronically Signed On 02-18-2023 17:16:11 CDT by Juanpablo Bhatia M.D.
[2023-02-18 15:05] LABS: Basophils Absolute Auto 0.1 K/mm3 (0.0-0.1); Basophils Percent Auto 1.5 % (0.2-1.2); Eosinophils Absolute Auto 0.2 K/mm3 (0-0.3); Hematocrit 36.1 % (37.0-47.0); Hemoglobin 10.1 g/dL (12.0-15.0); Immature Granulocyte Absolute 0.04 K/mm3 (0.00-0.031); Immature Granulocyte Percent A 0.5 % (0-0.5); Lymphocytes Absolute Auto 1.14 K/mm3 (0.9-3.2); Lymphocytes Percent Auto 14.2 % (18.3-44.2); Mean Corpuscular Hemoglobin 28.2 pg (26-34); Mean Corpuscular Volume 100.8 fl (80-100); Mean Platelet Volume 10.6 fl (7.4-10.4); Monocytes Absolute Auto 0.8 K/mm3 (0.1-0.6); Monocytes Percent Auto 9.3 % (2.6-8.5); Neutrophils Absolute Auto 5.7 K/mm3 (1.3-6.7); Neutrophils Percent Auto 71.5 % (45.5-73.1); Platelet Count Result 232 k/mm3 (150-375); Red Blood Count 3.58 M/mm3 (4.2-5.4); Red Cell Distribution Width 15.9 % (11.5-14.5)
[2023-02-18 15:17] LABS: INR 1.1; Prothrombin Time 14.6 Seconds (11.1-14.7)
[2023-02-18 15:18] LABS: Alanine Aminotransferase 17 U/L (6-35); Albumin Level 4.4 g/dL (3.5-5.1); Alkaline Phosphatase 78 U/L (38-126); Anion Gap 9 mmol/L (8-16); Aspartate Amino Transferase 20 U/L (14-36); Bilirubin,Total 0.7 mg/dL (0.2-1.3); Blood Urea Nitrogen 15 mg/dL (7-17); Calcium 8.5 mg/dL (8.4-10.2); Carbon Dioxide 32 mmol/L (22-30); Chloride 97 mmol/L (98-107); Estimated CRCL calculation 46 ml/min; Estimated Glomerular Filt Rate 53; Glucose 119 mg/dL (65-110); Potassium 3.5 mmol/L (3.4-5.0); Sodium 138 mmol/L (137-145)
[2023-02-18 15:18] LABS: Partial Thromboplastin Time 29.6 SECONDS (22.3-36.8)
[2023-02-18 15:20] LABS: Hypochromasia 1+ (NORMAL); Platelet Estimate Adequate (Adequate)
[2023-02-18 15:21] LABS: Schistocytes None Seen (NORMAL)
[2023-02-18 15:44] LABS: Appearance Urine Clear (Clear); Bacteria Urine None Seen /hpf; Bilirubin Urine Negative (Negative); Blood Urine Negative (Negative); Budding Yeast Urine Present /hpf; Color Urine Yellow (Yellow); Glucose Urine UA Negative (Negative); Ketones Urine Negative (Negative); Leukocyte Esterase Ur Trace LEU/UL (Negative); Need Manual Microscopic Reviewed; Nitrate Urine Negative (Negative); Protein Urine Negative (Negative); RBC Urine 0-2 /hpf (0-2); Specific Grav Ur 1.012 (1.001-1.035); Squamous Epithelial Cell Urine None seen /hpf (Few); pH Urine 5.5 (5.0-9.0)
[2023-02-18 15:46] LABS: Add Urine Microscopic? YES
--- NOTE | 2023-02-18 16:38 | ED.GENADULT ---
HPI - General Adult General Chief complaint: Unspecified Stated complaint: v/h Time Seen by Provider: 02/18/23 15:09 History of Present Illness HPI narrative: Patient is a 77-year-old female who presents ER with concerns for hallucinations by her assisted. Over the last week she has been thinking that a fire hydrant outside of her assisted is a little child. She was also thought people been trying to get in her window. She has not been violent. She was started no new medications. She reports that she was under a lot of stress as she does not like living in her facility and would prefer to be at home. She expresses frustrations as she feels like she should be able to go home though she is still unable to perform independent transfers. Patient reports that she has been wheelchair-bound for at least 10 years and only recently has been unable to transfer. Related Data Home Medications Medication Instructions Recorded Confirmed metoprolol succinate 50 mg 50 mg PO [facility] 01/02/23 01/19/23 tablet,extended release 24 hr digoxin 125 mcg (0.125 mg) tablet 125 mcg PO QAM 01/19/23 01/19/23 duloxetine 60 mg capsule,delayed 60 mg PO QAM 01/19/23 01/19/23 release (Cymbalta) pravastatin 40 mg tablet 40 mg PO QAM 01/19/23 01/19/23 vitamins A,C,Z-jmsz-ntbuht 2,148 2 tablet PO QAM 01/19/23 01/19/23 mcg-113 mg-45 mg-17.4 mg tablet Allergies Allergy/AdvReac Type Severity Reaction Status Date / Time prednisone Allergy Severe RASH Verified 01/19/23 13:12 Review of Systems Review of Systems: All systems reviewed & are unremarkable except as noted in HPI and below Constitutional: Constitutional: Denies chills and Denies fever(s) Cardiovascular: Cardiovascular: Denies chest pain, Denies rapid heart rate and Denies radiating jaw, neck or arm pain Respiratory: Respiratory: Denies cough and Denies dyspnea Gastrointestinal: Gastrointestinal: Denies abdominal pain, Denies nausea and Denies vomiting Psychiatric: Psychiatric: Denies anxiety, Denies auditory hallucinations, Reports visual hallucinations, Denies homicidal ideation and Denies suicidal ideation PMFSH Past Medical History Medical History Atherosclerotic heart disease of [place] coronary artery without angina pectoris Chronic atrial fibrillation, unspecified Chronic obstructive pulmonary disease, unspecified Chronic systolic (congestive) heart failure Generalized anxiety disorder Hypertension Hypertensive heart disease with heart failure Major depressive disorder, recurrent, mild Normal colonoscopy 2011 Occlusion and stenosis of bilateral carotid arteries Pure hypercholesterolemia, unspecified Tobacco dependence Surgical History Surgical History History of hysterectomy History of tonsillectomy Status post total hip replacement, bilateral right hip revision due to infection. Family History Family History Father Lung cancer Mother Emphysema of lung Social History Social History Social History: Surrogate medical decision maker: Ruben Owen, robson. Code status: Full code. Smoking packs per day: 1 Smoking cigarettes per day: 20.0 Years smoked: 64 Smoking pack-years: 64.00 Smoking status: Current every day smoker Tobacco type: cigarettes Alcohol intake: never Substance use: never Substance use type: does not use Lack of Transportation: No Lack of Food: Never True Current Housing: Decline to Answer Concerned About Future Housing: No Difficulty Paying Gas/Electric Bills: No Difficulty Paying for Meds: No Currently Unemployed: No Education: High School Diploma/GED Difficulty w/ Childcare or Family Care: No Living arrangements: alone Occupation/Education: retired Spiritual care concerns: Yes (Unsure abo
--- NOTE | 2023-02-18 17:42 | PC.NURSE ---
Pt told staff she was ready to leave and started taking BP cuff and pulse ox off. This RN told pt we are still running tests and will update her as soon as we know what the plan is for her. Pt is currently on bed alarm and both side rails are up on stretcher.
--- NOTE | 2023-02-18 19:38 | PC.NURSE ---
Patient care report given to EMS crew and patient taken on EMS stretcher back to [facility].
== END 2023-02-18 19:38 ==
PROVIDERS: Emergency Medicine; Emergency Provider Emergency Medicine; PCP Family Medicine Adolescent Medicine
DX: R41.0 Disorientation, unspecified (principal); I25.10 Atherosclerotic heart disease of native coronary artery without angina pectoris; I48.20 Chronic atrial fibrillation, unspecified; I50.22 Chronic systolic (congestive) heart failure; I11.0 Hypertensive heart disease with heart failure; I65.23 Occlusion and stenosis of bilateral carotid arteries; J44.9 Chronic obstructive pulmonary disease, unspecified; E78.00 Pure hypercholesterolemia, unspecified; F41.1 Generalized anxiety disorder; F33.9 Major depressive disorder, recurrent, unspecified; F17.210 Nicotine dependence, cigarettes, uncomplicated; Z96.643 Presence of artificial hip joint, bilateral; Z79.84 Long term (current) use of oral hypoglycemic drugs; R94.31 Abnormal electrocardiogram [ECG] [EKG]
CPT/HCPCS: 36415; 80053; 81001; 85025; 85610; 85730; 87086; 93005; 99284

== ENCOUNTER 2023-03-29 08:06 | Inpatient (IN) | payer MEDICARE, BC, SELFPAY ==
[2023-03-29] VITALS (12 sets, daily range): BP systolic 113–167; BP diastolic 52–84; PULSE 65–107; RESP 14–20; TEMP 36.6–37.1; O2SAT 93–100; BMI 36.7
--- NOTE | ~2023-03-29 | XR_ITS ---
EXAMINATION: XR hand LT min 3V INDICATION: Left hand pain, initial encounter TECHNIQUE: Three views of the left hand are obtained. COMPARISON: None available FINDINGS: There is a minimally displaced, oblique shaft fracture in the mid/distal aspect of the thir d metacarpal. There is a mildly comminuted distal neck fracture of the fourth metacarpal. There is an oblique, minimally displaced shaft fracture in the mid/distal aspect of the fifth metacarpal. No add itional fracture is identified. There is moderate osteoarthritis at the triscaphe joint and in multip le interphalangeal joints. There is soft tissue swelling of the hand. IMPRESSION: 1. Acute fractures of the third, fourth, and fifth metacarpals. Reviewed, dictated and finalized at location B.
--- NOTE | ~2023-03-29 | CT_ITS ---
EXAMINATION: CT brain wo con DATE: 03/29/2023 08:56 INDICATION: Head injury TECHNIQUE: Computed tomography (CT) of the head was performed without intravenous contrast. Sagittal and coronal reconstructions were performed. The mA was adjusted according to patient size. Iterative reconstruction technique was employed. The dose-length product was 605.33 mGy-cm. COMPARISON: head CT dated 01/20/2023 FINDINGS: Small anterior frontal soft tissue swelling. No calvarial fracture. No acute intracranial hemorrhage, acute infarction or abnormal extra axial fluid collection. Small old lacunar infarct at the left bas al ganglia. There is mild scattered white matter hypoattenuation consistent with chronic small vessel ischemic disease. Symmetric prominence of the sulci and subarachnoid spaces overlying the convexitie s consistent with mild to moderate age-appropriate diffuse cerebral volume loss. Ventricles are norm al and symmetric. No mass/mass effect. Changes of bilateral intraocular lens replacement. The orbits, paranasal sinuses and mastoid air cells are normal. Intracranial calcified cerebral atherosclerosis is noted. IMPRESSION: 1. No fracture or acute intracranial process. 2. Small old lacunar infarct at the left basal ganglia. 3. Age-related changes including mild to moderate diffuse volume loss and mild scattered white matter hypoattenuation consistent with chronic small vessel ischemic disease. Reviewed, dictated and finalized at location A. IMPRESSION: 1. No fracture or acute intracranial process. 2. Small old lacunar infarct at the left basal ganglia. 3. Age-related changes including mild to moderate diffuse volume loss and mild scattered white matter hypoattenuation consistent with chronic small vessel isc hemic disease.
--- NOTE | ~2023-03-29 | XR_ITS ---
Lumbosacral Spine: AP and lateral views Clinical History: Pain Findings: The normal lordotic curve is maintained. No fracture or subluxation evident. There is advan rosa degenerative disc narrowing at L3-L4 and L4-L5, with mild to moderate degenerative change in the remaining of the lumbar spine. There is advanced facet arthropathy throughout the lumbar spine. Neuro stimulator device present. The sacroiliac joints are normally outlined. Impression: Advanced degenerative spondylosis of the lumbar spine. No fracture or subluxation evident. Reviewed, dictated and finalized at location M. Impression: Advanced degenerative spondylosis of the lumbar spine. No fracture or subluxation evident.
--- NOTE | ~2023-03-29 | CT_ITS ---
EXAMINATION: CT facial & cervical spine wo DATE: 03/29/2023 08:56 INDICATION: Head injury TECHNIQUE: Computed tomography (CT) of the maxillofacial region and cervical spine was performed with out intravenous contrast. The dose-length product (DLP) was 268.59 mGy-cm. Automated exposure control and iterative reconstruction technique were employed. COMPARISON: 01/20/2023 FINDINGS: MAXILLOFACIAL CT: There are bilateral nasal bone fractures and fracture at the anterior/superior aspect of the nasal se ptum. No additional facial fracture is identified. There is minimal opacification of the anterior eth moidal air cells. There is anterior frontal scalp soft tissue swelling. The globes and orbits are unr emarkable. CERVICAL SPINE CT: There are 3 mm of anterolisthesis of C3 on C4. The vertebral body heights are maintained. There is se dorothy loss of intervertebral disc space height at C4-5, C5-6, and C6-7. There is no fracture. The odon toid process is intact. Calcified carotid artery atherosclerosis is noted. There is severe facet join t osteoarthritis on the left at C3-4. There is otherwise moderate multilevel facet and uncovertebral joint osteoarthritis. IMPRESSION: 1. Bilateral nasal bone fractures and fracture in the anterior/superior aspect of the nasal septum. 2. Severe cervical spondylosis without acute cervical spine fracture. Reviewed, dictated and finalized at location B.
--- NOTE | ~2023-03-29 | XR_ITS ---
EXAMINATION: XR chest 1V portable INDICATION: Hypoxia TECHNIQUE: Portable AP chest at 0912 hours COMPARISON: 01/22/2023 FINDINGS: There are mild diffuse interstitial opacities. The heart size is normal. No pleural effusio n or pneumothorax. There is advanced osteoarthritis of the shoulders. IMPRESSION: 1. Mild pulmonary edema. Reviewed, dictated and finalized at location B. IMPRESSION: 1. Mild pulmonary edema.
--- NOTE | 2023-03-29 08:41 | PC.NURSE ---
upon arrival to ED per EMS pt has dried blood on face and BUE, no active bleeding at this time. Pt reports she was attempting to stand up from wc and didn't realize her ankles were crossed and fell face forward. Pt has c/o left hand pain. Hematoma noted to forehead
--- NOTE | 2023-03-29 09:03 | ED.FALL ---
HPI - Fall General Chief Complaint: Fall Stated Complaint: fall History of Present Illness HPI Narrative: 77-year-old female presented the emergency department for evaluation of increased lower extremity weakness. Patient had a previous stay at [place] and was discharged to home. Patient does live at home on her own. Patient states over the last few days she has had increased lower extremity weakness and increased lower extremity swelling. Related Data Home Medications Medication Instructions Recorded Confirmed pravastatin 40 mg tablet 40 mg PO QAM 01/19/23 03/29/23 Allergies Allergy/AdvReac Type Severity Reaction Status Date / Time prednisone Allergy Severe RASH Verified 01/19/23 13:12 Review of Systems Review of Systems: All systems reviewed & are unremarkable except as noted in HPI and below PMFSH Past Medical History Medical History Atherosclerotic heart disease of [place] coronary artery without angina pectoris Chronic atrial fibrillation, unspecified Chronic obstructive pulmonary disease, unspecified Chronic systolic (congestive) heart failure Generalized anxiety disorder Hypertensive heart disease with heart failure Major depressive disorder, recurrent, mild Normal colonoscopy 2011 Occlusion and stenosis of bilateral carotid arteries Pure hypercholesterolemia, unspecified Tobacco dependence Surgical History Surgical History History of hysterectomy History of tonsillectomy Status post total hip replacement, bilateral right hip revision due to infection. Family History Family History Father Lung cancer Mother Emphysema of lung Social History Social History Social History: Surrogate medical decision maker: Ruben Owen, son. Code status: Full code. Smoking packs per day: 1 Smoking cigarettes per day: 20.0 Years smoked: 64 Smoking pack-years: 64.00 Smoking status: Current every day smoker Alcohol intake: never Substance use: never Substance use type: does not use Lack of Transportation: No Lack of Food: Never True Current Housing: Decline to Answer Concerned About Future Housing: No Difficulty Paying Gas/Electric Bills: No Difficulty Paying for Meds: No Currently Unemployed: No Education: High School Diploma/GED Difficulty w/ Childcare or Family Care: No Living arrangements: alone Occupation/Education: retired Spiritual care concerns: No Agree to blood products: Yes Exam Narrative: APPEARANCE: Well appearing, no pain, no distress, well-nourished. HEAD: normocephalic, nasal swelling with abrasion. EYES: PERRLA/EOMI, conjunctivae clear. NOSE: Normal no drainage EARS:TMS clear with good light reflex. THROAT: Pharynx clear, no exudate. NECK: Supple. No adenopathy, no masses. RESPIRATORY: Airway patent, respirations nonlabored. Clear to auscultation bilaterally, no rales, rhonchi, wheezing. CARDIOVASCULAR: Regular rate and rhythm without murmurs rubs or gallops. ABDOMINAL: Soft, nontender, nondistended, normal bowel sounds MUSCULOSKELETAL: Moves all extremities. Left hand tenderness, neurovascular intact NEURO: Alert. Cranial nerves II through XII intact. Grossly intact SKIN: Warm, dry. Normal Color Course Course Emergency Course: 77-year-old female presented to ED for evaluation after having a fall from her wheelchair. Patient does have nasal fracture and is and left metacarpal fractures. Patient also has an elevated BNP. Consulted plastics and Dr. Allen no longer does hands. I discussed the case with Dr. Castelan and he felt that inpatient consult was not necessarily but did recommend Dr. Carballo for consult as needed. With the patient having no displaced fractures in her currently being splinted he felt that she
--- NOTE | 2023-03-29 09:04 | ECG_ITS ---
Measurements Intervals [place] Rate: 61 P: [place]: 0 QRS: -62 QRSD: 93 T: 8 QT: 349 QTc: 354 Interpretive Statements ATRIAL FIBRILLATION INCOMPLETE RIGHT BUNDLE BRANCH BLOCK INFERIOR INFARCT, AGE INDETERMINATE ANTEROSEPTAL INFARCT, AGE INDETERMINATE BORDERLINE ST-T WAVE ABNORMALITY- HIGH LATERAL LEADS ABNORMAL ECG COMPARED TO ECG 02/18/2023 15:00:52 NO SIGNIFICANT CHANGES Electronically Signed On 03-29-2023 9:33:52 CDT by Mathew Hammond D.O.
[2023-03-29 10:23] LABS: Basophils Absolute Auto 0.1 K/mm3 (0.0-0.1); Basophils Percent Auto 0.7 % (0.2-1.2); Eosinophils Absolute Auto 0.6 K/mm3 (0-0.3); Eosinophils Percent Auto 5.2 % (0-4.4); Hematocrit 37.3 % (37.0-47.0); Hemoglobin 10.6 g/dL (12.0-15.0); Immature Granulocyte Absolute 0.08 K/mm3 (0.00-0.031); Immature Granulocyte Percent A 0.7 % (0-0.5); Lymphocytes Absolute Auto 0.57 K/mm3 (0.9-3.2); Lymphocytes Percent Auto 4.8 % (18.3-44.2); Mean Corpuscular HGB Conc 28.4 g/dl (32-36); Mean Corpuscular Hemoglobin 27.1 pg (26-34); Mean Corpuscular Volume 95.4 fl (80-100); Mean Platelet Volume 10.9 fl (7.4-10.4); Monocytes Percent Auto 8.4 % (2.6-8.5); Neutrophils Absolute Auto 9.5 K/mm3 (1.3-6.7); Neutrophils Percent Auto 80.2 % (45.5-73.1); Platelet Count Result 231 k/mm3 (150-375); Red Blood Count 3.91 M/mm3 (4.2-5.4); Red Cell Distribution Width 17.5 % (11.5-14.5); White Blood Count 11.8 K/mm3 (4.5-10.0)
[2023-03-29 10:34] LABS: Alanine Aminotransferase 13 U/L (6-35); Albumin Level 4.1 g/dL (3.5-5.1); Alkaline Phosphatase 101 U/L (38-126); Anion Gap 7 mmol/L (8-16); Aspartate Amino Transferase 22 U/L (14-36); Bilirubin,Total 0.8 mg/dL (0.2-1.3); Blood Urea Nitrogen 20 mg/dL (7-17); Calcium 8.7 mg/dL (8.4-10.2); Carbon Dioxide 33 mmol/L (22-30); Chloride 101 mmol/L (98-107); Estimated CRCL calculation 42 ml/min; Estimated Glomerular Filt Rate 43; Glucose 153 mg/dL (65-110); Potassium 3.8 mmol/L (3.4-5.0); Sodium 141 mmol/L (137-145)
[2023-03-29 10:43] LABS: Anisocytosis 1+ (NORMAL); Hypochromasia 2+ (NORMAL); NT Pro B Type Natriuretic Pept 5090 pg/mL (19.9-100); Platelet Estimate Adequate (Adequate); Schistocytes None Seen (NORMAL)
--- NOTE | 2023-03-29 11:04 | PC.NURSE ---
straight catheter for sterile UA specimen. Specimen collected, pt slept through procedure
[2023-03-29 11:05] LABS: Influenza A QL RT-PCR Negative (Negative); Influenza B QL RT-PCR Negative (Negative); RSV RNA, RT-PCR Negative (Negative); SARS-CoV-2 RNA PCR Negative (Negative)
[2023-03-29 11:20] LABS: Appearance Urine Clear (Clear); Bacteria Urine None Seen /hpf; Bilirubin Urine Negative (Negative); Blood Urine Negative (Negative); Color Urine Yellow (Yellow); Glucose Urine UA Negative (Negative); Ketones Urine Negative (Negative); Leukocyte Esterase Ur 1+ LEU/UL (Negative); Need Manual Microscopic Reviewed; Nitrate Urine Negative (Negative); Protein Urine Negative (Negative); Specific Grav Ur 1.014 (1.001-1.035); Squamous Epithelial Cell Urine None seen /hpf (Few); Urobilinogen Urine 0.2 mg/dL (<2.0); WBC Urine 21-50 /hpf
[2023-03-29 11:25] LABS: Add Urine Microscopic? YES
[2023-03-29] MEDS: FUROSEMIDE INJ 40 MG/4 ML VIAL IV PUSH ×2 (12:15→21:12)
--- NOTE | 2023-03-29 14:05 | PM.IMHP ---
H&P: HPI History of Present Illness Date/Time: 03/29/23 14:05 Chief Complaint: Fall from Wheel chair Narrative: 77-year-old female presented to ED for evaluation after having a fall from her wheelchair.? According the patient she fell down from wheel chair today and injured her left hand and nose. She denies hitting her head. She had no idea how she fell cande. She denies chest pain. She has mild sob. No abdominal pain. No fever or chills. Patient does have nasal fracture and is and left metacarpal fractures.? Patient also has an elevated BNP.? Consulted plastics and Dr. Allen no longer does hands.? I discussed the case with Dr. Castelan and he felt that inpatient consult was not necessarily but did recommend Dr. Carballo for consult as needed.? With the patient having no displaced fractures in her currently being splinted he felt that she did not need to be seen as inpatient.? Dr. Gee was consulted for the nasal fractures.? I discussed case with Dr. Gee and he was comfortable with the patient having outpatient follow-up next week. Patient was found to have urinary tract infection on UA. Patient admitted to for further evaluation and treatment. Review of Systems Review of Systems: All systems reviewed & are unremarkable except as noted in HPI and below PMFSH Past Medical History Medical History Atherosclerotic heart disease of [place] coronary artery without angina pectoris Chronic atrial fibrillation, unspecified Chronic obstructive pulmonary disease, unspecified Chronic systolic (congestive) heart failure Generalized anxiety disorder Hypertensive heart disease with heart failure Major depressive disorder, recurrent, mild Normal colonoscopy 2011 Occlusion and stenosis of bilateral carotid arteries Pure hypercholesterolemia, unspecified Tobacco dependence Surgical History Surgical History History of hysterectomy History of tonsillectomy Status post total hip replacement, bilateral right hip revision due to infection. Family History Family History Father Lung cancer Mother Emphysema of lung Social History Social History Social History: Surrogate medical decision maker: Ruben Owen, son. Code status: Full code. Smoking packs per day: 1 Smoking cigarettes per day: 20.0 Years smoked: 64 Smoking pack-years: 64.00 Smoking status: Current every day smoker Alcohol intake: never Substance use: never Substance use type: does not use Lack of Transportation: No Lack of Food: Never True Current Housing: Decline to Answer Concerned About Future Housing: No Difficulty Paying Gas/Electric Bills: No Difficulty Paying for Meds: No Currently Unemployed: No Education: High School Diploma/GED Difficulty w/ Childcare or Family Care: No Living arrangements: alone Occupation/Education: retired Spiritual care concerns: No Agree to blood products: Yes Meds Home Medications and Allergies Home Medications Medication Instructions Recorded Confirmed Type furosemide 40 mg tablet 40 mg PO DAILY #30 tabs 12/27/22 03/29/23 Rx ferrous sulfate 325 mg (65 mg 325 mg PO BID #180 tabs 01/16/23 03/29/23 Rx iron) tablet (FeroSul) potassium chloride 20 mEq 20 meq PO DAILY #90 tabs 01/16/23 03/29/23 Rx tablet,extended release pravastatin 40 mg tablet 40 mg PO QAM 01/19/23 03/29/23 History acetaminophen 325 mg tablet (Mapap 650 mg PO Q4H PRN Mild Pain (1-3) 01/24/23 03/29/23 Rx (acetaminophen)) Or Fever #100 tabs calcium carbonate 500 mg calcium 500 mg PO BIDWM #60 tabs 01/24/23 03/29/23 Rx (1,250 mg) tablet (Oyster Shell Calcium 500) cyanocobalamin (vitamin B-12) 1,000 mcg PO QAM #30 tabs 01/24/23 03/29/23 Rx 1,000 mcg tablet (Vitamin B-12) ergocalciferol (angelika
--- NOTE | 2023-03-29 14:44 | ADMGEN ---
This patient, Zeina Owen, was admitted to [facility] Surg Room 321-01. Patient/family oriented to hospital policies and general routines including ID bracelet, bed and alarms, visiting hours, pain management, procedures, bathroom and other care routines, personal items, smoking policy, room service/diet, and visiting hours. Information on how to activate the Rapid Response Team has been discussed. Patient/Family are encouraged to report perceived risks to care and to ask questions if they do not understand what they are told or what they should do.
[2023-03-29 16:55] LABS: Glucose Point of Care 122 mg/dl (65-105)
[2023-03-29] MEDS: OLANZapine 5 MG TABLET PO (21:12)
[2023-03-29] MEDS: rOPINIRole HCL 1 MG TABLET PO (21:12)
[2023-03-29] MEDS: CALCIUM CARBONATE (OSCAL) 500 MG TABLET PO (21:12)
[2023-03-29] MEDS: PANTOPRAZOLE 40 MG TABLET PO (21:12)
[2023-03-29 22:10] LABS: Glucose Point of Care 123 mg/dl (65-105)
[2023-03-30] VITALS (12 sets, daily range): BP systolic 129–142; BP diastolic 49–70; PULSE 74–93; RESP 18–20; TEMP 36.6–37.3; O2SAT 83–98
[2023-03-30 06:06] LABS: Basophils Absolute Auto 0.1 K/mm3 (0.0-0.1); Basophils Percent Auto 0.8 % (0.2-1.2); Eosinophils Absolute Auto 0.7 K/mm3 (0-0.3); Eosinophils Percent Auto 8.5 % (0-4.4); Hematocrit 35.6 % (37.0-47.0); Hemoglobin 10.3 g/dL (12.0-15.0); Immature Granulocyte Absolute 0.05 K/mm3 (0.00-0.031); Immature Granulocyte Percent A 0.6 % (0-0.5); Lymphocytes Absolute Auto 0.81 K/mm3 (0.9-3.2); Lymphocytes Percent Auto 9.6 % (18.3-44.2); Mean Corpuscular HGB Conc 28.9 g/dl (32-36); Mean Corpuscular Hemoglobin 27.2 pg (26-34); Mean Corpuscular Volume 93.9 fl (80-100); Mean Platelet Volume 10.7 fl (7.4-10.4); Monocytes Percent Auto 11.8 % (2.6-8.5); Neutrophils Absolute Auto 5.8 K/mm3 (1.3-6.7); Neutrophils Percent Auto 68.7 % (45.5-73.1); Platelet Count Result 218 k/mm3 (150-375); Red Blood Count 3.79 M/mm3 (4.2-5.4); Red Cell Distribution Width 17.4 % (11.5-14.5); White Blood Count 8.4 K/mm3 (4.5-10.0)
--- NOTE | 2023-03-30 06:11 | ECG_ITS ---
Measurements Intervals [place] Rate: 93 P: 60 OK: 348 QRS: -59 QRSD: 98 T: 71 QT: 341 QTc: 426 Interpretive Statements ATRIAL FIBRILLATION LEFT AXIS DEVIATION ANTEROSEPTAL INFARCT, AGE INDETERMINATE INFERIOR INFARCT, AGE INDETERMINATE BORDERLINE ST-T WAVE ABNORMALITY- HIGH LATERAL LEADS BASELINE ARTIFACT- I, II, AVR, V1 ABNORMAL ECG COMPARED TO ECG 03/29/2023 09:23:56 NO SIGNIFICANT CHANGES Electronically Signed On 03-30-2023 7:38:56 CDT by Mathew Hammond D.O.
[2023-03-30 06:16] LABS: Alanine Aminotransferase 11 U/L (6-35); Albumin Level 3.7 g/dL (3.5-5.1); Alkaline Phosphatase 92 U/L (38-126); Anion Gap 3 mmol/L (8-16); Aspartate Amino Transferase 17 U/L (14-36); Bilirubin,Total 0.8 mg/dL (0.2-1.3); Blood Urea Nitrogen 18 mg/dL (7-17); Calcium 8.5 mg/dL (8.4-10.2); Carbon Dioxide 39 mmol/L (22-30); Chloride 95 mmol/L (98-107); Estimated CRCL calculation 54 ml/min; Estimated Glomerular Filt Rate 60; Glucose 121 mg/dL (65-110); Potassium 3.3 mmol/L (3.4-5.0); Sodium 137 mmol/L (137-145)
[2023-03-30 06:29] LABS: Troponin I < 0.012 ng/mL (0.000-0.034)
[2023-03-30 07:10] LABS: Hypochromasia 1+ (NORMAL); Platelet Estimate Adequate (Adequate)
[2023-03-30 07:11] LABS: Anisocytosis 1+ (NORMAL); Schistocytes None Seen (NORMAL)
[2023-03-30 08:08] LABS: Glucose Point of Care 124 mg/dl (65-105)
[2023-03-30] MEDS: POTASSIUM CHLORIDE 20 MEQ ER TABLET 40 MEQ PO (09:09)
[2023-03-30] MEDS: FERROUS SULFATE 325 MG TABLET DR PO ×2 (09:09→17:18)
[2023-03-30] MEDS: MAGNESIUM OXIDE 400 MG TABLET PO (09:09)
[2023-03-30] MEDS: FUROSEMIDE INJ 40 MG/4 ML VIAL IV PUSH ×2 (09:09→20:39)
[2023-03-30] MEDS: PANTOPRAZOLE 40 MG TABLET PO ×2 (09:09→20:39)
[2023-03-30] MEDS: CALCIUM CARBONATE (OSCAL) 500 MG TABLET PO ×2 (09:09→17:18)
[2023-03-30] MEDS: CYANOCOBALAMIN 1,000 MCG TABLET 1000 MCG PO (09:09)
[2023-03-30] MEDS: POTASSIUM CHLORIDE 20 MEQ ER TABLET PO (09:09)
[2023-03-30] MEDS: rOPINIRole HCL 1 MG TABLET PO ×2 (09:09→17:18)
[2023-03-30] MEDS: PRAVASTATIN SODIUM 20 MG TABLET 40 MG PO (09:09)
[2023-03-30] MEDS: dilTIAZem HCL CD 240 MG CAP.24HR PO (09:09)
--- NOTE | 2023-03-30 10:35 | PCPTNOTE ---
attempted PT eval, pt is just waking up, not feeling well and request PT come back later today.
--- NOTE | 2023-03-30 10:59 | PM.IMPN ---
Progress Note: A&P Assessment and Plan (1) Fall: Code(s): W19.XXXA - Unspecified fall, initial encounter Status: Acute Assessment and Plan: Monitor closely, physical therapy to see patient. (2) Fractured nose: Code(s): S02.2XXA - Fracture of nasal bones, initial encounter for closed fracture Status: Acute Assessment and Plan: ENT consult and pain management. (3) Fracture of left hand: Code(s): S62.92XA - Unspecified fracture of left wrist and hand, initial encounter for closed fracture Status: Acute Assessment and Plan: Ortho consult and pain management. (4) Acute on chronic systolic heart failure: Code(s): I50.23 - Acute on chronic systolic (congestive) heart failure Status: Acute Assessment and Plan: Continue with IV diuresis and consult Cardiology. Monitor urine output (5) UTI (urinary tract infection): Code(s): N39.0 - Urinary tract infection, site not specified Status: Acute Assessment and Plan: Urine culture and IV antibiotics. (6) Hypertension: Code(s): I10 - Essential (primary) hypertension Status: Acute Assessment and Plan: Stable on current meds, continue current treatment. (7) Chronic atrial fibrillation, unspecified: Code(s): I48.20 - Chronic atrial fibrillation, unspecified Status: Acute Assessment and Plan: Stable, continue current treatment. (8) Elevated blood sugar: Code(s): R73.9 - Hyperglycemia, unspecified Status: Acute Assessment and Plan: Diet inst and sliding scake insulin Subjective Date/time seen: 03/30/23 10:59 Interval history: Patient was seen during the morning rounds today. Feeling much better. Pain controlled. No sob or chest pain. No abdominal pain or nausea. Mood stable. Review of Systems Review of Systems: All systems reviewed & are unremarkable except as noted in HPI and below Exam Narrative: GENERAL: Well-appearing, well-nourished, and in no acute distress. HEAD: Normocephalic, atraumatic. EYES: PERRL and EOMI. ENT: Mucous membranes moist. Fracture nose CHEST: Clear to auscultation.? No respiratory distress. HEART: Irregular regular rate and rhythm that is bradycardic.? Normal peripheral pulses. ABDOMEN: Soft, nontender, nondistended. EXTREMITIES: Normal range of motion.? No edema. Left hand fracture and in a splint SKIN: Warm, dry, no rash. NEURO: Alert and oriented x3. PSYCH: Normal mood and affec Objective Data Vital Signs Vital Signs: Vital Signs - 24 hr 03/29/23 11:02 03/29/23 11:17 03/29/23 12:12 Temperature 36.7 C 36.7 C Pulse Rate 80 69 70 Respiratory Rate 20 20 18 Blood Pressure 127/61 123/58 L 141/71 H Pulse Oximetry 100 98 98 Oxygen Delivery Oxygen Flow Rate 03/29/23 14:00 03/29/23 15:11 03/29/23 16:00 Temperature 37.1 C Pulse Rate 107 H 70 Respiratory Rate 18 Blood Pressure 150/52 H Pulse Oximetry 96 Oxygen Delivery Room Air Oxygen Flow Rate 03/29/23 20:00 03/29/23 22:00 03/29/23 20:00 Temperature 36.6 C Pulse Rate 65 76 Respiratory Rate 14 Blood Pressure 167/71 H Pulse Oximetry 96 Oxygen Delivery Room Air Oxygen Flow Rate 03/30/23 00:00 03/30/23 04:00 03/30/23 05:32 Temperature Pulse Rate 86 83 Respiratory Rate Blood Pressure Pulse Oximetry 83 L Oxygen Delivery Room Air Oxygen Flow Rate 03/30/23 05:33 03/30/23 06:00 03/30/23 08:00 Temperature 36.6 C Pulse Rate 92 Respiratory Rate 18 Blood Pressure 142/65 H Pulse Oximetry 93 93 93 Oxygen Delivery Nasal Cannula Nasal Cannula Oxygen Flow Rate 3 3 Intake/Output Intake/Output: Intake & Output 03/27/23 03/28/23 03/29/23 03/30/23 23:59 23:59 23:59 23:59 Intake Total 290 200 Output Total 1850 1100 Balance -5640 -900 Meds/Results Medications: Active Medications Generic Name Dose Route Start Last Admin Trade Name Jason
[2023-03-30 12:05] LABS: Glucose Point of Care 174 mg/dl (65-105)
--- NOTE | 2023-03-30 13:05 | PCPTNOTE ---
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 Lunch was present, tried to encourage pt to get OOB to eat, she reported she was tired and refused PT at this time.
--- NOTE | 2023-03-30 16:05 | PM.CNCAR ---
Assessment and Plan Assessment and plan (1) CHF (congestive heart failure): Qualifiers: Heart failure chronicity: acute on chronic Heart failure type: diastolic Qualified Code(s): I50.33 - Acute on chronic diastolic (congestive) heart failure Code(s): I50.9 - Heart failure, unspecified Status: Acute Assessment and Plan: Mild acute on chronic heart failure with preserved ejection fraction EF 65-70% by echo 01/2023. Severe pulmonary hypertension noted by echocardiogram. Continue IV Lasix 40 mg IV q.12 hours. Accurate input and output, daily weight critically important. Check BMP and electrolytes in a.m.. Monitor BP. Replete potassium as needed to keep potassium around 4.0. All questions answered the patient's satisfaction. Patient verbalized understanding and agreed with plan of care. Anticipate may be able to transition to oral Lasix within the next 24-48 hours. (2) Persistent atrial fibrillation: Code(s): I48.19 - Other persistent atrial fibrillation Status: Acute Assessment and Plan: Heart rate controlled, asymptomatic on diltiazem 240 mg daily. Continue for now. Patient is not an anticoagulation candidate due to frequent falls, history of GI bleed to catastrophic potential bleeding. Would recommend at least aspirin daily, red, given recent GI bleed with ongoing anemia on b.i.d. pantoprazole will hold off for now. (3) Recurrent falls: Code(s): R29.6 - Repeated falls Status: Acute Assessment and Plan: Patient high risk for falls and subsequent injury. PT OT for strengthening conditioning. Patient attributes this to diabetic neuropathy and generalized weakness due to sedentary lifestyle. No symptoms suggestive of orthostatic hypotension or syncope. (4) Contraindication to anticoagulation therapy: Code(s): Z53.09 - Procedure and treatment not carried out because of other contraindication Status: Acute Assessment and Plan: Patient has a history of multiple recurrent falls with injuries including this admission with facial injury but without loss of consciousness. Patient also has a history of GI bleed in ongoing anemia. Patient is not a candidate for anticoagulation as risk clearly exceeds benefit. Discussed at great length the patient and family at bedside. Discussed potential consideration as an outpatient for left atrial appendage occlusion device but this would need to be discussed further regarding risk versus benefit with Dr. Bhatia in the office as this is not performed at this institution. Patient verbalized understanding and agreed. Would consider at minimum aspirin 81 mg daily, however, given history of GI bleed this also complicates management. (5) UTI (urinary tract infection): Code(s): N39.0 - Urinary tract infection, site not specified Status: Acute Assessment and Plan: Continue IV ceftriaxone and management per primary service. This likely contributed patient's weakness and increasing fall risk. (6) History of GI bleed: Code(s): Z87.19 - Personal history of other diseases of the digestive system Status: Acute Assessment and Plan: H&H stable. Continue to monitor CBC. Consider initiation of aspirin 81 mg daily if okay with GI. Continue pantoprazole 40 mg twice daily. (7) Hyperlipidemia associated with type 2 diabetes mellitus: Code(s): E11.69 - Type 2 diabetes mellitus with other specified complication; E78.5 - Hyperlipidemia, unspecified Status: Acute Assessment and Plan: Continue pravastatin 40 mg at bedtime. History of Present Illness History of Present Illness Consult date/time: Date of service: 03/30/23 16:05 Requesting physician: Julian Walls MD Consult reason: congestive heart failure Reason For Visit: And Fracture/Nasal Fracture/CHF Narrative: Patient is a 77-year-old female with recent discharge in January status post fall with acute Hemoccult-
[2023-03-30 16:44] LABS: Glucose Point of Care 146 mg/dl (65-105)
[2023-03-30] MEDS: OLANZapine 5 MG TABLET PO (20:39)
[2023-03-30] MEDS: TOLNAFTATE 1% POWDER 45 GM BTL 1 APPLIC TOPICAL (20:39)
[2023-03-30 21:39] LABS: Glucose Point of Care 175 mg/dl (65-105)
[2023-03-31] VITALS (11 sets, daily range): BP systolic 125–149; BP diastolic 56–80; PULSE 72–100; RESP 16–18; TEMP 36.1–36.7; O2SAT 92–97
[2023-03-31 07:18] LABS: Alanine Aminotransferase 10 U/L (6-35); Albumin Level 3.7 g/dL (3.5-5.1); Alkaline Phosphatase 90 U/L (38-126); Aspartate Amino Transferase 16 U/L (14-36); Blood Urea Nitrogen 16 mg/dL (7-17); Calcium 8.6 mg/dL (8.4-10.2); Carbon Dioxide > 40 mmol/L (22-30); Chloride 89 mmol/L (98-107); Estimated CRCL calculation 49 ml/min; Estimated Glomerular Filt Rate 53; Glucose 118 mg/dL (65-110); Potassium 3.4 mmol/L (3.4-5.0); Sodium 135 mmol/L (137-145)
[2023-03-31 07:54] LABS: Glucose Point of Care 129 mg/dl (65-105)
[2023-03-31] MEDS: POTASSIUM CHLORIDE 20 MEQ ER TABLET PO (09:47)
[2023-03-31] MEDS: PRAVASTATIN SODIUM 20 MG TABLET 40 MG PO (09:47)
[2023-03-31] MEDS: CALCIUM CARBONATE (OSCAL) 500 MG TABLET PO ×2 (09:47→17:06)
[2023-03-31] MEDS: FERROUS SULFATE 325 MG TABLET DR PO ×2 (09:47→17:06)
[2023-03-31] MEDS: PANTOPRAZOLE 40 MG TABLET PO ×2 (09:47→20:37)
[2023-03-31] MEDS: FUROSEMIDE INJ 40 MG/4 ML VIAL IV PUSH ×2 (09:48→20:37)
[2023-03-31] MEDS: dilTIAZem HCL CD 240 MG CAP.24HR PO (09:48)
[2023-03-31] MEDS: CYANOCOBALAMIN 1,000 MCG TABLET 1000 MCG PO (09:48)
[2023-03-31] MEDS: rOPINIRole HCL 1 MG TABLET PO ×2 (09:48→17:07)
[2023-03-31] MEDS: MAGNESIUM OXIDE 400 MG TABLET PO (09:52)
--- NOTE | 2023-03-31 09:54 | PM.IMPN ---
Progress Note: A&P Assessment and Plan (1) Fall: Code(s): W19.XXXA - Unspecified fall, initial encounter Status: Acute Assessment and Plan: Monitor closely, physical therapy to see patient. (2) Fractured nose: Code(s): S02.2XXA - Fracture of nasal bones, initial encounter for closed fracture Status: Acute Assessment and Plan: ENT consult and pain management. (3) Fracture of left hand: Code(s): S62.92XA - Unspecified fracture of left wrist and hand, initial encounter for closed fracture Status: Acute Assessment and Plan: Ortho consult and pain management. (4) Acute on chronic systolic heart failure: Code(s): I50.23 - Acute on chronic systolic (congestive) heart failure Status: Acute Assessment and Plan: Continue with IV diuresis and consult Cardiology. Monitor urine output (5) UTI (urinary tract infection): Code(s): N39.0 - Urinary tract infection, site not specified Status: Acute Assessment and Plan: Urine culture and IV antibiotics. (6) Hypertension: Code(s): I10 - Essential (primary) hypertension Status: Acute Assessment and Plan: Stable on current meds, continue current treatment. (7) Chronic atrial fibrillation, unspecified: Code(s): I48.20 - Chronic atrial fibrillation, unspecified Status: Acute Assessment and Plan: Stable, continue current treatment. (8) Elevated blood sugar: Code(s): R73.9 - Hyperglycemia, unspecified Status: Acute Assessment and Plan: Diet inst and sliding scake insulin Plan 03/31/2023 Case discussed with daughter in detail. Agreed with current plan of care and treatment. Will start physical therapy. Continue current treatment. Care coordination consult for rehab/snf placement. Subjective Date/time seen: 03/31/23 09:54 Interval history: Patient was seen during the morning rounds today. Feeling much better. No new overnight complaints Pain controlled. No sob or chest pain. No abdominal pain or nausea. Mood stable. Review of Systems Review of Systems: All systems reviewed & are unremarkable except as noted in HPI and below Exam Narrative: GENERAL: Well-appearing, well-nourished, and in no acute distress. HEAD: Normocephalic, atraumatic. EYES: PERRL and EOMI. ENT: Mucous membranes moist. Fracture nose CHEST: Clear to auscultation.? No respiratory distress. HEART: Irregular regular rate and rhythm that is bradycardic.? Normal peripheral pulses. ABDOMEN: Soft, nontender, nondistended. EXTREMITIES: Normal range of motion.? No edema. Left hand fracture and in a splint SKIN: Warm, dry, no rash. NEURO: Alert and oriented x3. PSYCH: Normal mood and affec Objective Data Vital Signs Vital Signs: Vital Signs - 24 hr 03/30/23 13:05 03/30/23 12:00 03/30/23 14:00 Temperature 37.3 C Pulse Rate 76 93 Respiratory Rate 20 Blood Pressure 141/49 H Pulse Oximetry 94 94 Oxygen Delivery Nasal Cannula Oxygen Flow Rate 3 03/30/23 16:00 03/30/23 20:00 03/30/23 22:00 Temperature 36.8 C Pulse Rate 77 74 Respiratory Rate 20 Blood Pressure 129/70 Pulse Oximetry 94 98 Oxygen Delivery Nasal Cannula Oxygen Flow Rate 2 03/30/23 20:00 03/31/23 00:00 03/31/23 04:00 Temperature Pulse Rate 93 100 88 Respiratory Rate Blood Pressure Pulse Oximetry Oxygen Delivery Oxygen Flow Rate 03/31/23 06:00 Temperature 36.1 C L Pulse Rate 84 Respiratory Rate 16 Blood Pressure 149/80 H Pulse Oximetry 93 Oxygen Delivery Oxygen Flow Rate Intake/Output Intake/Output: Intake & Output 03/28/23 03/29/23 03/30/23 03/31/23 23:59 23:59 23:59 23:59 Intake Total 290 762 700 Output Total 1850 4000 1000 [facility] -1560 -3238 -300 Meds/Results Medications: Active Medications Generic Name Dose Route Start Last Admin Trade Name Freq PRN Reason Stop Dose Admin Acetamino
--- NOTE | 2023-03-31 10:00 | PCPTNOTE ---
attempted PT evaluation at 900, pt refused, stated she was tired and asked PT to come back later.
[2023-03-31] MEDS: ENOXAPARIN 40 MG/0.4 ML SYRINGE SUB-Q (10:11)
[2023-03-31] MEDS: TOLNAFTATE 1% POWDER 45 GM BTL 1 APPLIC TOPICAL ×2 (10:11→20:37)
[2023-03-31 11:39] LABS: Glucose Point of Care 227 mg/dl (65-105)
[2023-03-31] MEDS: INSULIN ASPART (*BKC) 100 UNITS/ML SUB-Q (11:59)
--- NOTE | 2023-03-31 15:37 | PM.PNCARD ---
Progress Note: A&P Assessment and Plan (1) CHF (congestive heart failure): Qualifiers: Heart failure chronicity: acute on chronic Heart failure type: diastolic Qualified Code(s): I50.33 - Acute on chronic diastolic (congestive) heart failure Code(s): I50.9 - Heart failure, unspecified Status: Acute Assessment and Plan: Mild acute on chronic heart failure with preserved ejection fraction EF 65-70% by echo 01/2023. Severe pulmonary hypertension noted by echocardiogram. Continue IV Lasix 40 mg IV q.12 hours today. If she has a good response overnight change to oral regimen Bumex 1 mg daily. Accurate input and output, daily weight critically important. Check BMP and electrolytes in a.m.. Monitor BP. Replete potassium as needed to keep potassium around 4.0. Potassium a little low around 3.4. Will give potassium chloride 40 mEq p.o. x1. (2) Persistent atrial fibrillation: Code(s): I48.19 - Other persistent atrial fibrillation Status: Acute Assessment and Plan: Heart rate controlled, asymptomatic on diltiazem 240 mg daily. Continue for now. Patient is not an anticoagulation candidate due to frequent falls, history of GI bleed to catastrophic potential bleeding. Would recommend at least aspirin daily, however, given recent GI bleed with ongoing anemia on b.i.d. pantoprazole will hold off for now. (3) Recurrent falls: Code(s): R29.6 - Repeated falls Status: Acute Assessment and Plan: Patient high risk for falls and subsequent injury. PT OT for strengthening conditioning. Patient attributes this to diabetic neuropathy and generalized weakness due to sedentary lifestyle. No symptoms suggestive of orthostatic hypotension or syncope. (4) Contraindication to anticoagulation therapy: Code(s): Z53.09 - Procedure and treatment not carried out because of other contraindication Status: Acute Assessment and Plan: Patient has a history of multiple recurrent falls with injuries including this admission with facial injury but without loss of consciousness. Patient also has a history of GI bleed in ongoing anemia. Patient is not a candidate for anticoagulation as risk clearly exceeds benefit. Discussed at great length the patient and family at bedside. Discussed potential consideration as an outpatient for left atrial appendage occlusion device but this would need to be discussed further regarding risk versus benefit with Dr. Bhatia in the office as this is not performed at this institution. Patient verbalized understanding and agreed. Would consider at minimum aspirin 81 mg daily, however, given history of GI bleed this also complicates management. (5) UTI (urinary tract infection): Code(s): N39.0 - Urinary tract infection, site not specified Status: Acute Assessment and Plan: Continue IV ceftriaxone and management per primary service. This likely contributed patient's weakness and increasing fall risk. (6) History of GI bleed: Code(s): Z87.19 - Personal history of other diseases of the digestive system Status: Acute Assessment and Plan: H&H stable. Continue to monitor CBC. Consider initiation of aspirin 81 mg daily if okay with GI. Continue pantoprazole 40 mg twice daily. (7) Hyperlipidemia associated with type 2 diabetes mellitus: Code(s): E11.69 - Type 2 diabetes mellitus with other specified complication; E78.5 - Hyperlipidemia, unspecified Status: Acute Assessment and Plan: Continue pravastatin 40 mg at bedtime. Subjective Date/time seen: Date of service: 03/31/23 15:37 Interval history: Follow-up for CHF, AFib, falls Patient feeling fine. Denies shortness of breath. States her edema is improved. She had good urine output overnight. Denies palpitation, chest pain. Review of Systems Review of Systems: Remainder of the review of systems is otherwise negative aside from that noted
[2023-03-31 16:42] LABS: Glucose Point of Care 184 mg/dl (65-105)
[2023-03-31] MEDS: POTASSIUM CHLORIDE 20 MEQ ER TABLET 40 MEQ PO (17:06)
[2023-03-31] MEDS: OLANZapine 5 MG TABLET PO (20:37)
[2023-03-31 21:10] LABS: Glucose Point of Care 176 mg/dl (65-105)
[2023-04-01] VITALS (7 sets, daily range): BP systolic 120–141; BP diastolic 67–75; PULSE 68–100; RESP 16–20; TEMP 36.4–36.5; O2SAT 92–95
[2023-04-01 06:59] LABS: Alanine Aminotransferase 11 U/L (6-35); Albumin Level 3.8 g/dL (3.5-5.1); Alkaline Phosphatase 92 U/L (38-126); Anion Gap 6 mmol/L (8-16); Aspartate Amino Transferase 16 U/L (14-36); Bilirubin,Total 0.7 mg/dL (0.2-1.3); Blood Urea Nitrogen 20 mg/dL (7-17); Calcium 8.2 mg/dL (8.4-10.2); Carbon Dioxide 39 mmol/L (22-30); Chloride 91 mmol/L (98-107); Estimated CRCL calculation 54 ml/min; Estimated Glomerular Filt Rate 60; Glucose 132 mg/dL (65-110); Potassium 3.5 mmol/L (3.4-5.0); Sodium 136 mmol/L (137-145)
[2023-04-01 07:34] LABS: Glucose Point of Care 126 mg/dl (65-105)
[2023-04-01] MEDS: POTASSIUM CHLORIDE 20 MEQ ER TABLET PO (09:18)
[2023-04-01] MEDS: CYANOCOBALAMIN 1,000 MCG TABLET 1000 MCG PO (09:18)
[2023-04-01] MEDS: PRAVASTATIN SODIUM 20 MG TABLET 40 MG PO (09:18)
[2023-04-01] MEDS: dilTIAZem HCL CD 240 MG CAP.24HR PO (09:18)
[2023-04-01] MEDS: PANTOPRAZOLE 40 MG TABLET PO ×2 (09:18→20:36)
[2023-04-01] MEDS: CALCIUM CARBONATE (OSCAL) 500 MG TABLET PO ×2 (09:18→17:22)
[2023-04-01] MEDS: ENOXAPARIN 40 MG/0.4 ML SYRINGE SUB-Q (09:19)
[2023-04-01] MEDS: FERROUS SULFATE 325 MG TABLET DR PO ×2 (09:19→17:22)
[2023-04-01] MEDS: rOPINIRole HCL 1 MG TABLET PO ×2 (09:19→17:22)
[2023-04-01] MEDS: MAGNESIUM OXIDE 400 MG TABLET PO (09:19)
[2023-04-01] MEDS: FUROSEMIDE INJ 40 MG/4 ML VIAL IV PUSH ×2 (09:19→20:35)
[2023-04-01] MEDS: TOLNAFTATE 1% POWDER 45 GM BTL 1 APPLIC TOPICAL ×2 (09:19→20:35)
[2023-04-01 11:32] LABS: Glucose Point of Care 147 mg/dl (65-105)
--- NOTE | 2023-04-01 11:42 | PM.PNCARD ---
Progress Note: A&P Assessment and Plan (1) CHF (congestive heart failure): Qualifiers: Heart failure chronicity: acute on chronic Heart failure type: diastolic Qualified Code(s): I50.33 - Acute on chronic diastolic (congestive) heart failure Code(s): I50.9 - Heart failure, unspecified Status: Acute Assessment and Plan: Mild acute on chronic heart failure with preserved ejection fraction EF 65-70% by echo 01/2023. Severe pulmonary hypertension noted by echocardiogram. Continue IV Lasix 40 mg IV q.12 hours today. If she has a good response overnight change to oral regimen Bumex 1 mg daily. Accurate input and output, daily weight critically important. Check BMP and electrolytes in a.m.. Monitor BP. Replete potassium as needed to keep potassium around 4.0. (2) Persistent atrial fibrillation: Code(s): I48.19 - Other persistent atrial fibrillation Status: Acute Assessment and Plan: Heart rate controlled, asymptomatic on diltiazem 240 mg daily. Continue for now. Patient is not an anticoagulation candidate due to frequent falls, history of GI bleed to catastrophic potential bleeding. Would recommend at least aspirin daily, however, given recent GI bleed with ongoing anemia on b.i.d. pantoprazole will hold off for now. (3) Recurrent falls: Code(s): R29.6 - Repeated falls Status: Acute Assessment and Plan: Patient high risk for falls and subsequent injury. PT OT for strengthening conditioning. Patient attributes this to diabetic neuropathy and generalized weakness due to sedentary lifestyle. No symptoms suggestive of orthostatic hypotension or syncope. (4) Contraindication to anticoagulation therapy: Code(s): Z53.09 - Procedure and treatment not carried out because of other contraindication Status: Acute Assessment and Plan: Patient has a history of multiple recurrent falls with injuries including this admission with facial injury but without loss of consciousness. Patient also has a history of GI bleed in ongoing anemia. Patient is not a candidate for anticoagulation as risk clearly exceeds benefit. (5) UTI (urinary tract infection): Code(s): N39.0 - Urinary tract infection, site not specified Status: Acute Assessment and Plan: Continue IV ceftriaxone and management per primary service. This likely contributed patient's weakness and increasing fall risk. (6) History of GI bleed: Code(s): Z87.19 - Personal history of other diseases of the digestive system Status: Acute Assessment and Plan: H&H stable. Continue to monitor CBC. Consider initiation of aspirin 81 mg daily if okay with GI. Continue pantoprazole 40 mg twice daily. (7) Hyperlipidemia associated with type 2 diabetes mellitus: Code(s): E11.69 - Type 2 diabetes mellitus with other specified complication; E78.5 - Hyperlipidemia, unspecified Status: Acute Assessment and Plan: Continue pravastatin 40 mg at bedtime. Subjective Date/time seen: 04/01/23 11:42 Interval history: Follow-up for CHF, AFib, falls Patient feeling fine. Denies shortness of breath. States her edema is improved. She had good urine output overnight. Denies palpitation, chest pain. Review of Systems Review of Systems: Remainder of the review of systems is otherwise negative aside from that noted in the HPI. All systems reviewed & are unremarkable except as noted in HPI and below Constitutional: Constitutional: Reports as per HPI and Reports no additional constitutional complaints Eyes: Eyes: Reports as per HPI and Reports no additional eye complaints ENT: Reports system reviewed and no additional complaints, except as documented and Reports as per HPI Cardiovascular: Cardiovascular: Reports as per HPI and Reports no additional cardiovascular complaints Respiratory: Respiratory: Reports as per HPI and Reports no additional respiratory complain
--- NOTE | 2023-04-01 13:00 | PM.IMPN ---
Progress Note: A&P Assessment and Plan (1) UTI (urinary tract infection): Code(s): N39.0 - Urinary tract infection, site not specified Status: Acute Assessment and Plan: Urine culture and IV antibiotics, last dose of antibiotics tomorrow morning via IV (2) Fall: Code(s): W19.XXXA - Unspecified fall, initial encounter Status: Acute Assessment and Plan: Monitor closely, physical therapy to see patient. (3) Fractured nose: Code(s): S02.2XXA - Fracture of nasal bones, initial encounter for closed fracture Status: Acute Assessment and Plan: ENT consult and pain management. (4) Fracture of left hand: Code(s): S62.92XA - Unspecified fracture of left wrist and hand, initial encounter for closed fracture Status: Acute Assessment and Plan: outpatient consult for Dr. Carballo (5) Acute on chronic systolic heart failure: Code(s): I50.23 - Acute on chronic systolic (congestive) heart failure Status: Acute Assessment and Plan: Continue with IV diuresis and consult Cardiology. Monitor urine output (6) Hypertension: Code(s): I10 - Essential (primary) hypertension Status: Acute Assessment and Plan: Stable on current meds, continue current treatment. blood pressure reviewed on 04/01 (7) Chronic atrial fibrillation, unspecified: Code(s): I48.20 - Chronic atrial fibrillation, unspecified Status: Acute Assessment and Plan: Stable, continue current treatment. (8) Elevated blood sugar: Code(s): R73.9 - Hyperglycemia, unspecified Status: Acute Assessment and Plan: Diabetic diet, ACHS fingerstick glucose with sliding scale insulin Plan Last dose of antibiotic for UTI will be tomorrow morning, continue IV antibiotic until completed tomorrow. Will start physical therapy. Continue current treatment. Care coordination consult for rehab/group home placement. Time Spent With Patient Time with patient: 25 - 35 minutes Subjective Date/time seen: 04/01/23 13:01 Interval history: Follow-up for CHF, AFib, falls Patient feeling fine. Denies shortness of breath. States her edema is improved. She had good urine output overnight. Denies palpitation, chest pain. Review of Systems Review of Systems: All systems reviewed & are unremarkable except as noted in HPI and below Exam Narrative: GENERAL: Well-appearing, well-nourished, and in no acute distress. HEAD: Normocephalic, atraumatic. EYES: PERRL and EOMI. ENT: Mucous membranes moist. Fracture nose CHEST: Clear to auscultation.? No respiratory distress. HEART: Irregular regular rate and rhythm.? Normal peripheral pulses. ABDOMEN: Soft, nontender, nondistended. EXTREMITIES: Normal range of motion.? No edema. Left hand fracture and in a splint. Cap refill, motor sensation intact. SKIN: Warm, dry, no rash. NEURO: Alert and oriented x3. PSYCH: Normal mood and affect Objective Data Vital Signs Vital Signs: Vital Signs - 24 hr 03/31/23 14:00 03/31/23 17:35 03/31/23 16:00 Temperature 36.6 C Pulse Rate 72 97 Respiratory Rate 16 Blood Pressure 132/71 Pulse Oximetry 97 96 Oxygen Delivery Nasal Cannula Oxygen Flow Rate 1 Fraction of Inspired Oxygen 24 03/31/23 21:47 03/31/23 20:46 04/01/23 00:00 Temperature 36.7 C Pulse Rate 77 92 87 Respiratory Rate 18 Blood Pressure 125/56 L Pulse Oximetry 95 Oxygen Delivery Oxygen Flow Rate Fraction of Inspired Oxygen 04/01/23 04:00 04/01/23 05:52 04/01/23 08:16 Temperature 36.5 C Pulse Rate 100 68 Respiratory Rate 20 Blood Pressure 127/74 Pulse Oximetry 95 92 Oxygen Delivery Nasal Cannula Oxygen Flow Rate 1 Fraction of Inspired Oxygen 04/01/23 08:00 04/01/23 08:00 Temperature Pulse Rate 74 68 Respiratory Rate 20 Blood Pressure Pulse Oximetry 92 Oxygen Delivery Nasal Cannula Oxygen Flow Rate 1 Fraction of
[2023-04-01 16:49] LABS: Glucose Point of Care 150 mg/dl (65-105)
[2023-04-01] MEDS: OLANZapine 5 MG TABLET PO (20:35)
[2023-04-01 20:48] LABS: Glucose Point of Care 177 mg/dl (65-105)
--- NOTE | 2023-04-01 23:39 | PC.NURSE ---
patient answered all orientation questions when doing her assessment, she became more confused, and asked how she got here, and where her chair was at, she then stated you are ac I didn't call the police, and only called my daughter. Daughter said that this has happened before, that she once woke up in the middle of the night and called the police because she didn't know where she was.
--- NOTE | 2023-04-02 02:15 | PC.NURSE ---
patient still very confused,and getting aggitated. RN walked in room and patient had thrown both water cups on the floor, and water all over the ground. Patient began to unwrap her splint on left hand, RN tried to help fix it but patient refused any care at this time
--- NOTE | 2023-04-02 05:10 | PC.NURSE ---
patient has been awake all through the night, and very resistive of care, RN and tech have been in multiple times throughout the night to reorient patient and get them back into bed, patient stated multiple times that she was talking to family members at her bedside, meanwhile there have been no visitors through the night. She began hallucinating and seeing things around 2200, and it has been going on all throughout the night, she was very agitated to the point of she stated unwrapping her splint, RN attemted to re wrap multiple times but patient keep refusing and unwrapping the splint on her left arm, at 0500 patient allowed tech to groover and turner her light, and get her comfortable in bed.
[2023-04-02 06:00] VITALS: BP 129/62; PULSE 74; RESP 18; TEMP 35.5; O2SAT 95
[2023-04-02 06:35] LABS: Basophils Absolute Auto 0.1 K/mm3 (0.0-0.1); Basophils Percent Auto 1.2 % (0.2-1.2); Eosinophils Absolute Auto 0.6 K/mm3 (0-0.3); Eosinophils Percent Auto 8.6 % (0-4.4); Hematocrit 32.8 % (37.0-47.0); Hemoglobin 9.5 g/dL (12.0-15.0); Immature Granulocyte Absolute 0.03 K/mm3 (0.00-0.031); Immature Granulocyte Percent A 0.4 % (0-0.5); Lymphocytes Absolute Auto 0.95 K/mm3 (0.9-3.2); Mean Corpuscular Hemoglobin 26.8 pg (26-34); Mean Corpuscular Volume 92.4 fl (80-100); Mean Platelet Volume 10.4 fl (7.4-10.4); Monocytes Absolute Auto 0.8 K/mm3 (0.1-0.6); Monocytes Percent Auto 11.2 % (2.6-8.5); Neutrophils Absolute Auto 4.4 K/mm3 (1.3-6.7); Neutrophils Percent Auto 64.6 % (45.5-73.1); Platelet Count Result 200 k/mm3 (150-375); Red Blood Count 3.55 M/mm3 (4.2-5.4); Red Cell Distribution Width 17.2 % (11.5-14.5); White Blood Count 6.8 K/mm3 (4.5-10.0)
[2023-04-02 06:49] LABS: Alanine Aminotransferase 11 U/L (6-35); Albumin Level 3.6 g/dL (3.5-5.1); Alkaline Phosphatase 81 U/L (38-126); Aspartate Amino Transferase 17 U/L (14-36); Bilirubin,Total 0.6 mg/dL (0.2-1.3); Blood Urea Nitrogen 19 mg/dL (7-17); Calcium 8.7 mg/dL (8.4-10.2); Carbon Dioxide > 40 mmol/L (22-30); Chloride 91 mmol/L (98-107); Estimated CRCL calculation 49 ml/min; Estimated Glomerular Filt Rate 53; Glucose 125 mg/dL (65-110); Potassium 3.3 mmol/L (3.4-5.0); Sodium 136 mmol/L (137-145)
--- NOTE | 2023-04-02 07:10 | P.CDI_ITS ---
CDI Query Clarification Request Please clarify, conflicting diagnosis between hospitalist (Systolic Heart Failure) and Tip Stretcher (Diastolic heart failure). Patient receiving Lasix. Elevated BNP on 03/29/23 lab work. Pulmonary edema noted on the 03/29/23 chest xray. Documented history of CHF. Lasix listed as a home medication. Please specify type and acuity of heart failure if known. * Acute * Chronic * Acute on Chronic * Unknown * Systolic * Diastolic * Combined Systolic and Diastolic * Unknown <Dora Urrutia RN - Last Filed: 04/02/23 07:23> Clarified Diagnosis Clarified Diagnosis: Defer to Cardiology assessment of acute on chronic diastolic heart failure <Jasen Ewing, PHARM SPEC - Last Filed: 04/02/23 08:35>
--- NOTE | 2023-04-02 07:10 | WPDCDIQUERY2 ---
CDI Query Clarification Request Please clarify, conflicting diagnosis between hospitalist (Systolic Heart Failure) and Funeral Service Practitioner/Embalmer (Diastolic heart failure). Patient receiving Lasix. Elevated BNP on 03/29/23 lab work. Pulmonary edema noted on the 03/29/23 chest xray. Documented history of CHF. Lasix listed as a home medication. Please specify type and acuity of heart failure if known. Acute Chronic Acute on Chronic Unknown Systolic Diastolic Combined Systolic and Diastolic Unknown <Dora Urrutia RN - Last Filed: 04/02/23 07:23> Clarified Diagnosis Clarified Diagnosis: Defer to Cardiology assessment of acute on chronic diastolic heart failure <Jasen Ewing, SYSTEMS ARCHITECT - Last Filed: 04/02/23 08:35>
[2023-04-02 07:14] LABS: Anisocytosis 1+ (NORMAL); Hypochromasia 1+ (NORMAL); Platelet Estimate Adequate (Adequate); Schistocytes None Seen (NORMAL)
[2023-04-02 08:00] VITALS: O2SAT 96
[2023-04-02 08:09] LABS: Glucose Point of Care 134 mg/dl (65-105)
[2023-04-02] MEDS: CYANOCOBALAMIN 1,000 MCG TABLET 1000 MCG PO (08:43)
[2023-04-02] MEDS: FUROSEMIDE INJ 40 MG/4 ML VIAL IV PUSH (08:43)
[2023-04-02] MEDS: PRAVASTATIN SODIUM 20 MG TABLET 40 MG PO (08:43)
[2023-04-02] MEDS: CALCIUM CARBONATE (OSCAL) 500 MG TABLET PO ×2 (08:43→17:21)
[2023-04-02] MEDS: MAGNESIUM OXIDE 400 MG TABLET PO (08:43)
[2023-04-02] MEDS: PANTOPRAZOLE 40 MG TABLET PO ×2 (08:43→20:45)
[2023-04-02] MEDS: BUMETANIDE 1 MG TABLET PO ×2 (08:44→17:21)
[2023-04-02] MEDS: FERROUS SULFATE 325 MG TABLET DR PO ×2 (08:44→17:21)
[2023-04-02] MEDS: ENOXAPARIN 40 MG/0.4 ML SYRINGE SUB-Q (08:44)
[2023-04-02] MEDS: TOLNAFTATE 1% POWDER 45 GM BTL 1 APPLIC TOPICAL ×2 (08:44→20:46)
[2023-04-02] MEDS: POTASSIUM CHLORIDE 20 MEQ ER TABLET PO (08:44)
[2023-04-02] MEDS: rOPINIRole HCL 1 MG TABLET PO ×2 (08:44→17:21)
[2023-04-02] MEDS: dilTIAZem HCL CD 240 MG CAP.24HR PO (08:44)
[2023-04-02] MEDS: ERGOCALCIFEROL 50,000 UNITS CAPSULE 50000 UNITS PO (08:48)
[2023-04-02 11:58] LABS: Glucose Point of Care 153 mg/dl (65-105)
[2023-04-02 14:00] VITALS: BP 118/61; PULSE 88; RESP 16; TEMP 37.3; O2SAT 94
--- NOTE | 2023-04-02 14:01 | PM.PNCARD ---
Progress Note: A&P Assessment and Plan (1) CHF (congestive heart failure): Qualifiers: Heart failure chronicity: acute on chronic Heart failure type: diastolic Qualified Code(s): I50.33 - Acute on chronic diastolic (congestive) heart failure Code(s): I50.9 - Heart failure, unspecified Status: Acute Assessment and Plan: Mild acute on chronic heart failure with preserved ejection fraction EF 65-70% by echo 01/2023. Severe pulmonary hypertension noted by echocardiogram. Shifted back to p.o. bumex today. Accurate input and output, daily weight critically important. Check BMP in a.m. Monitor BP. Replete potassium as needed to keep potassium around 4.0. (2) Persistent atrial fibrillation: Code(s): I48.19 - Other persistent atrial fibrillation Status: Acute Assessment and Plan: Heart rate controlled, asymptomatic on diltiazem 240 mg daily. Continue for now. Patient is not an anticoagulation candidate due to frequent falls, history of GI bleed to catastrophic potential bleeding. Would recommend at least aspirin daily, however, given recent GI bleed with ongoing anemia on b.i.d. pantoprazole will hold off for now. (3) Recurrent falls: Code(s): R29.6 - Repeated falls Status: Acute Assessment and Plan: Patient high risk for falls and subsequent injury. PT OT for strengthening conditioning. Patient attributes this to diabetic neuropathy and generalized weakness due to sedentary lifestyle. No symptoms suggestive of orthostatic hypotension or syncope. (4) Contraindication to anticoagulation therapy: Code(s): Z53.09 - Procedure and treatment not carried out because of other contraindication Status: Acute Assessment and Plan: Patient has a history of multiple recurrent falls with injuries including this admission with facial injury but without loss of consciousness. Patient also has a history of GI bleed in ongoing anemia. Patient is not a candidate for anticoagulation as risk clearly exceeds benefit. (5) UTI (urinary tract infection): Code(s): N39.0 - Urinary tract infection, site not specified Status: Acute Assessment and Plan: Continue IV ceftriaxone and management per primary service. This likely contributed patient's weakness and increasing fall risk. (6) History of GI bleed: Code(s): Z87.19 - Personal history of other diseases of the digestive system Status: Acute Assessment and Plan: H&H stable. Continue to monitor CBC. Consider initiation of aspirin 81 mg daily if okay with GI. Continue pantoprazole 40 mg twice daily. (7) Hyperlipidemia associated with type 2 diabetes mellitus: Code(s): E11.69 - Type 2 diabetes mellitus with other specified complication; E78.5 - Hyperlipidemia, unspecified Status: Acute Assessment and Plan: Continue pravastatin 40 mg at bedtime. Subjective Date/time seen: 04/02/23 14:01 Interval history: Follow-up for CHF, AFib, falls Patient feeling fine. Denies shortness of breath. States her edema is improved. She had good urine output overnight. Denies palpitation, chest pain. Date of service 04/02/2023: Confused today. Seeing family members in the room who aren't there. Breathing is better, she is now on room air. Review of Systems Review of Systems: Remainder of the review of systems is otherwise negative aside from that noted in the HPI. All systems reviewed & are unremarkable except as noted in HPI and below Constitutional: Constitutional: Reports as per HPI and Reports no additional constitutional complaints Eyes: Eyes: Reports as per HPI and Reports no additional eye complaints ENT: Reports system reviewed and no additional complaints, except as documented and Reports as per HPI Cardiovascular: Cardiovascular: Reports as per HPI and Reports no additional cardiovascular complaints Respiratory: Respiratory: Reports as per HPI and Rep
--- NOTE | 2023-04-02 14:37 | PM.IMPN ---
Progress Note: A&P Assessment and Plan (1) UTI (urinary tract infection): Code(s): N39.0 - Urinary tract infection, site not specified Status: Acute Assessment and Plan: Urine culture and IV antibiotics, last dose of antibiotics this morning via IV (2) Fall: Code(s): W19.XXXA - Unspecified fall, initial encounter Status: Acute Assessment and Plan: Monitor closely, physical therapy to see patient. (3) Fractured nose: Code(s): S02.2XXA - Fracture of nasal bones, initial encounter for closed fracture Status: Acute Assessment and Plan: ENT consult and pain management. (4) Fracture of left hand: Code(s): S62.92XA - Unspecified fracture of left wrist and hand, initial encounter for closed fracture Status: Acute Assessment and Plan: outpatient consult for Dr. Carballo (5) Acute on chronic systolic heart failure: Code(s): I50.23 - Acute on chronic systolic (congestive) heart failure Status: Acute Assessment and Plan: Continue with IV diuresis and consult Cardiology. Monitor urine output (6) Hypertension: Code(s): I10 - Essential (primary) hypertension Status: Acute Assessment and Plan: Stable on current meds, continue current treatment. blood pressure reviewed on 04/02 (7) Chronic atrial fibrillation, unspecified: Code(s): I48.20 - Chronic atrial fibrillation, unspecified Status: Acute Assessment and Plan: Stable, continue current treatment. (8) Elevated blood sugar: Code(s): R73.9 - Hyperglycemia, unspecified Status: Acute Assessment and Plan: Diabetic diet, ACHS fingerstick glucose with sliding scale insulin Plan Last dose of antibiotic for UTI will be this morning Patient can go to group home tomorrow She is being moved to private room possibly might need a sitter due to delirium Time Spent With Patient Time with patient: 25 - 35 minutes Subjective Date/time seen: 04/02/23 14:37 Interval history: Patient had episode of agitation last night appeared to be hallucinating talked about family that was present but just staring at her. It is likely that patient is experiencing some level of delirium. They are planning to move patient into a private room later today. She denies any pain or acute needs at this time. Review of Systems Review of Systems: All systems reviewed & are unremarkable except as noted in HPI and below Exam Narrative: GENERAL: Well-appearing, well-nourished, and in no acute distress. HEAD: Normocephalic, atraumatic. EYES: PERRL and EOMI. ENT: Mucous membranes moist. Fracture nose CHEST: Clear to auscultation.? No respiratory distress. HEART: Irregular regular rate and rhythm.? Normal peripheral pulses. ABDOMEN: Soft, nontender, nondistended. EXTREMITIES: Normal range of motion.? No edema. Left hand fracture and in a splint. Cap refill, motor sensation intact. SKIN: Warm, dry, no rash. NEURO: Confused, moves all extremities well PSYCH: patient experiencing delirium Objective Data Vital Signs Vital Signs: Vital Signs - 24 hr 04/01/23 22:00 04/02/23 06:00 04/02/23 08:00 Temperature 36.4 C 35.5 C L Pulse Rate 87 74 Respiratory Rate 18 18 Blood Pressure 141/67 H 129/62 Pulse Oximetry 94 95 96 Oxygen Delivery Nasal Cannula Oxygen Flow Rate 2 Fraction of Inspired Oxygen 24 Intake/Output Intake/Output: Intake & Output 03/30/23 03/31/23 04/01/23 04/02/23 23:59 23:59 23:59 23:59 Intake Total 762 1314 710 440 Output Total 4000 1600 2150 1250 [facility] [phone] Meds/Results Medications: Active Medications Generic Name Dose Route Start Last Admin Trade Name Freq PRN Reason Stop Dose Admin Acetaminophen 650 mg 03/29/23 18:20 Acetaminophen 325 Mg Tablet PO Q4H PRN Mild Pain (1-3) Or Fever Bumetanide 1 mg 04/02/23 09:00 04/02/23 08:44 Bumetanide 1 Mg Tablet PO 1 mg
--- NOTE | 2023-04-02 15:09 | PM.IMPN ---
Progress Note: A&P Assessment and Plan (1) UTI (urinary tract infection): Code(s): N39.0 - Urinary tract infection, site not specified Status: Acute Assessment and Plan: Urine culture and IV antibiotics, last dose of antibiotics this morning via IV (2) Fall: Code(s): W19.XXXA - Unspecified fall, initial encounter Status: Acute Assessment and Plan: Monitor closely, physical therapy to see patient. (3) Fractured nose: Code(s): S02.2XXA - Fracture of nasal bones, initial encounter for closed fracture Status: Acute Assessment and Plan: ENT consult and pain management. (4) Fracture of left hand: Code(s): S62.92XA - Unspecified fracture of left wrist and hand, initial encounter for closed fracture Status: Acute Assessment and Plan: outpatient consult for Dr. Carballo (5) Hypertension: Code(s): I10 - Essential (primary) hypertension Status: Acute Assessment and Plan: Stable on current meds, continue current treatment. blood pressure reviewed on 04/02 (6) Chronic atrial fibrillation, unspecified: Code(s): I48.20 - Chronic atrial fibrillation, unspecified Status: Acute Assessment and Plan: Stable, continue current treatment. (7) Elevated blood sugar: Code(s): R73.9 - Hyperglycemia, unspecified Status: Acute Assessment and Plan: Diabetic diet, ACHS fingerstick glucose with sliding scale insulin (8) CHF (congestive heart failure): Qualifiers: Heart failure chronicity: acute on chronic Heart failure type: diastolic Qualified Code(s): I50.33 - Acute on chronic diastolic (congestive) heart failure Code(s): I50.9 - Heart failure, unspecified Status: Acute Assessment and Plan: Acute on chronic diastolic heart failure. Continue oxygen 2 liters/minute. Continue with IV diuresis and consult Cardiology.? Monitor urine output (9) Delirium: Code(s): R41.0 - Disorientation, unspecified Status: Acute Assessment and Plan: Will add Seroquel at bedtime. Plan Last dose of antibiotic for UTI will be this morning Patient can go to snf tomorrow She is being moved to private room possibly might need a sitter due to delirium Time Spent With Patient Time with patient: 25 - 35 minutes Subjective Date/time seen: 04/02/23 08:00 Interval history: Patient had episode of agitation last night appeared to be hallucinating talked about family that was present but just staring at her. It is likely that patient is experiencing some level of delirium. They are planning to move patient into a private room later today. She denies any pain or acute needs at this time. Review of Systems Review of Systems: All systems reviewed & are unremarkable except as noted in HPI and below Exam Narrative: GENERAL: Well-appearing, well-nourished, and in no acute distress. HEAD: Normocephalic, atraumatic. EYES: PERRL and EOMI. ENT: Mucous membranes moist. Fracture nose CHEST: Clear to auscultation.? No respiratory distress. HEART: Irregular regular rate and rhythm.? Normal peripheral pulses. ABDOMEN: Soft, nontender, nondistended. EXTREMITIES: Normal range of motion.? No edema. Left hand fracture and in a splint. Cap refill, motor sensation intact. SKIN: Warm, dry, no rash. NEURO: Confused, moves all extremities well PSYCH: patient experiencing delirium Objective Data Vital Signs Vital Signs: Vital Signs - 24 hr 04/01/23 22:00 04/02/23 06:00 04/02/23 08:00 Temperature 36.4 C 35.5 C L Pulse Rate 87 74 Respiratory Rate 18 18 Blood Pressure 141/67 H 129/62 Pulse Oximetry 94 95 96 Oxygen Delivery Nasal Cannula Oxygen Flow Rate 2 Fraction of Inspired Oxygen 24 Intake/Output Intake/Output: Intake & Output 03/30/23 03/31/23 04/01/23 04/02/23 23:59 23:59 23:59 23:59 Intake Total 762 1314 710 440 Output Total 4000 1600 2150 1250 Neptali
[2023-04-02 16:44] LABS: Glucose Point of Care 188 mg/dl (65-105)
[2023-04-02] MEDS: QUEtiapine FUMARATE 25 MG TABLET 50 MG PO (20:43)
[2023-04-02] MEDS: OLANZapine 5 MG TABLET PO (20:44)
[2023-04-02 20:53] LABS: Glucose Point of Care 134 mg/dl (65-105)
[2023-04-02 22:00] VITALS: BP 160/75; PULSE 89; RESP 20; TEMP 35.9; O2SAT 92
--- NOTE | 2023-04-02 22:59 | PC.NURSE ---
patient became aggressive toward [employer], RN and other staff came in to deescalate situation, patient was talking to people that were not present, got patient up to chair and calmed her down, patient was also refusing care
[2023-04-02 23:12] VITALS: O2SAT 92
[2023-04-03 06:00] VITALS: BP 140/60; PULSE 85; RESP 20; TEMP 35.9; O2SAT 93
[2023-04-03 07:08] VITALS: O2SAT 85
[2023-04-03 07:16] VITALS: O2SAT 93
[2023-04-03 07:40] LABS: Basophils Absolute Auto 0.1 K/mm3 (0.0-0.1); Basophils Percent Auto 1.4 % (0.2-1.2); Eosinophils Absolute Auto 0.5 K/mm3 (0-0.3); Eosinophils Percent Auto 6.1 % (0-4.4); Hematocrit 36.2 % (37.0-47.0); Immature Granulocyte Absolute 0.05 K/mm3 (0.00-0.031); Immature Granulocyte Percent A 0.6 % (0-0.5); Lymphocytes Percent Auto 12.9 % (18.3-44.2); Mean Corpuscular HGB Conc 27.6 g/dl (32-36); Mean Corpuscular Volume 97.6 fl (80-100); Mean Platelet Volume 10.8 fl (7.4-10.4); Monocytes Percent Auto 12.3 % (2.6-8.5); Neutrophils Absolute Auto 5.2 K/mm3 (1.3-6.7); Neutrophils Percent Auto 66.7 % (45.5-73.1); Platelet Count Result 212 k/mm3 (150-375); Red Blood Count 3.71 M/mm3 (4.2-5.4); Red Cell Distribution Width 17.3 % (11.5-14.5); White Blood Count 7.7 K/mm3 (4.5-10.0)
[2023-04-03 07:50] LABS: Glucose Point of Care 155 mg/dl (65-105)
[2023-04-03 08:00] VITALS: O2SAT 93
[2023-04-03] MEDS: CYANOCOBALAMIN 1,000 MCG TABLET 1000 MCG PO (08:51)
[2023-04-03] MEDS: BUMETANIDE 1 MG TABLET PO (08:51)
[2023-04-03] MEDS: CALCIUM CARBONATE (OSCAL) 500 MG TABLET PO (08:51)
[2023-04-03] MEDS: MAGNESIUM OXIDE 400 MG TABLET PO (08:51)
[2023-04-03] MEDS: POTASSIUM CHLORIDE 20 MEQ ER TABLET PO (08:51)
[2023-04-03] MEDS: PANTOPRAZOLE 40 MG TABLET PO (08:51)
[2023-04-03] MEDS: dilTIAZem HCL CD 240 MG CAP.24HR PO (08:51)
[2023-04-03] MEDS: FERROUS SULFATE 325 MG TABLET DR PO (08:51)
[2023-04-03] MEDS: rOPINIRole HCL 1 MG TABLET PO (08:51)
[2023-04-03] MEDS: PRAVASTATIN SODIUM 20 MG TABLET 40 MG PO (08:52)
[2023-04-03] MEDS: ENOXAPARIN 40 MG/0.4 ML SYRINGE SUB-Q (08:54)
[2023-04-03] MEDS: TOLNAFTATE 1% POWDER 45 GM BTL 1 APPLIC TOPICAL (08:54)
--- NOTE | 2023-04-03 08:58 | PM.PNCARD ---
Progress Note: A&P Assessment and Plan (1) CHF (congestive heart failure): Qualifiers: Heart failure chronicity: acute on chronic Heart failure type: diastolic Qualified Code(s): I50.33 - Acute on chronic diastolic (congestive) heart failure Code(s): I50.9 - Heart failure, unspecified Status: Acute Assessment and Plan: Mild acute on chronic heart failure with preserved ejection fraction EF 65-70% by echo 01/2023. Severe pulmonary hypertension noted by echocardiogram. Improved with diuresis. She is back on p.o. bumex at this point. -Continue accurate input and output -daily weights. -CHF counseling. -Check BMP in a.m. -Monitor BP. -K+ 3.2 this morning. Will give an additional 40 mEq KCL x 1 now. Replete potassium as needed to keep potassium around 4.0. Cardiology will sign off please call with questions. (2) Persistent atrial fibrillation: Code(s): I48.19 - Other persistent atrial fibrillation Status: Acute Assessment and Plan: Heart rate controlled, asymptomatic on diltiazem 240 mg daily. Continue for now. Patient is not an anticoagulation candidate due to frequent falls, history of GI bleed to catastrophic potential bleeding. Would recommend at least aspirin daily, however, given recent GI bleed with ongoing anemia on b.i.d. pantoprazole will hold off for now. (3) Recurrent falls: Code(s): R29.6 - Repeated falls Status: Acute Assessment and Plan: Patient high risk for falls and subsequent injury. PT OT for strengthening conditioning. Patient attributes this to diabetic neuropathy and generalized weakness due to sedentary lifestyle. No symptoms suggestive of orthostatic hypotension or syncope. (4) Contraindication to anticoagulation therapy: Code(s): Z53.09 - Procedure and treatment not carried out because of other contraindication Status: Acute Assessment and Plan: Patient has a history of multiple recurrent falls with injuries including this admission with facial injury but without loss of consciousness. Patient also has a history of GI bleed in ongoing anemia. Patient is not a candidate for anticoagulation as risk clearly exceeds benefit. (5) UTI (urinary tract infection): Code(s): N39.0 - Urinary tract infection, site not specified Status: Acute Assessment and Plan: Continue IV ceftriaxone and management per primary service. This likely contributed patient's weakness and increasing fall risk. (6) History of GI bleed: Code(s): Z87.19 - Personal history of other diseases of the digestive system Status: Acute Assessment and Plan: H&H stable. Continue to monitor CBC. Consider initiation of aspirin 81 mg daily if okay with GI. Continue pantoprazole 40 mg twice daily. (7) Hyperlipidemia associated with type 2 diabetes mellitus: Code(s): E11.69 - Type 2 diabetes mellitus with other specified complication; E78.5 - Hyperlipidemia, unspecified Status: Acute Assessment and Plan: Continue pravastatin 40 mg at bedtime. Subjective Date/time seen: 04/03/23 08:58 Interval history: Follow-up for CHF, AFib, falls Patient feeling fine. Denies shortness of breath. States her edema is improved. She had good urine output overnight. Denies palpitation, chest pain. Date of service 04/02/2023: Confused today. Seeing family members in the room who aren't there. Breathing is better, she is now on room air. Date of service 04/03/2023: Received seroquel last night as she was having delirium thought to be secondary to not sleeping for 2 days prior. She is very drowsy this morning. Exam Const: General: comfortable, no acute distress and confusion; No alert Orientation/consciousness: oriented to place, No patient oriented x3 and confusion HENMT: Head: normal to inspection Eyes: General: appearance normal, both eyes and all related structures Pupils: Equal, round and
--- NOTE | 2023-04-03 09:02 | PM.DS ---
DS: Admitting Diagnosis Discharge Date 04/03/2023 Admitting Diagnosis Fall, fracture nose, fracture of left hand, acute on chronic heart failure, UTI, hypertension, chronic atrial fibrillation, elevated blood sugar DS: Discharge Diagnosis Discharge Diagnosis (1) UTI (urinary tract infection): Code(s): N39.0 - Urinary tract infection, site not specified Status: Acute (2) Fall: Code(s): W19.XXXA - Unspecified fall, initial encounter Status: Acute (3) Fractured nose: Code(s): S02.2XXA - Fracture of nasal bones, initial encounter for closed fracture Status: Acute (4) Fracture of left hand: Code(s): S62.92XA - Unspecified fracture of left wrist and hand, initial encounter for closed fracture Status: Acute (5) Hypertension: Code(s): I10 - Essential (primary) hypertension Status: Acute (6) Chronic atrial fibrillation, unspecified: Code(s): I48.20 - Chronic atrial fibrillation, unspecified Status: Acute (7) Elevated blood sugar: Code(s): R73.9 - Hyperglycemia, unspecified Status: Acute (8) CHF (congestive heart failure): Qualifiers: Heart failure chronicity: acute on chronic Heart failure type: diastolic Qualified Code(s): I50.33 - Acute on chronic diastolic (congestive) heart failure Code(s): I50.9 - Heart failure, unspecified Status: Acute (9) Delirium: Code(s): R41.0 - Disorientation, unspecified Status: Acute (10) Small vessel disease, cerebrovascular: Code(s): I67.9 - Cerebrovascular disease, unspecified Status: Chronic DS: Summary Hospital Course Reason for hospitalization: This is a 77-year-old admitted to the hospital after a fall in which she sustained nasal fractures and a left hand fracture. Patient also found to be in congestive heart failure Hospital Course: Patient had previously been at [facility] for rehabilitation and had been discharged home rehabilitation days. Patient was home a day or when she fell wheelchair. She does not ambulate on her own and has not 10 years. Patient sustained nasal fracture. Was splinted. ENT was consulted for nasal fractures and stated that patient could follow-up clinic. Additionally patient follow-up with Dr. Carballo in the clinic for her hand fracture. Discharge the hospital was complicated by onset delirium and obtaining safe discharge plan. She will go care home to [facility] as she can no longer live independently at home. Status at Discharge Cognitive/behavioral status at discharge: Awake confused Functional status at discharge: wheelchair bound Overall status at discharge: patient is not back to baseline Time Spent with Patient Time attestation: Total time spent providing and/or coordinating discharge services:40 Time spent: Greater than 30 minutes Exam Narrative: GENERAL: Well-appearing, well-nourished, and in no acute distress. Confused HEAD: Normocephalic, atraumatic. EYES: PERRL and EOMI. ENT: Mucous membranes moist. Fracture nose CHEST: Clear to auscultation.? No respiratory distress. HEART: Irregular regular rate and rhythm.? Normal peripheral pulses. ABDOMEN: Soft, nontender, nondistended. EXTREMITIES: Normal range of motion.? No edema. Left hand fracture and in a splint. Cap refill, motor sensation intact. SKIN: Warm, dry, no rash. NEURO: Confused, moves all extremities well PSYCH: patient experiencing delirium DS: Data Data Completed and Pending Completed studies during hospitalization: Head CT, cervical spine CT, facial bone CT, chest x-ray, left hand x-ray and lumbar spine x-ray Labs on day of discharge: Labs from last 24 hours 04/03/23 04/03/23 04/02/23 07:42 07:06 20:48 WBC 7.7 RBC 3.71 L Hgb 10.0 L Hct 36.2 L MCV 97.6 D MCH 27.0 MCHC 27.6 L RDW 17.3 H Plt Count 212 MPV 10.8 H Immature Gran % (Auto) 0.6 H Neut % (Auto) 66.7 Lymph % (
[2023-04-03 09:15] LABS: Alanine Aminotransferase 13 U/L (6-35); Albumin Level 3.6 g/dL (3.5-5.1); Alkaline Phosphatase 78 U/L (38-126); Aspartate Amino Transferase 27 U/L (14-36); Bilirubin,Total 0.7 mg/dL (0.2-1.3); Blood Urea Nitrogen 18 mg/dL (7-17); Calcium 8.6 mg/dL (8.4-10.2); Carbon Dioxide > 40 mmol/L (22-30); Chloride 93 mmol/L (98-107); Estimated CRCL calculation 49 ml/min; Estimated Glomerular Filt Rate 53; Glucose 115 mg/dL (65-110); Potassium 3.2 mmol/L (3.4-5.0); Sodium 137 mmol/L (137-145)
--- NOTE | 2023-04-03 10:21 | PCOTNOTE ---
Attempted to see Patient at this time. Patient has a Patient sitter due to having increased confusion and had been combative. Per RN, Patient has been given medication to assist in calming her down for increased safety. Patient is not able to participate at this time. Will check back at a later time.
[2023-04-03] MEDS: POTASSIUM CHLORIDE 20 MEQ ER TABLET 40 MEQ PO (11:12)
[2023-04-03 11:33] LABS: Glucose Point of Care 151 mg/dl (65-105)
--- NOTE | 2023-04-03 13:15 | PCOTNOTE ---
Patient still unable to be seen for therapy services this P.M. Patient sleeping and having confusion, Patient will not tolerate having clothing/hospital gown on.
[2023-04-03 13:40] LABS: SARS-CoV-2 RNA PCR Negative (Negative)
[2023-04-03 14:00] VITALS: BP 156/62; PULSE 86; RESP 20; TEMP 36.9; O2SAT 96
--- NOTE | 2023-04-03 16:26 | PCPTNOTE ---
The patient treatment was not able to be completed today due to patient unable to participate. Will plan to continue treatment per plan of care.
== END 2023-04-03 16:30 | DRG 291 ==
LOC: ANHED 08:51 → ANH3MEDSUR 12:05
PROVIDERS: Internal Medicine; Admitting Provider Internal Medicine; Emergency Provider Emergency Medicine; PCP Family Medicine Adolescent Medicine; Visit Provider Nurse Practitioner
DX: I11.0 Hypertensive heart disease with heart failure (principal); I50.33 Acute on chronic diastolic (congestive) heart failure; F33.9 Major depressive disorder, recurrent, unspecified; I48.20 Chronic atrial fibrillation, unspecified; N39.0 Urinary tract infection, site not specified; I25.10 Atherosclerotic heart disease of native coronary artery without angina pectoris; I65.23 Occlusion and stenosis of bilateral carotid arteries; I27.20 Pulmonary hypertension, unspecified; S02.2XXA Fracture of nasal bones, initial encounter for closed fracture; S62.309A Unspecified fracture of unspecified metacarpal bone, initial encounter for closed fracture; J44.9 Chronic obstructive pulmonary disease, unspecified; D64.9 Anemia, unspecified; E87.6 Hypokalemia; E78.00 Pure hypercholesterolemia, unspecified; R29.6 Repeated falls; R44.1 Visual hallucinations; R45.1 Restlessness and agitation; R73.9 Hyperglycemia, unspecified; F41.1 Generalized anxiety disorder; Z20.822 Contact with and (suspected) exposure to COVID-19; Z96.643 Presence of artificial hip joint, bilateral; W05.0XXA Fall from non-moving wheelchair, initial encounter
CPT/HCPCS: 36415; 70450; 70486; 71045; 72100; 72125; 73130; 80053; 81001; 82948; 83880; 84484; 85025; 87077; 87086; 87088; 87186; 87635; 87637; 93005; 96375; 97110; 97161; 97165; 97530; 99285; A9270; G0378; J0696; J1650; J1815; J1940

== ENCOUNTER 2023-04-08 21:13 | Emergency (ER) | payer MEDICARE, BC, SELFPAY ==
--- NOTE | ~2023-04-08 | XR_ITS ---
EXAMINATION: XR chest 2V Exam Date/Time: 04/08/2023 21:34 CDT HISTORY: cp Comparison: 03/29/2023. RESULT: Lines, tubes, and devices: None. Lungs and pleura: Moderate diffuse reticular opacities. Indistinct vessels Linear scar/atelectasis i n the left midlung. Cardiomediastinal silhouette: Stable. Other: No acute osseous or upper abdominal finding. IMPRESSION: Moderate interstitial edema. Reviewed, dictated and finalized at location K.
--- NOTE | 2023-04-08 21:15 | ECG_ITS ---
Measurements Intervals [place] Rate: 89 P: [place]: 0 QRS: -55 QRSD: 110 T: 53 QT: 373 QTc: 455 Interpretive Statements ATRIAL FIBRILLATION LEFT ANTERIOR FASCICULAR BLOCK [QRS AXIS <= -45, QR IN I, RS IN II] INFERIOR MYOCARDIAL INFARCTION , PROBABLY OLD [40+ ms Q WAVE AND/OR ST/T ABNORMALITY IN II/aVF] COMPARED TO ECG 03/30/2023 07:11:57 NO SIGNIFICANT CHANGES Electronically Signed On 04-09-2023 12:16:27 CDT by Paula العراقي M.D.
[2023-04-08 21:18] VITALS: BP 103/52; PULSE 83; RESP 20; TEMP 37; O2SAT 99
[2023-04-08 21:35] VITALS: PULSE 86
[2023-04-08 22:05] LABS: Basophils Absolute Auto 0.1 K/mm3 (0.0-0.1); Basophils Percent Auto 1.4 % (0.2-1.2); Eosinophils Absolute Auto 0.5 K/mm3 (0-0.3); Eosinophils Percent Auto 5.4 % (0-4.4); Hematocrit 34.6 % (37.0-47.0); Hemoglobin 9.9 g/dL (12.0-15.0); Immature Granulocyte Absolute 0.04 K/mm3 (0.00-0.031); Immature Granulocyte Percent A 0.5 % (0-0.5); Lymphocytes Absolute Auto 1.06 K/mm3 (0.9-3.2); Lymphocytes Percent Auto 12.1 % (18.3-44.2); Mean Corpuscular HGB Conc 28.6 g/dl (32-36); Mean Corpuscular Hemoglobin 26.8 pg (26-34); Mean Corpuscular Volume 93.5 fl (80-100); Mean Platelet Volume 10.7 fl (7.4-10.4); Monocytes Absolute Auto 0.8 K/mm3 (0.1-0.6); Monocytes Percent Auto 9.2 % (2.6-8.5); Neutrophils Absolute Auto 6.3 K/mm3 (1.3-6.7); Neutrophils Percent Auto 71.4 % (45.5-73.1); Platelet Count Result 250 k/mm3 (150-375); Red Cell Distribution Width 17.1 % (11.5-14.5); White Blood Count 8.8 K/mm3 (4.5-10.0)
[2023-04-08 22:15] LABS: Prothrombin Time 14.2 Seconds (11.1-14.7)
[2023-04-08 22:16] LABS: Partial Thromboplastin Time 28.4 SECONDS (22.3-36.8)
[2023-04-08 22:17] LABS: Alanine Aminotransferase 16 U/L (6-35); Albumin Level 4.3 g/dL (3.5-5.1); Alkaline Phosphatase 75 U/L (38-126); Anion Gap 8 mmol/L (8-16); Aspartate Amino Transferase 25 U/L (14-36); Bilirubin,Total 0.6 mg/dL (0.2-1.3); Blood Urea Nitrogen 25 mg/dL (7-17); Calcium 9.2 mg/dL (8.4-10.2); Carbon Dioxide 31 mmol/L (22-30); Chloride 100 mmol/L (98-107); Estimated CRCL calculation 48 ml/min; Estimated Glomerular Filt Rate 53; Glucose 170 mg/dL (65-110); Lipase 122 U/L (23-300); Potassium 4.1 mmol/L (3.4-5.0); Sodium 139 mmol/L (137-145)
[2023-04-08 22:28] LABS: Platelet Estimate Adequate (Adequate); Troponin I < 0.012 ng/mL (0.000-0.034)
[2023-04-08 22:29] LABS: Hypochromasia 1+ (NORMAL); Schistocytes None Seen (NORMAL)
[2023-04-08 22:30] LABS: Anisocytosis 2+ (NORMAL)
--- NOTE | 2023-04-09 01:06 | ED.CHESTPAIN ---
HPI - Chest Pain General Chief Complaint: Chest Pain Stated Complaint: cp Time Seen by Provider: 04/08/23 23:08 History of Present Illness HPI narrative: Patient presents to the emergency department from home with concern her mid chest tingling and tightness. She had a heart attack last year and has residual episodes of chest discomfort. Her primary care physician told her that as long as she can belch and the discomfort goes away that she does not need to be evaluated. However earlier today the discomfort was persistent. She denies all other review of systems. She was resting when it occurred. Pain lasting for a couple hours. Related Data Home Medications Medication Instructions Recorded Confirmed pravastatin 40 mg tablet 40 mg PO QAM 01/19/23 03/29/23 Allergies Allergy/AdvReac Type Severity Reaction Status Date / Time prednisone Allergy Severe RASH Verified 03/29/23 18:02 Review of Systems Review of Systems: Review of systems negative except for what is documented in the HPI [facility] Past Medical History Medical History (Updated 04/09/23 @ 01:11 by Becky Walton MD) Atherosclerotic heart disease of [place] coronary artery without angina pectoris CHF (congestive heart failure) Chronic atrial fibrillation, unspecified Chronic obstructive pulmonary disease, unspecified Chronic systolic (congestive) heart failure Generalized anxiety disorder Hypertensive heart disease with heart failure Major depressive disorder, recurrent, mild Normal colonoscopy 2011 Occlusion and stenosis of bilateral carotid arteries Pure hypercholesterolemia, unspecified Tobacco dependence Surgical History Surgical History History of hysterectomy History of tonsillectomy Status post total hip replacement, bilateral right hip revision due to infection. Family History Family History Father Lung cancer Mother Emphysema of lung Social History Social History Social History: Surrogate medical decision maker: Ruben Owen, son. Code status: Full code. Smoking packs per day: 1 Smoking cigarettes per day: 20.0 Years smoked: 64 Smoking pack-years: 64.00 Smoking status: Current every day smoker Alcohol intake: never Substance use: never Substance use type: does not use Lack of Transportation: No Lack of Food: Never True Current Housing: Decline to Answer Concerned About Future Housing: No Difficulty Paying Gas/Electric Bills: No Difficulty Paying for Meds: No Currently Unemployed: No Education: High School Diploma/GED Difficulty w/ Childcare or Family Care: No Living arrangements: alone Occupation/Education: retired Spiritual care concerns: No Agree to blood products: Yes Exam Narrative: GENERAL: Well-appearing, well-nourished, and in no acute distress. HEAD: Normocephalic, atraumatic. EYES: PERRLA and EOMI. ENT: Nares clear, no rhinorrhea or epistaxis. Mucous membranes moist. NECK: Supple. CHEST: Clear to auscultation. No respiratory distress. HEART: Regular rate and rhythm. ABDOMEN: Soft, nontender, nondistended. EXTREMITIES: Normal range of motion. No edema. SKIN: Warm, dry, no rash. NEURO: No focal deficits. Alert and oriented x3. PSYCH: Normal mood and affect. Course Course Emergency Course: Patient in no distress. She has a history of atrial fibrillation. EKG shows A-fib with rate under 100. No signs of acute ischemia. Telemetry ordered due to chest pain to evaluate for dysrhythmias. Evaluated by myself. Rhythm irregular Rate 75 Vital Signs Vital signs: Vital Signs Temperature 37.0 C 04/08/23 21:18 Pulse Rate 83 04/08/23 21:18 Respiratory Rate 20 04/08/23 21:18 Blood Pressure 103/52 L 04/08/23 21:18 Pulse Oximetry 99 04/08/23 21:18 Oxygen Delivery Nasal Can
--- NOTE | 2023-04-09 03:07 | PC.NURSE ---
0130 oscillograph technician attempted to draw the pt's 3 hour troponin, pt refused and stated she wanted to leave AMA. Pt was encouraged to stay by this RN. Pt was explained the risks and possible consequences of leaving the ED. Pt signed AMA form. Spoke with pt's daughter Bernie and she stated she is not able to pick the pt up due to a foot injury and the pt's son cannot pick her up because he is in [place]. Ti CAMARA offered the pt a cab voucher and spoke with residential staff, residential states there is no way she can take a cab home because we wont be able to get her out of the cab.
[2023-04-09 03:28] VITALS: BP 139/89; PULSE 94; RESP 18; O2SAT 94
== END 2023-04-09 03:38 | disposition left against medical advice (07) ==
PROVIDERS: Emergency Provider Emergency Medicine; PCP Family Medicine Adolescent Medicine
DX: R07.9 Chest pain, unspecified (principal); I25.10 Atherosclerotic heart disease of native coronary artery without angina pectoris; I48.91 Unspecified atrial fibrillation; F17.210 Nicotine dependence, cigarettes, uncomplicated; I11.0 Hypertensive heart disease with heart failure; I50.9 Heart failure, unspecified; J44.9 Chronic obstructive pulmonary disease, unspecified; E78.5 Hyperlipidemia, unspecified; F32.A Depression, unspecified
CPT/HCPCS: 36415; 71046; 80053; 83690; 84484; 85025; 85610; 85730; 93005; 99284

== ENCOUNTER 2023-05-10 01:41 | Emergency (ER) | payer MEDICARE, BC, SELFPAY ==
[2023-05-10] VITALS (42 sets, daily range): BP systolic 72–142; BP diastolic 57–92; PULSE 86–109; RESP 13–26; TEMP 36.4; O2SAT 85–100
--- NOTE | ~2023-05-10 | XR_ITS ---
EXAMINATION: XR chest 2V DATE: 05/10/2023 02:48 INDICATION: Chest pain. TECHNIQUE: Frontal and lateral views of the chest were obtained. COMPARISON: Chest 2 views 04/08/2023 FINDINGS: There is a diffuse interstitial pattern, consistent with mild pulmonary edema. No pleural e ffusion or pneumothorax. Cardiomegaly is noted. IMPRESSION: 1. Mild pulmonary edema. 2. Cardiomegaly. Reviewed, dictated and finalized at location E.
--- NOTE | 2023-05-10 01:46 | ECG_ITS ---
Measurements Intervals [place] Rate: 92 P: [place]: 0 QRS: -19 QRSD: 100 T: 43 QT: 392 QTc: 485 Interpretive Statements ATRIAL FIBRILLATION INFERIOR INFARCT, AGE INDETERMINATE ANTEROSEPTAL INFARCT, AGE INDETERMINATE BASELINE ARTIFACT- I, II, III, AVR, AVL, V1-V2 ABNORMAL ECG COMPARED TO ECG 04/08/2023 21:20:20 NO SIGNIFICANT CHANGES Electronically Signed On 05-10-2023 7:52:09 CDT by Mathew Hammond D.O.
--- NOTE | 2023-05-10 01:51 | ED.CHESTPAIN ---
HPI - Chest Pain General Chief Complaint: Arrhythmia/Palpitations Stated Complaint: cp Time Seen by Provider: 05/10/23 01:48 History of Present Illness HPI narrative: patient is a 77-year-old female with history of CAD, CHF, COPD, DM, atrial fibrillation here from [place] with chest pain. Just prior to arrival patient was lying in bed her facility watching TV when she began having chest pain underneath her left breast. Is initially 10/10, sharp, nonradiating. It does seem to worsen with deep breaths. She denies associated cough. She does not use oxygen at home. She notes that she has some bilateral lower extremity swelling but it seems to have worsened recently, she is unsure of the time line of the worsening leg swelling. On EMS arrival patient was saturating 97%, she is placed on oxygen for comfort. She is provided aspirin in route. Patient denies any fever, chills, abdominal pain, nausea, vomiting. No urinary symptoms. Related Data Home Medications Medication Instructions Recorded Confirmed pravastatin 40 mg tablet 40 mg PO QAM 01/19/23 03/29/23 Allergies Allergy/AdvReac Type Severity Reaction Status Date / Time prednisone Allergy Severe RASH Verified 05/10/23 01:56 Review of Systems Review of Systems: All systems reviewed & are unremarkable except as noted in HPI and below PMFSH Past Medical History Medical History (Updated 05/10/23 @ 05:27 by Nan Zaman MD) Atherosclerotic heart disease of [place] coronary artery without angina pectoris CHF (congestive heart failure) Chronic atrial fibrillation, unspecified Chronic obstructive pulmonary disease, unspecified Chronic systolic (congestive) heart failure Generalized anxiety disorder Hypertensive heart disease with heart failure Major depressive disorder, recurrent, mild Normal colonoscopy 2011 Occlusion and stenosis of bilateral carotid arteries Pure hypercholesterolemia, unspecified Tobacco dependence Surgical History Surgical History History of hysterectomy History of tonsillectomy Status post total hip replacement, bilateral right hip revision due to infection. Family History Family History Father Lung cancer Mother Emphysema of lung Social History Social History Social History: Surrogate medical decision maker: Ruben Owen, son. Code status: Full code. Smoking packs per day: 1 Smoking cigarettes per day: 20.0 Years smoked: 64 Smoking pack-years: 64.00 Smoking status: Current every day smoker Alcohol intake: never Substance use: never Substance use type: does not use Lack of Transportation: No Lack of Food: Never True Current Housing: Decline to Answer Concerned About Future Housing: No Difficulty Paying Gas/Electric Bills: No Difficulty Paying for Meds: No Currently Unemployed: No Education: High School Diploma/GED Difficulty w/ Childcare or Family Care: No Living arrangements: alone Occupation/Education: retired Spiritual care concerns: No Agree to blood products: Yes Exam Narrative: GENERAL: Well-appearing, well-nourished, and in no acute distress. HEAD: Normocephalic, atraumatic. EYES: PERRLA and EOMI. ENT: Nares clear. Mucous membranes moist. NECK: Supple. CHEST: Bilateral wheezing. No respiratory distress. HEART: Regular rate and rhythm. Normal peripheral pulses. ABDOMEN: Soft, nontender, nondistended. EXTREMITIES: Normal range of motion. Bilateral non pitting lower extremity edema. SKIN: Warm, dry, no rash. NEURO: No focal deficits. Alert and oriented x3. PSYCH: Normal mood and affect. Course Course Emergency Course: Patient seen and evaluated on EMS arrival. Non toxic appearing, chest pain has improved to a 5/10 after aspirin by EMS. Will do cardiac workup, BNP, CXR, duoneb. Differentials i
[2023-05-10 02:12] LABS: Basophils Absolute Auto 0.1 K/mm3 (0.0-0.1); Basophils Percent Auto 1.3 % (0.2-1.2); Eosinophils Absolute Auto 0.2 K/mm3 (0-0.3); Eosinophils Percent Auto 2.4 % (0-4.4); Hematocrit 33.2 % (37.0-47.0); Hemoglobin 9.8 g/dL (12.0-15.0); Immature Granulocyte Absolute 0.03 K/mm3 (0.00-0.031); Immature Granulocyte Percent A 0.4 % (0-0.5); Lymphocytes Absolute Auto 1.18 K/mm3 (0.9-3.2); Lymphocytes Percent Auto 16.4 % (18.3-44.2); Mean Corpuscular HGB Conc 29.5 g/dl (32-36); Mean Corpuscular Hemoglobin 26.8 pg (26-34); Mean Platelet Volume 10.2 fl (7.4-10.4); Monocytes Absolute Auto 0.9 K/mm3 (0.1-0.6); Monocytes Percent Auto 11.8 % (2.6-8.5); Neutrophils Absolute Auto 4.9 K/mm3 (1.3-6.7); Neutrophils Percent Auto 67.7 % (45.5-73.1); Platelet Count Result 202 k/mm3 (150-375); Red Blood Count 3.65 M/mm3 (4.2-5.4); Red Cell Distribution Width 18.1 % (11.5-14.5); White Blood Count 7.2 K/mm3 (4.5-10.0)
[2023-05-10] MEDS: ALBUTEROL SULFATE NEB 2.5 MG/3 ML INH INHALATION (02:21)
[2023-05-10 02:22] LABS: Prothrombin Time 13.9 Seconds (11.1-14.7)
[2023-05-10] MEDS: IPRATROPIUM BR 0.02% INH SOLN 0.5 MG/2.5 ML VIAL INHALATION (02:22)
[2023-05-10 02:23] LABS: Partial Thromboplastin Time 28.7 SECONDS (22.3-36.8)
[2023-05-10 02:25] LABS: Alanine Aminotransferase 13 U/L (6-35); Albumin Level 4.2 g/dL (3.5-5.1); Alkaline Phosphatase 81 U/L (38-126); Anion Gap 7 mmol/L (8-16); Aspartate Amino Transferase 24 U/L (14-36); Bilirubin,Total 0.5 mg/dL (0.2-1.3); Blood Urea Nitrogen 40 mg/dL (7-17); Calcium 9.3 mg/dL (8.4-10.2); Carbon Dioxide 34 mmol/L (22-30); Chloride 98 mmol/L (98-107); Estimated CRCL calculation 34 ml/min; Estimated Glomerular Filt Rate 31; Glucose 119 mg/dL (65-110); Lipase 125 U/L (23-300); Potassium 3.5 mmol/L (3.4-5.0); Sodium 139 mmol/L (137-145)
[2023-05-10 02:40] LABS: NT Pro B Type Natriuretic Pept 1490 pg/mL (19.9-100); Troponin I < 0.012 ng/mL (0.000-0.034)
[2023-05-10] MEDS: NITROGLYCERIN SL 0.4 MG TABLET SUBLINGUAL (02:48)
[2023-05-10 02:51] LABS: Influenza A QL RT-PCR Negative (Negative); Influenza B QL RT-PCR Negative (Negative); RSV RNA, RT-PCR Negative (Negative); SARS-CoV-2 RNA PCR Negative (Negative)
[2023-05-10 03:00] LABS: Basophilic Stippling 1+ (NORMAL); Hypochromasia 2+ (NORMAL); Platelet Estimate Adequate (Adequate); Schistocytes None Seen (NORMAL); Stomatocytes 2+ (NORMAL)
[2023-05-10] MEDS: ONDANSETRON INJ 4 MG/2 ML VIAL IV PUSH (03:04)
[2023-05-10] MEDS: MORPHINE SULFATE (*CRX) 2 MG/ML INJ IV PUSH (03:04)
--- NOTE | 2023-05-10 03:09 | PC.NURSE ---
This RN attempted to call pt son, Ruben to inform son of pt being at the hospital per pt request. Ruben was unable to answer the phone at this time.
[2023-05-10] MEDS: AMOXICILLIN/CLAVULANATE K 875-125 MG TAB 1 TABLET PO (04:51)
[2023-05-10] MEDS: DOXYCYCLINE HYCLATE 100 MG TABLET PO (04:51)
[2023-05-10 05:14] LABS: Troponin I < 0.012 ng/mL (0.000-0.034)
[2023-05-10 07:49] LABS: Troponin I < 0.012 ng/mL (0.000-0.034)
--- NOTE | 2023-05-10 08:53 | PC.NURSE ---
Pt restless, found with gown off attempting to get out of bed. Pt voices impatience waiting for ambulance. RN reinforced vee transport goes by severity, it is scheduled for 0900
== END 2023-05-10 09:44 ==
PROVIDERS: Emergency Provider Student in an Organized Health Care Education/Training Program; PCP Family Medicine Adolescent Medicine
DX: J44.1 Chronic obstructive pulmonary disease with (acute) exacerbation (principal); N17.9 Acute kidney failure, unspecified; R60.0 Localized edema; R07.9 Chest pain, unspecified; Z20.822 Contact with and (suspected) exposure to COVID-19; I25.10 Atherosclerotic heart disease of native coronary artery without angina pectoris; I11.0 Hypertensive heart disease with heart failure; I48.20 Chronic atrial fibrillation, unspecified; I50.22 Chronic systolic (congestive) heart failure; I65.23 Occlusion and stenosis of bilateral carotid arteries; E11.9 Type 2 diabetes mellitus without complications; E78.00 Pure hypercholesterolemia, unspecified; F17.210 Nicotine dependence, cigarettes, uncomplicated; Z96.643 Presence of artificial hip joint, bilateral; Z90.710 Acquired absence of both cervix and uterus; Z79.84 Long term (current) use of oral hypoglycemic drugs
CPT/HCPCS: 36415; 71046; 80053; 83690; 83880; 84484; 85025; 85610; 85730; 87637; 93005; 94640; 96374; 96375; 99284; A9270; J2270; J2405

== ENCOUNTER 2023-07-07 19:30 | Inpatient (IN) | payer MEDICARE, BC, SELFPAY ==
[2023-07-07] VITALS (20 sets, daily range): BP systolic 104–119; BP diastolic 51–67; PULSE 69–82; RESP 12–21; TEMP 36.6; O2SAT 90–98
--- NOTE | ~2023-07-07 | XR_ITS ---
MODIFIED ESOPHAGRAM HISTORY: Dysphagia. TECHNIQUE: Modified barium esophagram was performed on 07/11/2023. I administered fluoroscopy and perfo rmed the exam with speech pathologist. Patient was seated for lateral fluoroscopic imaging for inges tion of thin liquids, pudding, solids and quantified amounts, followed by thin liquids in uncontrolle d amounts. This was recorded on tape. A single fluoroscopic spot image was also recorded. The DAP for this procedure was 1.549 Gycm2. The amount of fluoroscopy time used during this procedure was 2.0 mi nutes. FINDINGS: Oral stage: Adequate function. Pharyngeal stage: Reduced laryngeal elevation and tongue base retraction. There is laryngeal penetrat ion concerning for potential for subsequent aspiration. Cervical/esophageal stage: Adequate function. Prominent atherosclerotic plaques at the bilateral bowie tid bulbs. IMPRESSION: Pharyngeal dysphagia with laryngeal penetration with potential for subsequent aspiration. Please correlate with speech pathologist findings and specific feeding recommendations. Reviewed, dictated and finalized at location A. DER LABORER IMPRESSION: Pharyngeal dysphagia with laryngeal penetration with potential for subsequent aspiration. Please correlate with speech pathologist findings and s pecific feeding recommendations.
--- NOTE | ~2023-07-07 | XR_ITS ---
Portable chest x-ray Comparison: 07/09/2023 Clinical History: Labored breathing Findings: There is increasing haziness at the right lung base, and minimally at the left lung base. Cardiomediastinal silhouette is stable. There is advanced degenerative change of both shoulders, rig ht worse than left.. Impression: Increasing bibasilar haziness, right worse than left. Correlate for developing pulmonary edema versus infection. Reviewed, dictated and finalized at location . ANICAL EQUIPMENT TEST ENGINEER Impression: Increasing bibasilar haziness, right worse than left. Correlate for developing pulmonary edema versus infection.
--- NOTE | ~2023-07-07 | XR_ITS ---
EXAMINATION: XR chest 1V portable DATE: 07/09/2023 10:13 INDICATION: Shortness of breath TECHNIQUE: frontal view of the chest was obtained. COMPARISON: Chest radiograph dated 06/27/2023 FINDINGS: Mild elevation the left hemidiaphragm. Mild interstitial opacities with bronchial wall thickening reno fatou peribronchial cuffing in the bilateral lower lung zones. No pleural effusion or pneumothorax. Car diomegaly. Right rotator cuff arthropathy. IMPRESSION: 1. Cardiomegaly. 2. Bronchial wall thickening and mild increased interstitial pattern in the bilateral lower lung zone s most likely mild pulmonary edema although differential would include bronchitis and/or pneumonia in the appropriate clinical setting. Reviewed, dictated and finalized at location A. ING PILOT INSTRUCTOR IMPRESSION: 1. Cardiomegaly. 2. Bronchial wall thickening and mild increased interstitial pattern in the ravin ateral lower lung zones most likely mild pulmonary edema although differential would include bronchitis and/or pneumonia in the appropriate clinical setting.
--- NOTE | ~2023-07-07 | XR_ITS ---
XR chest 1V portable DATE: 07/12/2023 12:49 INDICATION: Shortness of breath TECHNIQUE: Portable AP chest on 07/12/2023 1243 hours COMPARISON: 07/11/2023 portable AP chest FINDINGS: There is cardiomegaly. Is pulmonary vascular congestion and redistribution. Mild prominence of the minor fissure may indicate subpleural edema. There is mild infiltrate and/or atelectasis in the right mid and both lower lung zones. Consider pulm onary edema, pneumonia, aspiration pneumonitis. There is aortic calcification and unfolding. There is minimal if any pleural effusion. Diffuse osteopenia. Prominent glenohumeral osteoarthritis as well as rotator cuff atrophy is noted bi laterally. IMPRESSION: Congestive heart failure Right mid and bilateral lower lung infiltrate and/or atelectasis; consider pulmonary edema, pneumonia , aspiration pneumonitis Reviewed, dictated and finalized at location B. GER CAFE IMPRESSION: Congestive heart failure Right mid and bilateral lower lung infiltrate and/or atelectasis; consider pulm onary edema, pneumonia, aspiration pneumonitis
--- NOTE | ~2023-07-07 | XR_ITS ---
EXAMINATION: XR chest 2V Exam Date/Time: 07/07/2023 19:58 MILITARY EXCHANGE WIRELESS MANAGER HISTORY: CP LEFT LOWER RIB AREA, AFIB Comparison: 05/10/2023. RESULT: Lines, tubes, and devices: None. Lungs and pleura: Mild diffuse reticular opacities. Cardiomediastinal silhouette: Stable. Other: No acute osseous or upper abdominal finding. IMPRESSION: Mild interstitial edema versus chronic interstitial/senescent change. Reviewed, dictated and finalized at location K. TARY EXCHANGE WIRELESS MANAGER
--- NOTE | 2023-07-07 19:36 | ECG_ITS ---
Measurements Intervals [place] Rate: 76 P: DE: 0 QRS: -42 QRSD: 118 T: 14 QT: 426 QTc: 480 Interpretive Statements ATRIAL FIBRILLATION LEFT AXIS DEVIATION INTRAVENTRICULAR CONDUCTION DELAY ANTEROSEPTAL INFARCT, AGE INDETERMINATE CONSIDER INFERIOR INFARCT, AGE INDETERMINATE BASELINE ARTIFACT- I, II, III, AVR, AVL, AVF, V1-V4 ABNORMAL ECG COMPARED TO ECG 05/10/2023 01:48:01 LEFT-AXIS DEVIATION NOW PRESENT Electronically Signed On 07-08-2023 8:11:57 CLOTH BALER by Mathew Hammond D.O.
[2023-07-07 19:51] LABS: Basophils Absolute Auto 0.1 K/mm3 (0.0-0.1); Basophils Percent Auto 0.5 % (0.2-1.2); Eosinophils Percent Auto 0.1 % (0-4.4); Hematocrit 42.6 % (37.0-47.0); Immature Granulocyte Absolute 0.04 K/mm3 (0.00-0.031); Immature Granulocyte Percent A 0.4 % (0-0.5); Lymphocytes Absolute Auto 0.99 K/mm3 (0.9-3.2); Mean Corpuscular HGB Conc 32.9 g/dl (32-36); Mean Corpuscular Hemoglobin 27.7 pg (26-34); Mean Corpuscular Volume 84.2 fl (80-100); Mean Platelet Volume 10.8 fl (7.4-10.4); Monocytes Absolute Auto 0.8 K/mm3 (0.1-0.6); Monocytes Percent Auto 8.1 % (2.6-8.5); Neutrophils Percent Auto 80.9 % (45.5-73.1); Platelet Count Result 206 k/mm3 (150-375); Red Blood Count 5.06 M/mm3 (4.2-5.4); Red Cell Distribution Width 14.9 % (11.5-14.5); White Blood Count 9.9 K/mm3 (4.5-10.0)
[2023-07-07 20:06] LABS: Partial Thromboplastin Time 24.2 SECONDS (22.3-36.8); Prothrombin Time 13.9 Seconds (11.1-14.7)
[2023-07-07 20:11] LABS: Alanine Aminotransferase 25 U/L (6-35); Albumin Level 4.7 g/dL (3.5-5.1); Alkaline Phosphatase 72 U/L (38-126); Anion Gap 14 mmol/L (8-16); Aspartate Amino Transferase 41 U/L (14-36); Bilirubin,Total 1.3 mg/dL (0.2-1.3); Blood Urea Nitrogen 85 mg/dL (7-17); Calcium 9.8 mg/dL (8.4-10.2); Carbon Dioxide 36 mmol/L (22-30); Chloride 80 mmol/L (98-107); Estimated CRCL calculation 23 ml/min; Estimated Glomerular Filt Rate 26; Glucose 135 mg/dL (65-110); Lipase 142 U/L (23-300); Potassium 2.4 mmol/L (3.4-5.0); Sodium 130 mmol/L (137-145)
[2023-07-07 20:19] LABS: Troponin I 0.027 ng/mL (0.000-0.034)
--- NOTE | 2023-07-07 20:52 | ED.CHESTPAIN ---
HPI - Chest Pain General Chief Complaint: Chest Pain <Amanda Nguyen MD - Last Filed: 07/08/23 22:50> Stated Complaint: chest pain <Amanda Nguyen MD - Last Filed: 07/08/23 22:50> Time Seen by Provider: 07/07/23 19:43 <Amanda Nguyen MD - Last Filed: 07/08/23 22:50> History of Present Illness HPI narrative: Patient is a 77-year-old female presenting with chest pain. Patient states that she resides in a nursing facility and she was sleeping in her room when she heard a loud crash. Her roommate had fallen out of bed. The patient got up to try to help her roommate when she developed left-sided chest pain. Associated with nausea. States that the pain has improved and currently declines pain medications. States that her legs were swelling a lot earlier this month but they have gone down. She denies cough, shortness of breath, fevers, abdominal pain, vomiting, diarrhea, dysuria. <Amanda Nguyen MD - Last Filed: 07/08/23 22:50> Related Data Home Medications: Home Medications Medication Instructions Recorded Confirmed pravastatin 40 mg tablet 40 mg PO QAM 01/19/23 07/08/23 fluoxetine 10 mg capsule (Prozac) 10 mg PO DAILY 07/08/23 07/08/23 <Amanda Nguyen MD - Last Filed: 07/08/23 22:50> Allergies/Adverse Reactions: Allergies Allergy/AdvReac Type Severity Reaction Status Date / Time prednisone Allergy Severe RASH Verified 07/07/23 19:40 <Amanda Nguyen MD - Last Filed: 07/08/23 22:50> Review of Systems Review of Systems: All systems reviewed & are unremarkable except as noted in HPI and below <Amanda Nguyen MD - Last Filed: 07/08/23 22:50> PMFSH Past Medical History Medical History: Medical History Atherosclerotic heart disease of [place] coronary artery without angina pectoris CHF (congestive heart failure) Chronic atrial fibrillation, unspecified Chronic obstructive pulmonary disease, unspecified Chronic systolic (congestive) heart failure Generalized anxiety disorder Hypertensive heart disease with heart failure Major depressive disorder, recurrent, mild Normal colonoscopy 2011 Occlusion and stenosis of bilateral carotid arteries Pure hypercholesterolemia, unspecified Tobacco dependence <Amanda Nguyen MD - Last Filed: 07/08/23 22:50> Surgical History Surgical History: Surgical History History of hysterectomy History of tonsillectomy Status post total hip replacement, bilateral right hip revision due to infection. <Amanda Nguyen MD - Last Filed: 07/08/23 22:50> Family History Family History: Family History Father Lung cancer Mother Emphysema of lung <Amanda Nguyen MD - Last Filed: 07/08/23 22:50> Social History Social History: Social History Social History: Surrogate medical decision maker: Ruben Owen, son. Code status: Full code. Smoking packs per day: 1 Smoking cigarettes per day: 20.0 Years smoked: 15 Smoking pack-years: 15.00 Smoking status: Former smoker Tobacco type: cigarettes Second hand tobacco smoke exposure: No Smoking end date: 03/12/23 Alcohol intake: former Substance use: never Substance use type: does not use Do You Feel Safe in your Home?: Yes Lack of Transportation: No Lack of Food: Never True Current Housing: I Have Housing Concerned About Future Housing: No Difficulty Paying Gas/Electric Bills: No Difficulty Paying for Meds: No Currently Unemployed: No Education: High School Diploma/GED Difficulty w/ Childcare or Family Care: No Living arrangements: alone Occupation/Education: retired Spiritual care concerns: No Agree to blood products: Yes <Amanda Nguyen MD - Last Filed: 07/08
[2023-07-07] MEDS: POTASSIUM CHLORIDE 20 MEQ ER TABLET 40 MEQ PO (22:19)
[2023-07-07] MEDS: SODIUM CHLORIDE 0.9% IV 500 ML 999 ML IV CONT (22:22)
[2023-07-07] MEDS: POTASSIUM CHLORIDE INJ 40 MEQ in SODIUM CHLORIDE 0.9% IV 500 ML 130 MEQ IVPB (22:23)
[2023-07-07 22:47] LABS: Influenza A QL RT-PCR Negative (Negative); Influenza B QL RT-PCR Negative (Negative); RSV RNA, RT-PCR Negative (Negative); SARS-CoV-2 RNA PCR Negative (Negative)
[2023-07-07 23:33] LABS: Troponin I 0.029 ng/mL (0.000-0.034)
--- NOTE | 2023-07-07 23:39 | PM.IMHP ---
H&P: HPI History of Present Illness Date/Time: 07/07/23 23:39 Chief Complaint: Patient brought to the ER from [facility] for evaluation of chest pain Narrative: She is a pleasant 77 years old [facility] resident. She was sleeping in her bed when she heard that her roommate fell and people were helping her. She started having chest pain at that time, located in the anterior chest intensity 4/10 with some radiation upward but not quite reaching jaw or upper arms. EMS was called and patient was brought to the ER for evaluation. EMS gave her 4 aspirin enroute. EKG was done by EMS which showed AFib, but no STT wave changes. Her potassium was low at 2 point which is being replaced aggressively in the ER. Given her history of CAD and AFib, she is being placed under observation for tele monitoring, follow-up cardiac enzymes, potassium replacement and Cardiology evaluation. Review of Systems Review of Systems: 14 systems were reviewed with pertinent positives and negatives per HPI. Except as documented in the HPI/progress notes, all other systems were reviewed and are negative. All systems reviewed & are unremarkable except as noted in HPI and below PMFSH Past Medical History Medical History Atherosclerotic heart disease of [place] coronary artery without angina pectoris CHF (congestive heart failure) Chronic atrial fibrillation, unspecified Chronic obstructive pulmonary disease, unspecified Chronic systolic (congestive) heart failure Generalized anxiety disorder Hypertensive heart disease with heart failure Major depressive disorder, recurrent, mild Normal colonoscopy 2011 Occlusion and stenosis of bilateral carotid arteries Pure hypercholesterolemia, unspecified Tobacco dependence Surgical History Surgical History History of hysterectomy History of tonsillectomy Status post total hip replacement, bilateral right hip revision due to infection. Family History Family History Father Lung cancer Mother Emphysema of lung Social History Social History Social History: Surrogate medical decision maker: Ruben Owen, robson. Code status: Full code. Smoking packs per day: 1 Smoking cigarettes per day: 20.0 Years smoked: 64 Smoking pack-years: 64.00 Smoking status: Current every day smoker Alcohol intake: never Substance use: never Substance use type: does not use Lack of Transportation: No Lack of Food: Never True Current Housing: Decline to Answer Concerned About Future Housing: No Difficulty Paying Gas/Electric Bills: No Difficulty Paying for Meds: No Currently Unemployed: No Education: High School Diploma/GED Difficulty w/ Childcare or Family Care: No Living arrangements: alone Occupation/Education: retired Spiritual care concerns: No Agree to blood products: Yes Meds Home Medications and Allergies Home Medications Medication Instructions Recorded Confirmed Type ferrous sulfate 325 mg (65 mg 325 mg PO BID #180 tabs 01/16/23 03/29/23 Rx iron) tablet (FeroSul) potassium chloride 20 mEq 20 meq PO DAILY #90 tabs 01/16/23 03/29/23 Rx tablet,extended release pravastatin 40 mg tablet 40 mg PO QAM 01/19/23 03/29/23 History acetaminophen 325 mg tablet (Mapap 650 mg PO Q4H PRN Mild Pain (1-3) 01/24/23 03/29/23 Rx (acetaminophen)) Or Fever #100 tabs calcium carbonate 500 mg calcium 500 mg PO BIDWM #60 tabs 01/24/23 03/29/23 Rx (1,250 mg) tablet (Oyster Shell Calcium 500) cyanocobalamin (vitamin B-12) 1,000 mcg PO QAM #30 tabs 01/24/23 03/29/23 Rx 1,000 mcg tablet (Vitamin B-12) ergocalciferol (vitamin D2) 1,250 1,250 mcg PO Tu@0900 #6 caps 01/24/23 03/29/23 Rx mcg (50,000 unit) capsule (Vitamin D2) pantoprazole 40 mg tablet,delayed 40 mg PO Q
[2023-07-08] VITALS (19 sets, daily range): BP systolic 103–124; BP diastolic 41–85; PULSE 67–97; RESP 12–70; TEMP 36.2–36.9; O2SAT 20–100; BMI 30.7; BMI 31.1
[2023-07-08] MEDS: POTASSIUM CHLORIDE 20 MEQ PACKET (FOR LIQUID) 40 MEQ PO (00:09)
--- NOTE | 2023-07-08 00:13 | ECG_ITS ---
Measurements Intervals [place] Rate: 72 P: VA: 0 QRS: -32 QRSD: 107 T: 37 QT: 428 QTc: 469 Interpretive Statements ATRIAL FIBRILLATION LEFT AXIS DEVIATION ANTEROSEPTAL INFARCT, AGE INDETERMINATE CONSIDER INFERIOR INFARCT, AGE INDETERMINATE BORDERLINE ST-T WAVE ABNORMALITY- HIGH LATERAL LEADS BASELINE ARTIFACT- I, II, AVR, AVL, AVF ABNORMAL ECG COMPARED TO ECG 07/07/2023 19:40:32 NO SIGNIFICANT CHANGES Electronically Signed On 07-08-2023 14:30:24 ENGINEERING AGENT by Mathew Hammond D.O.
--- NOTE | 2023-07-08 00:50 | PC.NURSE ---
RN in to change pt. RN found pt. to have black tarry stools. ERP made aware. pt. had a positive Stool guaiac test.
[2023-07-08 01:47] LABS: Hematocrit 39.4 % (37.0-47.0); Hemoglobin 12.9 g/dL (12.0-15.0)
--- NOTE | 2023-07-08 02:41 | ADMGEN ---
This patient, Zeina Owen, was admitted to IMU Room 231-01 @0227. Patient/family oriented to hospital policies and general routines including ID bracelet, bed and alarms, visiting hours, pain management, procedures, bathroom and other care routines, personal items, smoking policy, room service/diet, and visiting hours. Information on how to activate the Rapid Response Team has been discussed. Patient/Family are encouraged to report perceived risks to care and to ask questions if they do not understand what they are told or what they should do.
[2023-07-08] MEDS: PANTOPRAZOLE SODIUM IV 40 MG VIAL 80 MG IV PUSH (03:31)
[2023-07-08] MEDS: SODIUM CHLORIDE 0.9% IV 1,000 ML 75 ML IV CONT (03:31)
[2023-07-08 05:06] LABS: Basophils Percent Auto 0.4 % (0.2-1.2); Eosinophils Absolute Auto 0.1 K/mm3 (0-0.3); Hematocrit 40.1 % (37.0-47.0); Hemoglobin 13.1 g/dL (12.0-15.0); Immature Granulocyte Absolute 0.06 K/mm3 (0.00-0.031); Immature Granulocyte Percent A 0.6 % (0-0.5); Lymphocytes Absolute Auto 1.03 K/mm3 (0.9-3.2); Lymphocytes Percent Auto 10.4 % (18.3-44.2); Mean Corpuscular HGB Conc 32.7 g/dl (32-36); Mean Corpuscular Hemoglobin 28.1 pg (26-34); Mean Corpuscular Volume 85.9 fl (80-100); Mean Platelet Volume 10.5 fl (7.4-10.4); Monocytes Absolute Auto 0.9 K/mm3 (0.1-0.6); Monocytes Percent Auto 8.7 % (2.6-8.5); Neutrophils Absolute Auto 7.9 K/mm3 (1.3-6.7); Neutrophils Percent Auto 78.9 % (45.5-73.1); Platelet Count Result 182 k/mm3 (150-375); Red Blood Count 4.67 M/mm3 (4.2-5.4); Red Cell Distribution Width 15.1 % (11.5-14.5)
[2023-07-08 05:25] LABS: Anion Gap 10 mmol/L (8-16); Blood Urea Nitrogen 75 mg/dL (7-17); Calcium 8.9 mg/dL (8.4-10.2); Carbon Dioxide 32 mmol/L (22-30); Chloride 90 mmol/L (98-107); Estimated CRCL calculation 24 ml/min; Estimated Glomerular Filt Rate 26; Glucose 97 mg/dL (65-110); Magnesium 1.8 mg/dL (1.6-2.3); Phosphorus 3.1 mg/dL (2.5-4.5); Potassium 2.7 mmol/L (3.4-5.0); Sodium 132 mmol/L (137-145)
[2023-07-08 05:30] LABS: Troponin I 0.034 ng/mL (0.000-0.034)
[2023-07-08] MEDS: POTASSIUM CHLORIDE INJ 40 MEQ in SODIUM CHLORIDE 0.9% IV 500 ML 130 MEQ IVPB (06:03)
[2023-07-08] MEDS: POTASSIUM CHLORIDE 20 MEQ ER TABLET 40 MEQ PO (06:05)
[2023-07-08 08:09] LABS: Glucose Point of Care 83 mg/dl (65-105)
[2023-07-08] MEDS: CYANOCOBALAMIN 1,000 MCG TABLET 1000 MCG PO (09:02)
[2023-07-08] MEDS: dilTIAZem HCL CD 240 MG CAP.24HR PO (09:02)
[2023-07-08] MEDS: glipiZIDE XL 5 MG TABCR PO (09:02)
[2023-07-08] MEDS: FERROUS SULFATE 325 MG TABLET DR PO ×2 (09:02→17:02)
[2023-07-08] MEDS: rOPINIRole HCL 1 MG TABLET PO ×2 (09:02→17:02)
[2023-07-08] MEDS: PRAVASTATIN SODIUM 20 MG TABLET 40 MG PO (09:02)
[2023-07-08] MEDS: FLUoxetine HCL 10 MG CAPSULE PO (09:02)
--- NOTE | 2023-07-08 10:00 | PM.IMPN ---
Progress Note: A&P Assessment and Plan (1) Chest pain: Qualifiers: Chest pain type: unspecified Qualified Code(s): R07.9 - Chest pain, unspecified Code(s): R07.9 - Chest pain, unspecified Status: Inactive (2) Hypertension associated with type 2 diabetes mellitus: Code(s): E11.59 - Type 2 diabetes mellitus with other circulatory complications; I15.2 - Hypertension secondary to endocrine disorders Status: Acute (3) Hyperlipidemia associated with type 2 diabetes mellitus: Code(s): E11.69 - Type 2 diabetes mellitus with other specified complication; E78.5 - Hyperlipidemia, unspecified Status: Acute (4) Contraindication to anticoagulation therapy: Code(s): Z53.09 - Procedure and treatment not carried out because of other contraindication Status: Acute (5) Persistent atrial fibrillation: Code(s): I48.19 - Other persistent atrial fibrillation Status: Acute (6) CHF (congestive heart failure): Qualifiers: Heart failure chronicity: acute on chronic Heart failure type: diastolic Qualified Code(s): I50.33 - Acute on chronic diastolic (congestive) heart failure Code(s): I50.9 - Heart failure, unspecified Status: Acute (7) Recurrent falls: Code(s): R29.6 - Repeated falls Status: Acute (8) Hypertension: Code(s): I10 - Essential (primary) hypertension Status: Acute (9) Restless leg syndrome: Code(s): G25.81 - Restless legs syndrome Status: Acute (10) Tobacco dependence: Code(s): F17.200 - Nicotine dependence, unspecified, uncomplicated Status: Acute (11) Pure hypercholesterolemia, unspecified: Code(s): E78.00 - Pure hypercholesterolemia, unspecified Status: Acute (12) Chronic obstructive pulmonary disease, unspecified: Code(s): J44.9 - Chronic obstructive pulmonary disease, unspecified Status: Acute (13) Generalized anxiety disorder: Code(s): F41.1 - Generalized anxiety disorder Status: Acute (14) Major depressive disorder, recurrent, mild: Code(s): F33.0 - Major depressive disorder, recurrent, mild Status: Acute (15) Atherosclerotic heart disease of [place] coronary artery without angina pectoris: Code(s): I25.10 - Atherosclerotic heart disease of [place] coronary artery without angina pectoris Status: Acute (16) Chronic systolic (congestive) heart failure: Code(s): I50.22 - Chronic systolic (congestive) heart failure Status: Acute (17) Hypertensive heart disease with heart failure: Code(s): I11.0 - Hypertensive heart disease with heart failure Status: Acute (18) Insomnia: Code(s): G47.00 - Insomnia, unspecified Status: Acute (19) Peripheral neuropathy: Qualifiers: Peripheral neuropathy type: polyneuropathy associated with underlying disease Qualified Code(s): G63 - Polyneuropathy in diseases classified elsewhere Code(s): G62.9 - Polyneuropathy, unspecified Status: Acute (20) Obesity, unspecified: Code(s): E66.9 - Obesity, unspecified Status: Acute (21) Type 2 diabetes mellitus with diabetic polyneuropathy: Code(s): E11.42 - Type 2 diabetes mellitus with diabetic polyneuropathy Status: Acute (22) Nicotine dependence, cigarettes, with other nicotine-induced disorders: Code(s): F17.218 - Nicotine dependence, cigarettes, with other nicotine-induced disorders Status: Acute (23) Overactive bladder: Code(s): N32.81 - Overactive bladder Status: Acute Plan [age]-year-old female presented with chest pain. snf resident. She was sleeping in her room when she heard a loud crash. Her roommate had fallen out of bed. Patient got up to try to help her roommate when she developed left-sided chest pain. Associated with nausea. States her legs were swollen a lot earlier this month but has improved now. Was
[2023-07-08 11:03] LABS: Creatine Kinase 135 U/L (30-135); Potassium 3.4 mmol/L (3.4-5.0)
[2023-07-08 11:05] LABS: Hematocrit 39.6 % (37.0-47.0)
[2023-07-08 12:19] LABS: Glucose Point of Care 108 mg/dl (65-105)
[2023-07-08] MEDS: POTASSIUM CHLORIDE 20 MEQ ER TABLET PO (15:31)
[2023-07-08] MEDS: LIDOCAINE 5% PATCH 1 PATCH TRANSDERM (15:32)
[2023-07-08 17:03] LABS: Glucose Point of Care 127 mg/dl (65-105)
[2023-07-08 20:05] LABS: Glucose Point of Care 108 mg/dl (65-105)
[2023-07-08] MEDS: ACETAMINOPHEN 325 MG TABLET 650 MG PO (21:21)
[2023-07-09] VITALS (19 sets, daily range): BP systolic 93–132; BP diastolic 48–76; PULSE 65–92; RESP 16–22; TEMP 36.6–37; O2SAT 93–100
--- NOTE | 2023-07-09 | ECHO_ITS ---
Patient Info Name: Zeina Owen Age: 77 years : 1945 Gender: Female Ht: 66 in Wt: 197 lbs BSA: 2.07 m2 HR: 81 bpm BP: 118 / 76 mmHg Technical Quality: Fair Exam Date: 07/09/2023 10:35 AM Exam Location: Echo Lab Patient Status: Inpatient Admit Date: 07/08/2023 Staff Ordering Physician: Sourav Marsh MD Attending Provider: Frederick Park MD Exam Type: CA echo doppler color flow Study Info Indications R07.9 - Chest pain, unspecified Complete two-dimensional, color flow and Doppler transthoracic echocardiogram is performed. Summary 1. Complete two-dimensional, color flow and Doppler transthoracic echocardiogram is performed. 2. Left ventricular chamber dimension is normal. 3. Left ventricular systolic function is normal, estimated at 55-60%. 4. There is mildly increased left ventricular wall thickness. 5. Right ventricular chamber dimension is mildly enlarged. 6. Right ventricular systolic function is reduced. 7. Left atrial chamber dimension is severely enlarged. 8. Right atrial chamber dimension is mildly enlarged. 9. There is moderate mitral valve regurgitation. 10. There is mild tricuspid valve regurgitation. Left Ventricle Left ventricular chamber dimension is normal. Left ventricular systolic function is normal, estimated at 55-60%. There is mildly increased left ventricular wall thickness. Right Ventricle Right ventricular chamber dimension is mildly enlarged. Right ventricular systolic function is reduced. Left Atria Left atrial chamber dimension is severely enlarged. Right Atria Right atrial chamber dimension is mildly enlarged. Atrial Septum Intact interatrial septum visualized by color flow imaging. Aortic Valve The aortic valve is not well visualized. There is no aortic valve stenosis. There is no aortic valve regurgitation. There is mild aortic valve calcification. Pulmonic Valve The pulmonic valve is not well visualized. Mitral Valve The mitral valve has thickened leaflets. There is moderate mitral valve regurgitation. The mitral valve annulus is moderately calcified. Tricuspid Valve There is mild tricuspid valve regurgitation. Pericardium/Pleural There is no pericardial effusion. Inferior Vena Cava Dilated inferior vena cava with >50% collapse upon inspiration consistent with elevated right atrial pressure, 8 mmHg. Aorta The aortic root size at the sinus of Valsalva is normal. Left Ventricular Outflow Tract Name Value Normal LVOT 2D LVOT Diameter 2.0 cm LVOT Doppler LVOT Peak Gradient 2 mmHg LVOT Mean Gradient 1 mmHg LVOT VTI 18 cm LVOT VTI/AV VTI Ratio 0.7 LVOT Stroke Volume 58 ml LVOT CO 3.4 l/min LVOT CI 1.6 l/min/m2 Pulmonic Valve Name Value Normal PV Doppler PV Peak Gradient
[2023-07-09 06:04] LABS: Basophils Percent Auto 0.5 % (0.2-1.2); Eosinophils Absolute Auto 0.2 K/mm3 (0-0.3); Eosinophils Percent Auto 2.1 % (0-4.4); Hematocrit 38.5 % (37.0-47.0); Hemoglobin 12.1 g/dL (12.0-15.0); Immature Granulocyte Absolute 0.04 K/mm3 (0.00-0.031); Immature Granulocyte Percent A 0.5 % (0-0.5); Immature Platelet Fraction Pct 7.2 % (0.9-11.2); Lymphocytes Absolute Auto 0.64 K/mm3 (0.9-3.2); Lymphocytes Percent Auto 8.4 % (18.3-44.2); Mean Corpuscular HGB Conc 31.4 g/dl (32-36); Mean Corpuscular Hemoglobin 27.9 pg (26-34); Mean Corpuscular Volume 88.7 fl (80-100); Monocytes Percent Auto 12.8 % (2.6-8.5); Neutrophils Absolute Auto 5.8 K/mm3 (1.3-6.7); Neutrophils Percent Auto 75.7 % (45.5-73.1); Platelet Count Result 149 k/mm3 (150-375); Red Blood Count 4.34 M/mm3 (4.2-5.4); Red Cell Distribution Width 15.6 % (11.5-14.5); White Blood Count 7.6 K/mm3 (4.5-10.0)
[2023-07-09 06:21] LABS: Anion Gap 9 mmol/L (8-16); Blood Urea Nitrogen 52 mg/dL (7-17); Calcium 8.8 mg/dL (8.4-10.2); Carbon Dioxide 30 mmol/L (22-30); Chloride 93 mmol/L (98-107); Estimated CRCL calculation 33 ml/min; Estimated Glomerular Filt Rate 36; Glucose 80 mg/dL (65-110); Potassium 3.2 mmol/L (3.4-5.0); Sodium 132 mmol/L (137-145)
[2023-07-09] MEDS: CYANOCOBALAMIN 1,000 MCG TABLET 1000 MCG PO (08:46)
[2023-07-09] MEDS: rOPINIRole HCL 1 MG TABLET PO ×2 (08:46→16:25)
[2023-07-09] MEDS: ASPIRIN 81 MG ENTERIC TABLET PO (08:46)
[2023-07-09] MEDS: FERROUS SULFATE 325 MG TABLET DR PO ×2 (08:46→16:25)
[2023-07-09] MEDS: PRAVASTATIN SODIUM 20 MG TABLET 40 MG PO (08:46)
[2023-07-09] MEDS: glipiZIDE XL 5 MG TABCR PO (08:46)
[2023-07-09] MEDS: dilTIAZem HCL CD 240 MG CAP.24HR PO (08:46)
[2023-07-09] MEDS: FLUoxetine HCL 10 MG CAPSULE PO (08:46)
[2023-07-09 09:11] LABS: Glucose Point of Care 72 mg/dl (65-105)
[2023-07-09] MEDS: ERGOCALCIFEROL 50,000 UNITS CAPSULE 50000 UNITS PO (10:24)
[2023-07-09] MEDS: LIDOCAINE 5% PATCH 1 PATCH TRANSDERM (10:24)
--- NOTE | 2023-07-09 10:58 | PM.IMPN ---
Progress Note: A&P Assessment and Plan (1) Chest pain: Qualifiers: Chest pain type: unspecified Qualified Code(s): R07.9 - Chest pain, unspecified Code(s): R07.9 - Chest pain, unspecified Status: Inactive (2) Hypertension associated with type 2 diabetes mellitus: Code(s): E11.59 - Type 2 diabetes mellitus with other circulatory complications; I15.2 - Hypertension secondary to endocrine disorders Status: Acute (3) Hyperlipidemia associated with type 2 diabetes mellitus: Code(s): E11.69 - Type 2 diabetes mellitus with other specified complication; E78.5 - Hyperlipidemia, unspecified Status: Acute (4) Contraindication to anticoagulation therapy: Code(s): Z53.09 - Procedure and treatment not carried out because of other contraindication Status: Acute (5) Persistent atrial fibrillation: Code(s): I48.19 - Other persistent atrial fibrillation Status: Acute (6) CHF (congestive heart failure): Qualifiers: Heart failure chronicity: acute on chronic Heart failure type: diastolic Qualified Code(s): I50.33 - Acute on chronic diastolic (congestive) heart failure Code(s): I50.9 - Heart failure, unspecified Status: Acute (7) Recurrent falls: Code(s): R29.6 - Repeated falls Status: Acute (8) Hypertension: Code(s): I10 - Essential (primary) hypertension Status: Acute (9) Restless leg syndrome: Code(s): G25.81 - Restless legs syndrome Status: Acute (10) Tobacco dependence: Code(s): F17.200 - Nicotine dependence, unspecified, uncomplicated Status: Acute (11) Pure hypercholesterolemia, unspecified: Code(s): E78.00 - Pure hypercholesterolemia, unspecified Status: Acute (12) Chronic obstructive pulmonary disease, unspecified: Code(s): J44.9 - Chronic obstructive pulmonary disease, unspecified Status: Acute (13) Generalized anxiety disorder: Code(s): F41.1 - Generalized anxiety disorder Status: Acute (14) Major depressive disorder, recurrent, mild: Code(s): F33.0 - Major depressive disorder, recurrent, mild Status: Acute (15) Atherosclerotic heart disease of [place] coronary artery without angina pectoris: Code(s): I25.10 - Atherosclerotic heart disease of [place] coronary artery without angina pectoris Status: Acute (16) Chronic systolic (congestive) heart failure: Code(s): I50.22 - Chronic systolic (congestive) heart failure Status: Acute (17) Hypertensive heart disease with heart failure: Code(s): I11.0 - Hypertensive heart disease with heart failure Status: Acute (18) Insomnia: Code(s): G47.00 - Insomnia, unspecified Status: Acute (19) Peripheral neuropathy: Qualifiers: Peripheral neuropathy type: polyneuropathy associated with underlying disease Qualified Code(s): G63 - Polyneuropathy in diseases classified elsewhere Code(s): G62.9 - Polyneuropathy, unspecified Status: Acute (20) Obesity, unspecified: Code(s): E66.9 - Obesity, unspecified Status: Acute (21) Type 2 diabetes mellitus with diabetic polyneuropathy: Code(s): E11.42 - Type 2 diabetes mellitus with diabetic polyneuropathy Status: Acute (22) Nicotine dependence, cigarettes, with other nicotine-induced disorders: Code(s): F17.218 - Nicotine dependence, cigarettes, with other nicotine-induced disorders Status: Acute (23) Overactive bladder: Code(s): N32.81 - Overactive bladder Status: Acute Plan [age]-year-old female presented with chest pain. skilled nursing resident. She was sleeping in her room when she heard a loud crash. Her roommate had fallen out of bed. Patient got up to try to help her roommate when she developed left-sided chest pain. Associated with nausea. States her legs were swollen a lot earlier this month but has improved now. Was
[2023-07-09] MEDS: POTASSIUM CHLORIDE 20 MEQ ER TABLET 40 MEQ PO (11:01)
[2023-07-09] MEDS: DOXYCYCLINE HYCLATE 100 MG TABLET PO ×2 (11:20→20:21)
[2023-07-09] MEDS: FUROSEMIDE INJ 40 MG/4 ML VIAL 20 MG IV PUSH (11:20)
[2023-07-09 11:58] LABS: IFOB Positive Control Positive; Immunochemical Fecal Occult Bl Negative (N)
[2023-07-09 12:19] LABS: Glucose Point of Care 73 mg/dl (65-105)
--- NOTE | 2023-07-09 13:53 | PC.NURSE ---
Pt refused lung scan. Became claustrophobic. Dr. Marsh informed.
[2023-07-09] MEDS: ALBUTEROL SULFATE NEB 2.5 MG/3 ML INH INHALATION ×2 (15:27→21:15)
[2023-07-09] MEDS: IPRATROPIUM BR 0.02% INH SOLN 0.5 MG/2.5 ML VIAL INHALATION ×2 (15:27→21:15)
[2023-07-09] MEDS: ACETAMINOPHEN 325 MG TABLET 650 MG PO ×2 (16:30→20:21)
[2023-07-09 20:14] LABS: Glucose Point of Care 68 mg/dl (65-105)
[2023-07-09] MEDS: hydrOXYzine pamoate 25 MG CAPSULE PO (20:18)
[2023-07-09 20:46] LABS: Glucose Point of Care 78 mg/dl (65-105)
[2023-07-09 23:56] LABS: Glucose Point of Care 71 mg/dl (65-105)
[2023-07-10] VITALS (21 sets, daily range): BP systolic 114–158; BP diastolic 50–88; PULSE 55–106; RESP 18–22; TEMP 36.6–37.7; O2SAT 91–100
[2023-07-10 01:18] LABS: Glucose Point of Care 74 mg/dl (65-105)
[2023-07-10] MEDS: DEXTROSE 50% 25 GM/50 ML SYRINGE IV PUSH ×2 (01:23→05:18)
--- NOTE | 2023-07-10 02:24 | PCRCNOTE ---
pt is completing an overnight sleep study screening for UMA,therefore, pt was not given her 0200 breathing tx because waking the pt for a tx could affect the UMA screening
[2023-07-10 04:43] LABS: Glucose Point of Care 77 mg/dl (65-105)
[2023-07-10 04:49] LABS: Glucose Point of Care 73 mg/dl (65-105)
[2023-07-10] MEDS: hydrOXYzine pamoate 25 MG CAPSULE PO (05:44)
[2023-07-10 05:54] LABS: Glucose Point of Care 105 mg/dl (65-105)
[2023-07-10] MEDS: DOXYCYCLINE HYCLATE 100 MG TABLET PO ×2 (06:52→18:14)
[2023-07-10 07:02] LABS: Basophils Absolute Auto 0.1 K/mm3 (0.0-0.1); Basophils Percent Auto 0.5 % (0.2-1.2); Eosinophils Percent Auto 0.1 % (0-4.4); Hemoglobin 12.1 g/dL (12.0-15.0); Immature Granulocyte Absolute 0.05 K/mm3 (0.00-0.031); Immature Granulocyte Percent A 0.5 % (0-0.5); Lymphocytes Absolute Auto 0.42 K/mm3 (0.9-3.2); Lymphocytes Percent Auto 4.5 % (18.3-44.2); Mean Corpuscular HGB Conc 32.7 g/dl (32-36); Mean Corpuscular Hemoglobin 27.8 pg (26-34); Mean Corpuscular Volume 85.1 fl (80-100); Monocytes Absolute Auto 0.7 K/mm3 (0.1-0.6); Monocytes Percent Auto 7.3 % (2.6-8.5); Neutrophils Absolute Auto 8.1 K/mm3 (1.3-6.7); Neutrophils Percent Auto 87.1 % (45.5-73.1); Platelet Count Result 147 k/mm3 (150-375); Red Blood Count 4.35 M/mm3 (4.2-5.4); Red Cell Distribution Width 15.7 % (11.5-14.5); White Blood Count 9.3 K/mm3 (4.5-10.0)
[2023-07-10 07:19] LABS: Potassium 3.3 mmol/L (3.4-5.0)
[2023-07-10] MEDS: IPRATROPIUM BR 0.02% INH SOLN 0.5 MG/2.5 ML VIAL INHALATION ×3 (07:20→23:23)
[2023-07-10] MEDS: ALBUTEROL SULFATE NEB 2.5 MG/3 ML INH INHALATION ×3 (07:20→23:23)
[2023-07-10 07:26] LABS: Anion Gap 10 mmol/L (8-16); Blood Urea Nitrogen 37 mg/dL (7-17); Calcium 8.3 mg/dL (8.4-10.2); Carbon Dioxide 31 mmol/L (22-30); Chloride 88 mmol/L (98-107); Estimated CRCL calculation 42 ml/min; Estimated Glomerular Filt Rate 48; Glucose 68 mg/dL (65-110); Sodium 129 mmol/L (137-145)
[2023-07-10 08:08] LABS: Glucose Point of Care 72 mg/dl (65-105)
[2023-07-10] MEDS: DEXTROSE 5% 1,000 ML 1,000 ML 100 ML IVPB (08:59)
--- NOTE | 2023-07-10 09:04 | PC.NURSE ---
Pt BS at 0741 was [address] Graham aware gave ok to start D5 at 100 ml/hr to help maintain BS.
[2023-07-10] MEDS: FERROUS SULFATE 325 MG TABLET DR PO ×2 (09:10→18:13)
[2023-07-10] MEDS: dilTIAZem HCL CD 240 MG CAP.24HR PO (09:11)
[2023-07-10] MEDS: FLUoxetine HCL 10 MG CAPSULE PO (09:11)
[2023-07-10] MEDS: LIDOCAINE 5% PATCH 1 PATCH TRANSDERM (09:11)
[2023-07-10] MEDS: PRAVASTATIN SODIUM 20 MG TABLET 40 MG PO (09:11)
[2023-07-10] MEDS: rOPINIRole HCL 1 MG TABLET PO ×2 (09:12→18:13)
[2023-07-10] MEDS: CYANOCOBALAMIN 1,000 MCG TABLET 1000 MCG PO (09:12)
[2023-07-10] MEDS: ASPIRIN 81 MG ENTERIC TABLET PO (09:12)
--- NOTE | 2023-07-10 12:11 | PM.IMPN ---
Progress Note: A&P Assessment and Plan (1) Chest pain: Qualifiers: Chest pain type: unspecified Qualified Code(s): R07.9 - Chest pain, unspecified Code(s): R07.9 - Chest pain, unspecified Status: Inactive (2) Hypertension associated with type 2 diabetes mellitus: Code(s): E11.59 - Type 2 diabetes mellitus with other circulatory complications; I15.2 - Hypertension secondary to endocrine disorders Status: Acute (3) Hyperlipidemia associated with type 2 diabetes mellitus: Code(s): E11.69 - Type 2 diabetes mellitus with other specified complication; E78.5 - Hyperlipidemia, unspecified Status: Acute (4) Contraindication to anticoagulation therapy: Code(s): Z53.09 - Procedure and treatment not carried out because of other contraindication Status: Acute (5) Persistent atrial fibrillation: Code(s): I48.19 - Other persistent atrial fibrillation Status: Acute (6) CHF (congestive heart failure): Qualifiers: Heart failure chronicity: acute on chronic Heart failure type: diastolic Qualified Code(s): I50.33 - Acute on chronic diastolic (congestive) heart failure Code(s): I50.9 - Heart failure, unspecified Status: Acute (7) Recurrent falls: Code(s): R29.6 - Repeated falls Status: Acute (8) Hypertension: Code(s): I10 - Essential (primary) hypertension Status: Acute (9) Restless leg syndrome: Code(s): G25.81 - Restless legs syndrome Status: Acute (10) Tobacco dependence: Code(s): F17.200 - Nicotine dependence, unspecified, uncomplicated Status: Acute (11) Pure hypercholesterolemia, unspecified: Code(s): E78.00 - Pure hypercholesterolemia, unspecified Status: Acute (12) Chronic obstructive pulmonary disease, unspecified: Code(s): J44.9 - Chronic obstructive pulmonary disease, unspecified Status: Acute (13) Generalized anxiety disorder: Code(s): F41.1 - Generalized anxiety disorder Status: Acute (14) Major depressive disorder, recurrent, mild: Code(s): F33.0 - Major depressive disorder, recurrent, mild Status: Acute (15) Atherosclerotic heart disease of [place] coronary artery without angina pectoris: Code(s): I25.10 - Atherosclerotic heart disease of [place] coronary artery without angina pectoris Status: Acute (16) Chronic systolic (congestive) heart failure: Code(s): I50.22 - Chronic systolic (congestive) heart failure Status: Acute (17) Hypertensive heart disease with heart failure: Code(s): I11.0 - Hypertensive heart disease with heart failure Status: Acute (18) Insomnia: Code(s): G47.00 - Insomnia, unspecified Status: Acute (19) Peripheral neuropathy: Qualifiers: Peripheral neuropathy type: polyneuropathy associated with underlying disease Qualified Code(s): G63 - Polyneuropathy in diseases classified elsewhere Code(s): G62.9 - Polyneuropathy, unspecified Status: Acute (20) Obesity, unspecified: Code(s): E66.9 - Obesity, unspecified Status: Acute (21) Type 2 diabetes mellitus with diabetic polyneuropathy: Code(s): E11.42 - Type 2 diabetes mellitus with diabetic polyneuropathy Status: Acute (22) Nicotine dependence, cigarettes, with other nicotine-induced disorders: Code(s): F17.218 - Nicotine dependence, cigarettes, with other nicotine-induced disorders Status: Acute (23) Overactive bladder: Code(s): N32.81 - Overactive bladder Status: Acute Plan [age]-year-old female presented with chest pain. [facility] resident. She was sleeping in her room when she heard a loud crash. Her roommate had fallen out of bed. Patient got up to try to help her roommate when she developed left-sided chest pain. Associated with nausea. States her legs were swollen a lot earlier this month but has improved now.
[2023-07-10] MEDS: ALPRAZolam (*CRX) 0.5 MG TABLET PO ×2 (12:35→22:02)
[2023-07-10 12:45] LABS: Glucose Point of Care 106 mg/dl (65-105)
[2023-07-10] MEDS: SODIUM CHLORIDE 0.9% IV 1,000 ML 100 ML IV CONT (12:53)
[2023-07-10 12:55] LABS: Glucose Point of Care 99 mg/dl (65-105)
[2023-07-10] MEDS: DEXTROSE 5%/0.9% SOD CHL 1,000 ML 100 ML IV CONT (13:19)
[2023-07-10] MEDS: POTASSIUM CHLORIDE INJ 40 MEQ in SODIUM CHLORIDE 0.9% IV 500 ML 130 MEQ IVPB ×2 (13:41→21:36)
[2023-07-10 16:49] LABS: Glucose Point of Care 96 mg/dl (65-105)
[2023-07-10 17:36] LABS: Glucose Point of Care 92 mg/dl (65-105)
[2023-07-10 19:53] LABS: Anion Gap 6 mmol/L (8-16); Blood Urea Nitrogen 30 mg/dL (7-17); Calcium 7.9 mg/dL (8.4-10.2); Carbon Dioxide 30 mmol/L (22-30); Chloride 91 mmol/L (98-107); Estimated CRCL calculation 42 ml/min; Estimated Glomerular Filt Rate 48; Glucose 100 mg/dL (65-110); Potassium 2.9 mmol/L (3.4-5.0); Sodium 127 mmol/L (137-145)
[2023-07-10 20:50] LABS: Glucose Point of Care 110 mg/dl (65-105)
[2023-07-11] VITALS (18 sets, daily range): BP systolic 113–122; BP diastolic 51–64; PULSE 82–103; RESP 18–30; TEMP 36.1–37.2; O2SAT 91–100; BMI 33.7
--- NOTE | 2023-07-11 03:46 | PCRCNOTE ---
Patient states if she is sleeping for her 0200 treatment, to let her sleep. Pt was sleeping. Updraft treatment to resume @ 0800.
[2023-07-11 05:48] LABS: Anion Gap 8 mmol/L (8-16); Blood Urea Nitrogen 22 mg/dL (7-17); Carbon Dioxide 28 mmol/L (22-30); Chloride 96 mmol/L (98-107); Estimated CRCL calculation 47 ml/min; Estimated Glomerular Filt Rate 53; Glucose 96 mg/dL (65-110); Magnesium 1.6 mg/dL (1.6-2.3); Potassium 3.4 mmol/L (3.4-5.0); Sodium 132 mmol/L (137-145)
[2023-07-11] MEDS: DEXTROSE 5%/0.9% SOD CHL 1,000 ML 100 ML IV CONT (06:30)
[2023-07-11] MEDS: DOXYCYCLINE HYCLATE 100 MG TABLET PO ×2 (06:30→18:12)
[2023-07-11 07:40] LABS: Glucose Point of Care 96 mg/dl (65-105)
[2023-07-11] MEDS: ALBUTEROL SULFATE NEB 2.5 MG/3 ML INH INHALATION ×3 (08:38→21:00)
[2023-07-11] MEDS: IPRATROPIUM BR 0.02% INH SOLN 0.5 MG/2.5 ML VIAL INHALATION ×3 (08:38→20:58)
[2023-07-11] MEDS: LIDOCAINE 5% PATCH 1 PATCH TRANSDERM (09:07)
[2023-07-11] MEDS: POTASSIUM CHLORIDE 20 MEQ PACKET (FOR LIQUID) PO ×2 (09:07→17:56)
[2023-07-11] MEDS: rOPINIRole HCL 1 MG TABLET PO ×2 (09:07→17:56)
[2023-07-11] MEDS: dilTIAZem HCL CD 240 MG CAP.24HR PO (09:08)
[2023-07-11] MEDS: PRAVASTATIN SODIUM 20 MG TABLET 40 MG PO (09:08)
[2023-07-11] MEDS: FLUoxetine HCL 10 MG CAPSULE PO (09:09)
[2023-07-11] MEDS: CYANOCOBALAMIN 1,000 MCG TABLET 1000 MCG PO (09:09)
[2023-07-11] MEDS: FERROUS SULFATE 325 MG TABLET DR PO ×2 (09:09→17:56)
[2023-07-11] MEDS: ASPIRIN 81 MG ENTERIC TABLET PO (09:12)
--- NOTE | 2023-07-11 09:55 | PM.IMPN ---
Progress Note: A&P Assessment and Plan (1) Chest pain: Qualifiers: Chest pain type: unspecified Qualified Code(s): R07.9 - Chest pain, unspecified Code(s): R07.9 - Chest pain, unspecified Status: Inactive (2) Hypertension associated with type 2 diabetes mellitus: Code(s): E11.59 - Type 2 diabetes mellitus with other circulatory complications; I15.2 - Hypertension secondary to endocrine disorders Status: Acute (3) Hyperlipidemia associated with type 2 diabetes mellitus: Code(s): E11.69 - Type 2 diabetes mellitus with other specified complication; E78.5 - Hyperlipidemia, unspecified Status: Acute (4) Contraindication to anticoagulation therapy: Code(s): Z53.09 - Procedure and treatment not carried out because of other contraindication Status: Acute (5) Persistent atrial fibrillation: Code(s): I48.19 - Other persistent atrial fibrillation Status: Acute (6) CHF (congestive heart failure): Qualifiers: Heart failure chronicity: acute on chronic Heart failure type: diastolic Qualified Code(s): I50.33 - Acute on chronic diastolic (congestive) heart failure Code(s): I50.9 - Heart failure, unspecified Status: Acute (7) Recurrent falls: Code(s): R29.6 - Repeated falls Status: Acute (8) Hypertension: Code(s): I10 - Essential (primary) hypertension Status: Acute (9) Restless leg syndrome: Code(s): G25.81 - Restless legs syndrome Status: Acute (10) Tobacco dependence: Code(s): F17.200 - Nicotine dependence, unspecified, uncomplicated Status: Acute (11) Pure hypercholesterolemia, unspecified: Code(s): E78.00 - Pure hypercholesterolemia, unspecified Status: Acute (12) Chronic obstructive pulmonary disease, unspecified: Code(s): J44.9 - Chronic obstructive pulmonary disease, unspecified Status: Acute (13) Generalized anxiety disorder: Code(s): F41.1 - Generalized anxiety disorder Status: Acute (14) Major depressive disorder, recurrent, mild: Code(s): F33.0 - Major depressive disorder, recurrent, mild Status: Acute (15) Atherosclerotic heart disease of [place] coronary artery without angina pectoris: Code(s): I25.10 - Atherosclerotic heart disease of [place] coronary artery without angina pectoris Status: Acute (16) Chronic systolic (congestive) heart failure: Code(s): I50.22 - Chronic systolic (congestive) heart failure Status: Acute (17) Hypertensive heart disease with heart failure: Code(s): I11.0 - Hypertensive heart disease with heart failure Status: Acute (18) Insomnia: Code(s): G47.00 - Insomnia, unspecified Status: Acute (19) Peripheral neuropathy: Qualifiers: Peripheral neuropathy type: polyneuropathy associated with underlying disease Qualified Code(s): G63 - Polyneuropathy in diseases classified elsewhere Code(s): G62.9 - Polyneuropathy, unspecified Status: Acute (20) Obesity, unspecified: Code(s): E66.9 - Obesity, unspecified Status: Acute (21) Type 2 diabetes mellitus with diabetic polyneuropathy: Code(s): E11.42 - Type 2 diabetes mellitus with diabetic polyneuropathy Status: Acute (22) Nicotine dependence, cigarettes, with other nicotine-induced disorders: Code(s): F17.218 - Nicotine dependence, cigarettes, with other nicotine-induced disorders Status: Acute (23) Overactive bladder: Code(s): N32.81 - Overactive bladder Status: Acute Plan [age]-year-old female presented [facility]. [facility] She was sleeping in her room when she heard a loud crash. Her roommate had fallen out of bed. Patient got up to try to help her roommate when she developed left-sided chest pain. Associated with nausea. States her legs were swollen a lot earlier this month but has improved now.
[2023-07-11 10:19] LABS: Basophils Percent Auto 0.8 % (0.2-1.2); Eosinophils Absolute Auto 0.1 K/mm3 (0-0.3); Eosinophils Percent Auto 2.7 % (0-4.4); Hemoglobin 10.8 g/dL (12.0-15.0); Immature Granulocyte Absolute 0.02 K/mm3 (0.00-0.031); Immature Granulocyte Percent A 0.4 % (0-0.5); Lymphocytes Absolute Auto 0.64 K/mm3 (0.9-3.2); Lymphocytes Percent Auto 12.2 % (18.3-44.2); Mean Corpuscular HGB Conc 30.9 g/dl (32-36); Mean Corpuscular Hemoglobin 27.5 pg (26-34); Mean Corpuscular Volume 89.1 fl (80-100); Mean Platelet Volume 11.4 fl (7.4-10.4); Monocytes Absolute Auto 0.8 K/mm3 (0.1-0.6); Monocytes Percent Auto 14.3 % (2.6-8.5); Neutrophils Absolute Auto 3.7 K/mm3 (1.3-6.7); Neutrophils Percent Auto 69.6 % (45.5-73.1); Platelet Count Result 123 k/mm3 (150-375); Red Blood Count 3.93 M/mm3 (4.2-5.4); Red Cell Distribution Width 16.2 % (11.5-14.5); White Blood Count 5.3 K/mm3 (4.5-10.0)
--- NOTE | 2023-07-11 11:42 | PCSTNOTE ---
Please refer to the Bedside Swallow Evaluation in the EMR. Please note, silent aspiration cannot be ruled out at bedside.
[2023-07-11 12:15] LABS: Glucose Point of Care 114 mg/dl (65-105)
--- NOTE | 2023-07-11 14:24 | PCSTNOTE ---
Please refer to the Modified Barium Swallow Evaluation in the EMR.
[2023-07-11] MEDS: cefTRIAXone 2 GM/NS 100 ML 2 GM/100 ML BAG IVPB (15:36)
[2023-07-11] MEDS: FUROSEMIDE INJ 40 MG/4 ML VIAL IV PUSH (15:36)
[2023-07-11 16:32] LABS: Glucose Point of Care 117 mg/dl (65-105)
[2023-07-11] MEDS: ALPRAZolam (*CRX) 0.5 MG TABLET PO (17:56)
[2023-07-11 20:22] LABS: Glucose Point of Care 146 mg/dl (65-105)
--- NOTE | 2023-07-11 23:41 | PC.NURSE ---
This patient, Zeina Owen, was transferred to [facility] [place] [facility] [place]23 at 2345. Personal belongings sent with patient. Report given to Hunter CAMARA. Appropriate documentation sent with patient.
[2023-07-12] VITALS (10 sets, daily range): BP systolic 84–114; BP diastolic 35–63; PULSE 83–106; RESP 16–18; TEMP 36.6–37; O2SAT 92–97
[2023-07-12] MEDS: ALPRAZolam (*CRX) 0.5 MG TABLET PO ×3 (00:23→23:46)
[2023-07-12] MEDS: DOXYCYCLINE HYCLATE 100 MG TABLET PO ×2 (05:55→17:22)
[2023-07-12 06:36] LABS: Basophils Percent Auto 0.6 % (0.2-1.2); Eosinophils Percent Auto 0.8 % (0-4.4); Hematocrit 33.9 % (37.0-47.0); Hemoglobin 10.7 g/dL (12.0-15.0); Immature Granulocyte Absolute 0.02 K/mm3 (0.00-0.031); Immature Granulocyte Percent A 0.4 % (0-0.5); Immature Platelet Fraction Pct 7.9 % (0.9-11.2); Lymphocytes Percent Auto 18.7 % (18.3-44.2); Mean Corpuscular HGB Conc 31.6 g/dl (32-36); Mean Corpuscular Hemoglobin 27.5 pg (26-34); Mean Corpuscular Volume 87.1 fl (80-100); Mean Platelet Volume 11.4 fl (7.4-10.4); Monocytes Absolute Auto 0.5 K/mm3 (0.1-0.6); Monocytes Percent Auto 10.2 % (2.6-8.5); Neutrophils Absolute Auto 3.3 K/mm3 (1.3-6.7); Neutrophils Percent Auto 69.3 % (45.5-73.1); Platelet Count Result 113 k/mm3 (150-375); Red Blood Count 3.89 M/mm3 (4.2-5.4); Red Cell Distribution Width 16.3 % (11.5-14.5); White Blood Count 4.8 K/mm3 (4.5-10.0)
[2023-07-12 06:42] LABS: Anion Gap 10 mmol/L (8-16); Blood Urea Nitrogen 18 mg/dL (7-17); Calcium 7.8 mg/dL (8.4-10.2); Carbon Dioxide 29 mmol/L (22-30); Chloride 90 mmol/L (98-107); Estimated CRCL calculation 42 ml/min; Estimated Glomerular Filt Rate 48; Glucose 75 mg/dL (65-110); Potassium 2.8 mmol/L (3.4-5.0); Sodium 129 mmol/L (137-145)
--- NOTE | 2023-07-12 07:05 | PC.NURSE ---
Notified Dr. Santana of patient's critical potassium of 2.8. New orders received for potassium k-rider 40 meq IVPB once.
[2023-07-12 07:52] LABS: Glucose Point of Care 77 mg/dl (65-105)
[2023-07-12] MEDS: IPRATROPIUM BR 0.02% INH SOLN 0.5 MG/2.5 ML VIAL INHALATION ×3 (08:11→22:07)
[2023-07-12] MEDS: ALBUTEROL SULFATE NEB 2.5 MG/3 ML INH INHALATION ×3 (08:11→22:05)
[2023-07-12] MEDS: POTASSIUM CHLORIDE INJ 40 MEQ in SODIUM CHLORIDE 0.9% IV 500 ML 130 MEQ IVPB (08:35)
[2023-07-12] MEDS: ASPIRIN 81 MG ENTERIC TABLET PO (08:37)
[2023-07-12] MEDS: rOPINIRole HCL 1 MG TABLET PO ×2 (08:37→15:28)
[2023-07-12] MEDS: PRAVASTATIN SODIUM 20 MG TABLET 40 MG PO (08:37)
[2023-07-12] MEDS: FERROUS SULFATE 325 MG TABLET DR PO ×2 (08:37→16:35)
[2023-07-12] MEDS: CYANOCOBALAMIN 1,000 MCG TABLET 1000 MCG PO (08:37)
[2023-07-12] MEDS: POTASSIUM CHLORIDE 20 MEQ PACKET (FOR LIQUID) PO (08:37)
--- NOTE | 2023-07-12 09:09 | PM.IMPN ---
Progress Note: A&P Assessment and Plan (1) Chest pain: Qualifiers: Chest pain type: unspecified Qualified Code(s): R07.9 - Chest pain, unspecified Code(s): R07.9 - Chest pain, unspecified Status: Inactive (2) Hypertension associated with type 2 diabetes mellitus: Code(s): E11.59 - Type 2 diabetes mellitus with other circulatory complications; I15.2 - Hypertension secondary to endocrine disorders Status: Acute (3) Hyperlipidemia associated with type 2 diabetes mellitus: Code(s): E11.69 - Type 2 diabetes mellitus with other specified complication; E78.5 - Hyperlipidemia, unspecified Status: Acute (4) Contraindication to anticoagulation therapy: Code(s): Z53.09 - Procedure and treatment not carried out because of other contraindication Status: Acute (5) Persistent atrial fibrillation: Code(s): I48.19 - Other persistent atrial fibrillation Status: Acute (6) CHF (congestive heart failure): Qualifiers: Heart failure chronicity: acute on chronic Heart failure type: diastolic Qualified Code(s): I50.33 - Acute on chronic diastolic (congestive) heart failure Code(s): I50.9 - Heart failure, unspecified Status: Acute (7) Recurrent falls: Code(s): R29.6 - Repeated falls Status: Acute (8) Hypertension: Code(s): I10 - Essential (primary) hypertension Status: Acute (9) Restless leg syndrome: Code(s): G25.81 - Restless legs syndrome Status: Acute (10) Tobacco dependence: Code(s): F17.200 - Nicotine dependence, unspecified, uncomplicated Status: Acute (11) Pure hypercholesterolemia, unspecified: Code(s): E78.00 - Pure hypercholesterolemia, unspecified Status: Acute (12) Chronic obstructive pulmonary disease, unspecified: Code(s): J44.9 - Chronic obstructive pulmonary disease, unspecified Status: Acute (13) Generalized anxiety disorder: Code(s): F41.1 - Generalized anxiety disorder Status: Acute (14) Major depressive disorder, recurrent, mild: Code(s): F33.0 - Major depressive disorder, recurrent, mild Status: Acute (15) Atherosclerotic heart disease of [place] coronary artery without angina pectoris: Code(s): I25.10 - Atherosclerotic heart disease of [place] coronary artery without angina pectoris Status: Acute (16) Chronic systolic (congestive) heart failure: Code(s): I50.22 - Chronic systolic (congestive) heart failure Status: Acute (17) Hypertensive heart disease with heart failure: Code(s): I11.0 - Hypertensive heart disease with heart failure Status: Acute (18) Insomnia: Code(s): G47.00 - Insomnia, unspecified Status: Acute (19) Peripheral neuropathy: Qualifiers: Peripheral neuropathy type: polyneuropathy associated with underlying disease Qualified Code(s): G63 - Polyneuropathy in diseases classified elsewhere Code(s): G62.9 - Polyneuropathy, unspecified Status: Acute (20) Obesity, unspecified: Code(s): E66.9 - Obesity, unspecified Status: Acute (21) Type 2 diabetes mellitus with diabetic polyneuropathy: Code(s): E11.42 - Type 2 diabetes mellitus with diabetic polyneuropathy Status: Acute (22) Nicotine dependence, cigarettes, with other nicotine-induced disorders: Code(s): F17.218 - Nicotine dependence, cigarettes, with other nicotine-induced disorders Status: Acute (23) Overactive bladder: Code(s): N32.81 - Overactive bladder Status: Acute Plan [age]-year-old female presented with chest pain. long-term resident. She was sleeping in her room when she heard a loud crash. Her roommate had fallen out of bed. Patient got up to try to help her roommate when she developed left-sided chest pain. Associated with nausea. States her legs were swollen a lot earlier this month but has improved now.
[2023-07-12] MEDS: LIDOCAINE 5% PATCH 1 PATCH TRANSDERM (10:40)
[2023-07-12] MEDS: MAGNESIUM SULF 2 GM/WATER 50ML 2 GM/50 ML BAG IVPB (10:41)
[2023-07-12] MEDS: FLUoxetine HCL 10 MG CAPSULE PO (10:41)
--- NOTE | 2023-07-12 11:01 | PM.CNNEP ---
Assessment and Plan Assessment and plan (1) Hyponatremia: Code(s): E87.1 - Hypo-osmolality and hyponatremia Status: Acute Assessment and Plan: suspect due to volume depletion however, possible pneumonia maybe playing a role already initiated on salt tablet therapy check TSH, cortisol, UA, and urine electrolytes follow repeat sodium levels (2) Hypokalemia: Code(s): E87.6 - Hypokalemia Status: Acute Assessment and Plan: probably related to volume depletion as well however, outpatient diuretic use could be partly to blame as well replete/replace as needed ensure magnesium is adequate given his history of DM, cannot discount a type 4 RTA (hypoaldo state) check renin and aldosterone follow repeat potassium levels (3) Hypertension: Code(s): I10 - Essential (primary) hypertension Status: Chronic Assessment and Plan: stable if not on the soft side BP medications with parameters follow trend of hemodynamics (4) Diabetes: Code(s): E11.9 - Type 2 diabetes mellitus without complications Status: Chronic Assessment and Plan: follow accu-cheks glycemic control per hospitalists I will continue follow the patient with you while she remains hospitalized and make further recommendations as needed. Thank you for allowing me to participate in the care this patient. History of Present Illness Reason for Consult Consult date: 07/12/23 Reason for consult: hyponatremia and hypokalemia Chief Complaint Chief complaint: Hypokalemia History of Present Illness Narrative: The patient is a 77-year-old female with a past medical history as outlined below who presented to [facility] Emergency Room for further evaluation of chest pain. The patient is a [facility] resident and she was sleeping in her bed when she heard her roommate fall. During this commotion when nursing staff were trying to help her roommate get up, she started having chest pain. She rated the chest pain as 4/10 in intensity and was localized to the anterior chest. she reported some radiation upward but not quite to her jaw or upper arms. Given this symptom, the snf staff called EMS and she was subsequently transferred to the emergency room for further evaluation In route to the ER, EMS gave the patient for aspirin and EKG done by EMS showed atrial fibrillation but no changes consistent with ischemia. By the time of her arrival to the emergency room, her chest pain seem to a dissipate and routine blood test demonstrated evidence of acute kidney injury/acute renal failure, hyponatremia, and hypokalemia with a potassium level at 2.0. She received aggressive IV fluid resuscitation as well as potassium replacement therapy in the emergency room. She was subsequently admitted to the hospital for further evaluation and therapy. Since her admission, her chest pain symptoms seem to be more related to a musculoskeletal etiology than acute coronary syndrome. Telemetry, EKG, and troponins did not show any evidence of any ongoing ischemia. Echocardiogram also did not demonstrate any changes concerning for ischemia. However, since her admission, she has had persistent hypokalemia and hyponatremia despite IV fluids and IV replacement. Her renal function has improved back to her normal baseline. Renal consultation was requested due to her hyponatremia and her hypokalemia. Both of these conditions appear to be somewhat mild and are technically improving by the trend of her labs since admission. The presumed etiology of both of these conditions is probably volume depletion given that she also had acute kidney injury/ acute renal failure on presentation. Furthermore, her renal function has normalized with IV fluids and her sodium level has been slowly improving as well. Prior to my evaluation, she was initiated on salt tablet therapy and remains on potassium replacement therapy as w
[2023-07-12 11:44] LABS: Glucose Point of Care 89 mg/dl (65-105)
[2023-07-12] MEDS: SODIUM CHLORIDE 500 MG TABLET 1000 MG PO ×2 (13:03→15:28)
[2023-07-12] MEDS: FUROSEMIDE INJ 40 MG/4 ML VIAL IV PUSH (13:07)
[2023-07-12] MEDS: metroNIDAZOLE 500 MG TABLET PO ×2 (13:49→20:09)
[2023-07-12] MEDS: cefTRIAXone 2 GM/NS 100 ML 2 GM/100 ML BAG IVPB (15:22)
[2023-07-12 15:25] LABS: Sodium Urine Random 77 meq/L
[2023-07-12 15:27] LABS: Creatinine Urine 13.3 mg/dL; Total Protein Urine Random 16 mg/dL; Urea Random Urine 83 MG/DL
[2023-07-12] MEDS: POTASSIUM CHLORIDE 20 MEQ PACKET (FOR LIQUID) 40 MEQ PO (15:27)
[2023-07-12 15:29] LABS: Creatinine Urine 12.8 mg/dL
[2023-07-12 15:39] LABS: Appearance Urine Cloudy (Clear); Bacteria Urine 1+ /hpf; Bilirubin Urine Negative (Negative); Blood Urine Trace (Negative); Color Urine Yellow (Yellow); Glucose Urine UA Negative (Negative); Ketones Urine Negative (Negative); Leukocyte Esterase Ur 3+ LEU/UL (Negative); Need Manual Microscopic Reviewed; Nitrate Urine Negative (Negative); Non Pathogenic Casts 0-2; Protein Urine Negative (Negative); Specific Grav Ur 1.005 (1.001-1.035); Squamous Epithelial Cell Urine None seen /hpf (Few); Urobilinogen Urine 0.2 mg/dL (<2.0); WBC Urine 51-100 /hpf; pH Urine 5.5 (5.0-9.0)
[2023-07-12 15:53] LABS: Add Urine Microscopic? YES
[2023-07-12 16:09] LABS: Eosinophil Urine None Seen % (None Seen); Urine Eos QC 2nd Tech Confirmed
[2023-07-12 16:36] LABS: Glucose Point of Care 102 mg/dl (65-105)
[2023-07-12] MEDS: ALBUTEROL SULFATE (*SP) AEROSOL 1 PUFF 2 PUFF INHALATION (18:15)
--- NOTE | 2023-07-12 18:48 | PC.NURSE ---
patient c/o sob, called RT got PRN neb. Gave xanax, she is very anxious, but O2 is 93% on room air. repositioned in bed.
[2023-07-12 20:24] LABS: Glucose Point of Care 131 mg/dl (65-105)
[2023-07-13] VITALS (15 sets, daily range): BP systolic 130–137; BP diastolic 60–78; PULSE 82–112; RESP 18–22; TEMP 36.4–37.1; O2SAT 84–98
[2023-07-13] MEDS: IPRATROPIUM BR 0.02% INH SOLN 0.5 MG/2.5 ML VIAL INHALATION ×4 (03:03→21:13)
[2023-07-13] MEDS: ALBUTEROL SULFATE NEB 2.5 MG/3 ML INH INHALATION ×4 (03:05→21:13)
[2023-07-13] MEDS: DOXYCYCLINE HYCLATE 100 MG TABLET PO ×2 (05:40→18:03)
[2023-07-13] MEDS: ALPRAZolam (*CRX) 0.5 MG TABLET PO ×2 (05:40→21:03)
[2023-07-13] MEDS: metroNIDAZOLE 500 MG TABLET PO ×3 (05:40→21:03)
[2023-07-13 06:32] LABS: Hematocrit 33.1 % (37.0-47.0); Hemoglobin 10.6 g/dL (12.0-15.0); Immature Platelet Fraction Pct 8.9 % (0.9-11.2); Mean Corpuscular Volume 87.3 fl (80-100); Mean Platelet Volume 11.1 fl (7.4-10.4); Platelet Count Result 111 k/mm3 (150-375); Red Blood Count 3.79 M/mm3 (4.2-5.4); Red Cell Distribution Width 16.2 % (11.5-14.5); White Blood Count 5.3 K/mm3 (4.5-10.0)
[2023-07-13 06:40] LABS: Alanine Aminotransferase 23 U/L (6-35); Albumin Level 3.4 g/dL (3.5-5.1); Alkaline Phosphatase 55 U/L (38-126); Anion Gap 8 mmol/L (8-16); Aspartate Amino Transferase 44 U/L (14-36); Bilirubin,Total 0.6 mg/dL (0.2-1.3); Blood Urea Nitrogen 15 mg/dL (7-17); Calcium 7.9 mg/dL (8.4-10.2); Carbon Dioxide 30 mmol/L (22-30); Chloride 90 mmol/L (98-107); Estimated CRCL calculation 46 ml/min; Estimated Glomerular Filt Rate 53; Glucose 77 mg/dL (65-110); Magnesium 1.5 mg/dL (1.6-2.3); Potassium 3.2 mmol/L (3.4-5.0); Sodium 128 mmol/L (137-145)
[2023-07-13] MEDS: PRAVASTATIN SODIUM 20 MG TABLET 40 MG PO (08:07)
[2023-07-13] MEDS: dilTIAZem HCL CD 240 MG CAP.24HR PO (08:07)
[2023-07-13] MEDS: CYANOCOBALAMIN 1,000 MCG TABLET 1000 MCG PO (08:07)
[2023-07-13] MEDS: FERROUS SULFATE 325 MG TABLET DR PO ×2 (08:07→16:57)
[2023-07-13] MEDS: ASPIRIN 81 MG ENTERIC TABLET PO (08:07)
[2023-07-13] MEDS: rOPINIRole HCL 1 MG TABLET PO ×2 (08:08→16:57)
[2023-07-13] MEDS: SODIUM CHLORIDE 500 MG TABLET 1000 MG PO ×3 (08:08→16:58)
[2023-07-13] MEDS: FLUoxetine HCL 10 MG CAPSULE PO (08:08)
[2023-07-13] MEDS: LIDOCAINE 5% PATCH 1 PATCH TRANSDERM (08:08)
[2023-07-13] MEDS: POTASSIUM CHLORIDE 20 MEQ PACKET (FOR LIQUID) 40 MEQ PO ×2 (08:08→16:57)
--- NOTE | 2023-07-13 11:05 | P.PNNP_ITS ---
Progress Note: A&P Assessment and Plan (1) Hyponatremia: Code(s): E87.1 - Hypo-osmolality and hyponatremia Status: Acute Assessment and Plan: * suspect due to volume depletion * however, possible pneumonia maybe playing a role * already initiated on salt tablet therapy * evaluation to date noted: * TSH and cortisol okay * urine electrolytes non-prerenal * SPEP/UPEP pending * follow repeat sodium levels (2) Hypokalemia: Code(s): E87.6 - Hypokalemia Status: Acute Assessment and Plan: * probably related to volume depletion as well * however, outpatient diuretic use could be partly to blame as well * replete/replace as needed * ensure magnesium is adequate * given his history of DM, cannot discount a type 4 RTA (hypoaldo state) * check renin and aldosterone * follow repeat potassium levels (3) Hypertension: Code(s): I10 - Essential (primary) hypertension Status: Chronic Assessment and Plan: * stable if not on the soft side * BP medications with parameters * follow trend of hemodynamics (4) Diabetes: Code(s): E11.9 - Type 2 diabetes mellitus without complications Status: Chronic Assessment and Plan: * follow accu-cheks * glycemic control per hospitalists Will continue to follow. Subjective Date/time seen: 07/13/23 11:05 Interval history: Follow-up for acute hyponatremia and hypokalemia. Sodium and potassium still remain low but any worse at this time; no apparent distress voiced at the time of my visit; per nursing, still not eating and drinking very well; no other issues/events overnight or earlier this AM; UA suggestive of UTI so antibiotics adjusted. Exam Narrative: General: elderly but WD/WN female in NAD Heart: normal S1 and S2; no rub Lungs: coarse at bases Abdomen: soft, nontender, nondistended, positive bowel sounds Extremities: no cyanosis or clubbing; no edema Skin: warm and dry Objective Data Vital Signs Vital Signs: Vital Signs Temp Pulse Resp BP Pulse Ox O2 Del Method 07/13/23 11:00 90 20 07/13/23 08:01 Room Air 07/13/23 08:34 112 H 22 H 07/13/23 08:21 104 H 20 07/13/23 08:21 94 Room Air 07/13/23 06:00 98.8 F 111 H 20 137/78 98 07/13/23 03:05 82 18 07/12/23 22:19 86 18 07/12/23 20:00 Room Air 07/12/23 22:08 84 18 07/12/23 22:00 98.6 F 103 H 18 110/63 96 Intake/Output Intake/Output: Intake & Output 07/10/23 07/11/23 07/12/23 07/13/23 23:59 23:59 23:59 23:59 Intake Total 1840 2550 1874 740 Output Total 1950 300 400 Balance 1421 037 5882 340 Meds/Results Medications: Active Medications Generic Name Dose Route Start Last Admin Trade Name Freq PRN Reason Stop Dose Admin Acetaminophen 650 mg 07/08/23 07:05 07/09/23 20:21 Acetaminophen 325 Mg Tablet PO 650 mg Q4H PRN Administration Mild Pain (1-3) Or Fever Al Hydrox/Mg Hydrox/Simethicone 30 ml 07/07/23 23:56 Mag Hydrox/Al Hydrox/Simeth 30 Ml Udc PO QID PRN Dyspepsia Albuterol 2 puff 07/08/23 07:05 01
--- NOTE | 2023-07-13 11:05 | PM.PNNEP ---
Progress Note: A&P Assessment and Plan (1) Hyponatremia: Code(s): E87.1 - Hypo-osmolality and hyponatremia Status: Acute Assessment and Plan: suspect due to volume depletion however, possible pneumonia maybe playing a role already initiated on salt tablet therapy evaluation to date noted: TSH and cortisol okay urine electrolytes non-prerenal SPEP/UPEP pending follow repeat sodium levels (2) Hypokalemia: Code(s): E87.6 - Hypokalemia Status: Acute Assessment and Plan: probably related to volume depletion as well however, outpatient diuretic use could be partly to blame as well replete/replace as needed ensure magnesium is adequate given his history of DM, cannot discount a type 4 RTA (hypoaldo state) check renin and aldosterone follow repeat potassium levels (3) Hypertension: Code(s): I10 - Essential (primary) hypertension Status: Chronic Assessment and Plan: stable if not on the soft side BP medications with parameters follow trend of hemodynamics (4) Diabetes: Code(s): E11.9 - Type 2 diabetes mellitus without complications Status: Chronic Assessment and Plan: follow accu-cheks glycemic control per hospitalists Will continue to follow. Subjective Date/time seen: 07/13/23 11:05 Interval history: Follow-up for acute hyponatremia and hypokalemia. Sodium and potassium still remain low but any worse at this time; no apparent distress voiced at the time of my visit; per nursing, still not eating and drinking very well; no other issues/events overnight or earlier this AM; UA suggestive of UTI so antibiotics adjusted. Exam Narrative: General: elderly but WD/WN female in NAD Heart: normal S1 and S2; no rub Lungs: coarse at bases Abdomen: soft, nontender, nondistended, positive bowel sounds Extremities: no cyanosis or clubbing; no edema Skin: warm and dry Objective Data Vital Signs Vital Signs: Vital Signs Temp Pulse Resp BP Pulse Ox O2 Del Method 07/13/23 11:00 90 20 07/13/23 08:01 Room Air 07/13/23 08:34 112 H 22 H 07/13/23 08:21 104 H 20 07/13/23 08:21 94 Room Air 07/13/23 06:00 98.8 F 111 H 20 137/78 98 07/13/23 03:05 82 18 07/12/23 22:19 86 18 07/12/23 20:00 Room Air 07/12/23 22:08 84 18 07/12/23 22:00 98.6 F 103 H 18 110/63 96 Intake/Output Intake/Output: Intake & Output 07/10/23 07/11/23 07/12/23 07/13/23 23:59 23:59 23:59 23:59 Intake Total 1840 2550 1874 740 Output Total 1950 300 400 Balance 7109 262 5594 340 Meds/Results Medications: Active Medications Generic Name Dose Route Start Last Admin Trade Name Freq PRN Reason Stop Dose Admin Acetaminophen 650 mg 07/08/23 07:05 07/09/23 20:21 Acetaminophen 325 Mg Tablet PO 650 mg Q4H PRN Administration Mild Pain (1-3) Or Fever Al Hydrox/Mg Hydrox/Simethicone 30 ml 07/07/23 23:56 Mag Hydrox/Al Hydrox/Simeth 30 Ml Udc PO QID PRN Dyspepsia Albuterol 2 puff 07/08/23 07:05 07/12/23 18:15 Albuterol Sulfate (*Sp) Aerosol 1 Puff INHALATION 2 puff QID PRN Administration shortness of breath or wheezing Albuterol 2.5 mg 07/09/23 14:00 07/13/23 13:12 Albuterol Sulfate Neb 2.5 Mg/3 Ml Inh INHALATION 2.5 mg Q6HRT KATERINA Administration Alprazolam 0.5 mg 07/10/23 12:26 07/13/23 05:40 Alprazolam (*Crx) 0.5 Mg Tablet PO 0.5 mg Q6HR PRN Administration Anxiety Aspirin 81 mg 07/09/23 09:00 07/13/23 08:07 Aspirin 81 Mg Enteric Tablet PO 81 mg QAM KATERINA Administration Cyanocobalamin 1,000 mcg 07/08/23 09:00 07/13/23 08:07 Cyanocobalamin 1,000 Mcg Tablet PO 1,000 mcg QAM KATERINA Administration Diltiazem HCl 240 mg 07/08/23 09:00 07/13/23 08:07 Diltiazem Hcl Cd 240 Mg Cap.24hr PO 240 mg DAILY KATERINA Administration Doxycycline Hyclate 100 mg 07/09/23 21:
[2023-07-13 11:28] LABS: Glucose Point of Care 72 mg/dl (65-105)
[2023-07-13 14:50] LABS: Glucose Point of Care 100 mg/dl (65-105)
--- NOTE | 2023-07-13 14:56 | P.PNIM_ITS ---
Progress Note: A&P Assessment and Plan (1) Hypertension associated with type 2 diabetes mellitus: Code(s): E11.59 - Type 2 diabetes mellitus with other circulatory complications; I15.2 - Hypertension secondary to endocrine disorders Status: Chronic (2) Hyperlipidemia associated with type 2 diabetes mellitus: Code(s): E11.69 - Type 2 diabetes mellitus with other specified complication; E78.5 - Hyperlipidemia, unspecified Status: Chronic (3) Contraindication to anticoagulation therapy: Code(s): Z53.09 - Procedure and treatment not carried out because of other contraindication Status: Chronic (4) Persistent atrial fibrillation: Code(s): I48.19 - Other persistent atrial fibrillation Status: Chronic (5) CHF (congestive heart failure): Qualifiers: Heart failure chronicity: acute on chronic Heart failure type: diastolic Qualified Code(s): I50.33 - Acute on chronic diastolic (congestive) heart failure Code(s): I50.9 - Heart failure, unspecified Status: Chronic Assessment and Plan: * EKG with atrial fibrillation left axis deviation intraventricular conduction delay with no acute ST-T changes. * Also has history of chronic atrial fibrillation. * not a candidate of for anticoagulation due to history of frequent falls and history of catastrophic GI bleed in the past. * currently on aspirin (6) Recurrent falls: Code(s): R29.6 - Repeated falls Status: Acute Assessment and Plan: * SNF (7) Hypertension: Code(s): I10 - Essential (primary) hypertension Status: Chronic Assessment and Plan: * stable, continue to monitor (8) Pure hypercholesterolemia, unspecified: Code(s): E78.00 - Pure hypercholesterolemia, unspecified Status: Chronic Assessment and Plan: * continue home statin (9) Chronic obstructive pulmonary disease, unspecified: Code(s): J44.9 - Chronic obstructive pulmonary disease, unspecified Status: Chronic Assessment and Plan: * Multifocal pneumonia * Increased interstitial patient infiltrate bilateral lower base, * continue doxycycline and ceftriaxone * Barium swallow test showed pharyngeal dysphagia with laryngeal penetration with potential for subsequent aspiration * modified diet per speech evaluation * Add Flagyl to cover anaerobic infection (10) Chronic systolic (congestive) heart failure: Code(s): I50.22 - Chronic systolic (congestive) heart failure Status: Chronic Assessment and Plan: ECHO showed: * Left ventricular systolic function is normal, estimated at 55-60%. * ?There is mildly increased left ventricular wall thickness. * ?Right ventricular chamber dimension is mildly enlarged. * ?Right ventricular systolic function is reduced. * ?Left atrial chamber dimension is severely enlarged. * ?Right atrial chamber dimension is mildly enlarged. * ?There is moderate mitral valve regurgitation. * ?There is mild tricuspid valve regurgitation. (11) Type 2 diabetes mellitus with diabetic polyneuropathy: Code(s): E11.42 - Type 2 diabetes mellitus with diabetic polyneuropathy Status: Chronic Assessment and Plan: * holding glipizide * PRN hypoglycemic protocol (12) Electrolyte abnormality: Code(s): E87.8 - Other disorders of electrolyte and fluid balance, not elsewhere classified Status: Acute Assessment and Plan: * SABIHA, hyponatremia, hypokalemia * SABIHA with creatinine of 1.9 on admission, now 1.0 * potassium chloride PO 40 BID
--- NOTE | 2023-07-13 14:56 | PM.IMPN ---
Progress Note: A&P Assessment and Plan (1) Hypertension associated with type 2 diabetes mellitus: Code(s): E11.59 - Type 2 diabetes mellitus with other circulatory complications; I15.2 - Hypertension secondary to endocrine disorders Status: Chronic (2) Hyperlipidemia associated with type 2 diabetes mellitus: Code(s): E11.69 - Type 2 diabetes mellitus with other specified complication; E78.5 - Hyperlipidemia, unspecified Status: Chronic (3) Contraindication to anticoagulation therapy: Code(s): Z53.09 - Procedure and treatment not carried out because of other contraindication Status: Chronic (4) Persistent atrial fibrillation: Code(s): I48.19 - Other persistent atrial fibrillation Status: Chronic (5) CHF (congestive heart failure): Qualifiers: Heart failure chronicity: acute on chronic Heart failure type: diastolic Qualified Code(s): I50.33 - Acute on chronic diastolic (congestive) heart failure Code(s): I50.9 - Heart failure, unspecified Status: Chronic Assessment and Plan: EKG with atrial fibrillation left axis deviation intraventricular conduction delay with no acute ST-T changes. Also has history of chronic atrial fibrillation. not a candidate of for anticoagulation due to history of frequent falls and history of catastrophic GI bleed in the past. currently on aspirin (6) Recurrent falls: Code(s): R29.6 - Repeated falls Status: Acute Assessment and Plan: SNF (7) Hypertension: Code(s): I10 - Essential (primary) hypertension Status: Chronic Assessment and Plan: stable, continue to monitor (8) Pure hypercholesterolemia, unspecified: Code(s): E78.00 - Pure hypercholesterolemia, unspecified Status: Chronic Assessment and Plan: continue home statin (9) Chronic obstructive pulmonary disease, unspecified: Code(s): J44.9 - Chronic obstructive pulmonary disease, unspecified Status: Chronic Assessment and Plan: Multifocal pneumonia Increased interstitial patient infiltrate bilateral lower base, continue doxycycline and ceftriaxone Barium swallow test showed pharyngeal dysphagia with laryngeal penetration with potential for subsequent aspiration modified diet per speech evaluation Add Flagyl to cover anaerobic infection (10) Chronic systolic (congestive) heart failure: Code(s): I50.22 - Chronic systolic (congestive) heart failure Status: Chronic Assessment and Plan: ECHO showed: Left ventricular systolic function is normal, estimated at 55-60%. ?There is mildly increased left ventricular wall thickness. ?Right ventricular chamber dimension is mildly enlarged. ?Right ventricular systolic function is reduced. ?Left atrial chamber dimension is severely enlarged. ?Right atrial chamber dimension is mildly enlarged. ?There is moderate mitral valve regurgitation. ?There is mild tricuspid valve regurgitation. (11) Type 2 diabetes mellitus with diabetic polyneuropathy: Code(s): E11.42 - Type 2 diabetes mellitus with diabetic polyneuropathy Status: Chronic Assessment and Plan: holding glipizide PRN hypoglycemic protocol (12) Electrolyte abnormality: Code(s): E87.8 - Other disorders of electrolyte and fluid balance, not elsewhere classified Status: Acute Assessment and Plan: SABIHA, hyponatremia, hypokalemia SABIHA with creatinine of 1.9 on admission, now 1.0 potassium chloride PO 40 BID sodium chloride 1 g t.i.d. Consult welcome center agent for evaluation treatment Plan Chest pain is reproducible most likely musculoskeletal in origin. GIB Patient did have dark stool in the ER hemoccult test was negative Monitor H& H and remains stable. PPI started. Subjective Date/time seen: 07/13/23 14:56 Interval history: Patient in no acute distress this morning. Will continue
[2023-07-13] MEDS: cefTRIAXone 2 GM/NS 100 ML 2 GM/100 ML BAG IVPB (15:59)
[2023-07-13 16:28] LABS: Glucose Point of Care 117 mg/dl (65-105)
[2023-07-13] MEDS: LACTATED RINGERS 1,000 ML 75 ML IV CONT (16:57)
[2023-07-13] MEDS: ALBUTEROL SULFATE (*SP) AEROSOL 1 PUFF 2 PUFF INHALATION (17:57)
[2023-07-13] MEDS: ACETAMINOPHEN 325 MG TABLET 650 MG PO (21:03)
[2023-07-13 21:29] LABS: Glucose Point of Care 87 mg/dl (65-105)
[2023-07-14] VITALS (8 sets, daily range): BP systolic 104–136; BP diastolic 64–77; PULSE 73–100; RESP 16–22; TEMP 36.4–36.7; O2SAT 94–95
[2023-07-14] MEDS: DOXYCYCLINE HYCLATE 100 MG TABLET PO ×2 (05:57→18:38)
[2023-07-14] MEDS: ALPRAZolam (*CRX) 0.5 MG TABLET PO ×2 (05:57→21:19)
[2023-07-14] MEDS: metroNIDAZOLE 500 MG TABLET PO ×3 (05:57→21:19)
[2023-07-14 06:50] LABS: Hematocrit 34.3 % (37.0-47.0); Hemoglobin 10.9 g/dL (12.0-15.0); Immature Platelet Fraction Pct 9.1 % (0.9-11.2); Mean Corpuscular HGB Conc 31.8 g/dl (32-36); Mean Corpuscular Hemoglobin 27.5 pg (26-34); Mean Corpuscular Volume 86.6 fl (80-100); Mean Platelet Volume 10.4 fl (7.4-10.4); Platelet Count Result 105 k/mm3 (150-375); Red Blood Count 3.96 M/mm3 (4.2-5.4); Red Cell Distribution Width 16.1 % (11.5-14.5)
[2023-07-14 06:58] LABS: Alanine Aminotransferase 23 U/L (6-35); Albumin Level 3.4 g/dL (3.5-5.1); Alkaline Phosphatase 55 U/L (38-126); Anion Gap 9 mmol/L (8-16); Aspartate Amino Transferase 43 U/L (14-36); Bilirubin,Total 0.7 mg/dL (0.2-1.3); Blood Urea Nitrogen 13 mg/dL (7-17); Calcium 8.5 mg/dL (8.4-10.2); Carbon Dioxide 29 mmol/L (22-30); Chloride 95 mmol/L (98-107); Estimated CRCL calculation 51 ml/min; Estimated Glomerular Filt Rate 60; Glucose 66 mg/dL (65-110); Magnesium 1.7 mg/dL (1.6-2.3); Phosphorus 2.4 mg/dL (2.5-4.5); Potassium 3.8 mmol/L (3.4-5.0); Sodium 133 mmol/L (137-145)
[2023-07-14 08:34] LABS: Glucose Point of Care 66 mg/dl (65-105)
[2023-07-14] MEDS: ALBUTEROL SULFATE NEB 2.5 MG/3 ML INH INHALATION ×3 (08:53→21:20)
[2023-07-14] MEDS: IPRATROPIUM BR 0.02% INH SOLN 0.5 MG/2.5 ML VIAL INHALATION ×3 (08:53→21:20)
[2023-07-14] MEDS: PRAVASTATIN SODIUM 20 MG TABLET 40 MG PO (09:24)
[2023-07-14] MEDS: ASPIRIN 81 MG ENTERIC TABLET PO (09:25)
[2023-07-14] MEDS: CYANOCOBALAMIN 1,000 MCG TABLET 1000 MCG PO (09:25)
[2023-07-14] MEDS: rOPINIRole HCL 1 MG TABLET PO ×2 (09:25→17:15)
[2023-07-14] MEDS: SODIUM CHLORIDE 500 MG TABLET 1000 MG PO ×3 (09:25→17:15)
[2023-07-14] MEDS: FLUoxetine HCL 10 MG CAPSULE PO (09:25)
[2023-07-14] MEDS: dilTIAZem HCL CD 240 MG CAP.24HR PO (09:26)
[2023-07-14 09:27] LABS: Glucose Point of Care 66 mg/dl (65-105)
[2023-07-14] MEDS: FERROUS SULFATE 325 MG TABLET DR PO ×2 (09:29→17:15)
[2023-07-14 09:43] LABS: Glucose Point of Care 71 mg/dl (65-105)
--- NOTE | 2023-07-14 11:50 | P.PNNP_ITS ---
Progress Note: A&P Assessment and Plan (1) Hyponatremia: Code(s): E87.1 - Hypo-osmolality and hyponatremia Status: Acute Assessment and Plan: * improvement noted * suspect due to volume depletion * however, possible pneumonia maybe playing a role * already initiated on salt tablet therapy * evaluation to date noted: * TSH and cortisol okay * urine electrolytes non-prerenal * SPEP/UPEP pending * follow repeat sodium levels (2) Hypokalemia: Code(s): E87.6 - Hypokalemia Status: Acute Assessment and Plan: * probably related to volume depletion as well * however, outpatient diuretic use could be partly to blame as well * replete/replace as needed * ensure magnesium is adequate * given his history of DM, cannot discount a type 4 RTA (hypoaldo state) * renin and aldosterone pending * follow repeat potassium levels (3) Hypertension: Code(s): I10 - Essential (primary) hypertension Status: Chronic Assessment and Plan: * stable if not on the soft side * BP medications with parameters * follow trend of hemodynamics (4) Diabetes: Code(s): E11.9 - Type 2 diabetes mellitus without complications Status: Chronic Assessment and Plan: * follow accu-cheks * glycemic control per hospitalists Will continue to follow. Subjective Date/time seen: 07/14/23 11:50 Interval history: Follow-up for acute hyponatremia and hypokalemia. Sodium improving as well as potassium level but her oral intake remains suboptimal; started on gentle dextrose IVFs given her ongoing poor oral intake; VRE UTI noted so started on linezolid; no apparent distress noted at the time of my visit. Exam Narrative: General: elderly but WD/WN female in NAD Heart: normal S1 and S2; no rub Lungs: coarse at bases Abdomen: soft, nontender, nondistended, positive bowel sounds Extremities: no cyanosis or clubbing; no edema Skin: warm and dry Objective Data Vital Signs Vital Signs: Vital Signs Temp Pulse Resp BP Pulse Ox O2 Del Method O2 Flow Rate 07/14/23 11:31 98.1 F 100 18 121/74 94 07/14/23 09:22 Room Air 07/14/23 09:11 20 07/14/23 08:53 78 20 07/14/23 06:00 97.8 F 93 20 136/77 95 07/13/23 21:53 97.9 F 90 20 134/64 97 07/13/23 20:00 94 Nasal Cannula 2 07/13/23 21:22 85 20 07/13/23 21:18 92 Room Air 07/13/23 21:13 86 20 07/13/23 17:57 84 20 Intake/Output Intake/Output: Intake & Output 07/11/23 07/12/23 07/13/23 07/14/23 23:59 23:59 23:59 23:59 Intake Total 2550 1874 1560 540 Output Total 1950 300 600 Balance 600 1574 960 540 Meds/Results Medications: Active Medications Generic Name Dose Route Start Last Admin Trade Name Freq PRN Reason Stop Dose Admin Acetaminophen 650 mg 07/08/23 07:05 07/13/23 21:03 Acetaminophen 325 Mg Tablet PO 650 mg Q4H PRN Administration Mild Pain (1-3) Or Fever Al Hydrox/Mg Hydrox/Simethicone 30 ml 07/07/23 23:56 Mag Hydrox/Al Hydrox/Simeth 30 Ml Udc PO QID PRN Dyspepsia Albute
--- NOTE | 2023-07-14 11:50 | PM.PNNEP ---
Progress Note: A&P Assessment and Plan (1) Hyponatremia: Code(s): E87.1 - Hypo-osmolality and hyponatremia Status: Acute Assessment and Plan: improvement noted suspect due to volume depletion however, possible pneumonia maybe playing a role already initiated on salt tablet therapy evaluation to date noted: TSH and cortisol okay urine electrolytes non-prerenal SPEP/UPEP pending follow repeat sodium levels (2) Hypokalemia: Code(s): E87.6 - Hypokalemia Status: Acute Assessment and Plan: probably related to volume depletion as well however, outpatient diuretic use could be partly to blame as well replete/replace as needed ensure magnesium is adequate given his history of DM, cannot discount a type 4 RTA (hypoaldo state) renin and aldosterone pending follow repeat potassium levels (3) Hypertension: Code(s): I10 - Essential (primary) hypertension Status: Chronic Assessment and Plan: stable if not on the soft side BP medications with parameters follow trend of hemodynamics (4) Diabetes: Code(s): E11.9 - Type 2 diabetes mellitus without complications Status: Chronic Assessment and Plan: follow accu-cheks glycemic control per hospitalists Will continue to follow. Subjective Date/time seen: 07/14/23 11:50 Interval history: Follow-up for acute hyponatremia and hypokalemia. Sodium improving as well as potassium level but her oral intake remains suboptimal; started on gentle dextrose IVFs given her ongoing poor oral intake; VRE UTI noted so started on linezolid; no apparent distress noted at the time of my visit. Exam Narrative: General: elderly but WD/WN female in NAD Heart: normal S1 and S2; no rub Lungs: coarse at bases Abdomen: soft, nontender, nondistended, positive bowel sounds Extremities: no cyanosis or clubbing; no edema Skin: warm and dry Objective Data Vital Signs Vital Signs: Vital Signs Temp Pulse Resp BP Pulse Ox O2 Del Method O2 Flow Rate 07/14/23 11:31 98.1 F 100 18 121/74 94 07/14/23 09:22 Room Air 07/14/23 09:11 20 07/14/23 08:53 78 20 07/14/23 06:00 97.8 F 93 20 136/77 95 07/13/23 21:53 97.9 F 90 20 134/64 97 07/13/23 20:00 94 Nasal Cannula 2 07/13/23 21:22 85 20 07/13/23 21:18 92 Room Air 07/13/23 21:13 86 20 07/13/23 17:57 84 20 Intake/Output Intake/Output: Intake & Output 07/11/23 07/12/23 07/13/23 07/14/23 23:59 23:59 23:59 23:59 Intake Total 2550 1874 1560 540 Output Total 1950 300 600 Balance 600 1574 960 540 Meds/Results Medications: Active Medications Generic Name Dose Route Start Last Admin Trade Name Freq PRN Reason Stop Dose Admin Acetaminophen 650 mg 07/08/23 07:05 07/13/23 21:03 Acetaminophen 325 Mg Tablet PO 650 mg Q4H PRN Administration Mild Pain (1-3) Or Fever Al Hydrox/Mg Hydrox/Simethicone 30 ml 07/07/23 23:56 Mag Hydrox/Al Hydrox/Simeth 30 Ml Udc PO QID PRN Dyspepsia Albuterol 2 puff 07/08/23 07:05 07/13/23 17:57 Albuterol Sulfate (*Sp) Aerosol 1 Puff INHALATION 2 puff QID PRN Administration shortness of breath or wheezing Albuterol 2.5 mg 07/09/23 14:00 07/14/23 15:33 Albuterol Sulfate Neb 2.5 Mg/3 Ml Inh INHALATION 2.5 mg Q6HRT KATERINA Administration Alprazolam 0.5 mg 07/10/23 12:26 07/14/23 05:57 Alprazolam (*Crx) 0.5 Mg Tablet PO 0.5 mg Q6HR PRN Administration Anxiety Aspirin 81 mg 07/09/23 09:00 07/14/23 09:25 Aspirin 81 Mg Enteric Tablet PO 81 mg QAM KATERINA Administration Cyanocobalamin 1,000 mcg 07/08/23 09:00 07/14/23 09:25 Cyanocobalamin 1,000 Mcg Tablet PO 1,000 mcg QAM KATERINA Administration Diltiazem HCl 240 mg 07/08/23 09:00 07/14/23 09:26 Diltiazem Hcl Cd 240 Mg Cap.24hr PO 240 mg DAILY KATERINA Administration Doxycycline Hycl
[2023-07-14 11:53] LABS: Glucose Point of Care 89 mg/dl (65-105)
--- NOTE | 2023-07-14 12:07 | PM.CNCAR ---
Assessment and Plan Assessment and plan (1) Chest pain: Code(s): R07.9 - Chest pain, unspecified Status: Acute Assessment and Plan: 77-year-old female with CAD, history of SD, status post remote PCI of LAD-intervention report not available; longstanding persistent atrial fibrillation (reportedly not on anticoagulation due to history of GI bleed and frequent falls), pulmonary hypertension, diabetes mellitus, CKD. -patient has been complaining of chest discomfort. EKG shows atrial fibrillation with controlled ventricular response, old anteroseptal and inferior infarct. Serial troponins negative. Pharmacological MPI to check for any significant myocardial ischemia and risk stratification. Due to patient's anemia and history of GI bleed, will have a high threshold for invasive workup. -continue aspirin, statin. (2) Persistent atrial fibrillation: Code(s): I48.19 - Other persistent atrial fibrillation Status: Chronic Assessment and Plan: Rate control with diltiazem. Reportedly not on anticoagulation due to history of GI bleed and frequent falls. Outpatient evaluation to check candidacy for left atrial appendage closure. (3) Recurrent falls: Code(s): R29.6 - Repeated falls Status: Acute Assessment and Plan: PT OT, fall precautions. History of Present Illness History of Present Illness Consult date/time: 07/14/23 12:07 Requesting physician: Jennifer Fonseca APRN Consult reason: Other ( Chronic AFib, worsening echo ) Reason For Visit: Hypokalemia Narrative: Date of consult: 07/14/2023 Chief complaint: Chest pain HPI: 77-year-old female with CAD, history of SD, status post remote PCI of LAD-intervention report not available; longstanding persistent atrial fibrillation (reportedly not on anticoagulation due to history of GI bleed and frequent falls), pulmonary hypertension, diabetes mellitus, CKD. Patient follows up with Dr. Bhatia for cardiovascular care. She admitted to [facility] from custodial on 07/07/2023 with complaints of chest discomfort. Patient has immobile status, uses wheelchair for ambulation. She is unable to give detailed information about her symptoms of chest discomfort. She denies significant shortness of breath at rest. No palpitations, dizziness syncope. She reports generalized fatigue. EKG on my personal interpretation showed atrial fibrillation with controlled ventricular response, old anteroseptal and inferior infarct. Serial troponins negative. TSH within normal limits. Chest x-ray at presentation-Mild interstitial edema versus chronic interstitial/senescent change. Echo from 07/09/2023 showed LVEF 55-60%, severe left atrial enlargement, RV dysfunction, moderate MR. Modified barium swallow study on 07/11/2023-Pharyngeal dysphagia with laryngeal penetration with potential for subsequent aspiration. Review of Systems Review of Systems: General: Positive for generalized fatigue Psychological: Positive for anxiety, depression Ophthalmic: negative for loss of vision ENT: Negative for epistaxis, headaches Allergy and immunology: Negative for hives, nasal congestion Hematologic and lymphatic: Negative for overt bleeding problems Endocrine: Negative for hot flashes, palpitations Respiratory: Negative for cough, hemoptysis Cardiovascular: Positive for chest pain Gastrointestinal: Negative for abdominal pain, nausea, vomiting, hematochezia Musculoskeletal: Positive for joint pain and gait instability Neurological: Positive for weakness Dermatological: Negative for rash, skin discoloration PMFSH Past Medical History Medical History Atherosclerotic heart disease of [place] coronary artery without angina pectoris CHF (congestive heart failure) Chronic atrial fibrillation, unspecified Chronic obstructive pulmonary disease, unspecified Chronic systolic (congestive) heart failure
[2023-07-14] MEDS: LINEZOLID 600 MG/300 ML 600 MG/300 ML SOLN 300 MG IVPB ×2 (12:29→21:19)
[2023-07-14 13:36] LABS: Toxigenic C. Diff NEGATIVE (NEGATIVE)
--- NOTE | 2023-07-14 15:26 | P.PNIM_ITS ---
Progress Note: A&P Assessment and Plan (1) Hypertension associated with type 2 diabetes mellitus: Code(s): E11.59 - Type 2 diabetes mellitus with other circulatory complications; I15.2 - Hypertension secondary to endocrine disorders Status: Chronic (2) Hyperlipidemia associated with type 2 diabetes mellitus: Code(s): E11.69 - Type 2 diabetes mellitus with other specified complication; E78.5 - Hyperlipidemia, unspecified Status: Chronic (3) Contraindication to anticoagulation therapy: Code(s): Z53.09 - Procedure and treatment not carried out because of other contraindication Status: Chronic (4) Persistent atrial fibrillation: Code(s): I48.19 - Other persistent atrial fibrillation Status: Chronic (5) CHF (congestive heart failure): Qualifiers: Heart failure chronicity: acute on chronic Heart failure type: diastolic Qualified Code(s): I50.33 - Acute on chronic diastolic (congestive) heart failure Code(s): I50.9 - Heart failure, unspecified Status: Chronic Assessment and Plan: * EKG with atrial fibrillation left axis deviation intraventricular conduction delay with no acute ST-T changes. * Also has history of chronic atrial fibrillation. * not a candidate of for anticoagulation due to history of frequent falls and history of catastrophic GI bleed in the past. * currently on aspirin * cardiology consulted - continue current regimen; may evaluate outpatient for candidacy for left atrial appendage closure (6) Recurrent falls: Code(s): R29.6 - Repeated falls Status: Acute Assessment and Plan: * SNF * pt/ot (7) Hypertension: Code(s): I10 - Essential (primary) hypertension Status: Chronic Assessment and Plan: * stable, continue to monitor (8) Pure hypercholesterolemia, unspecified: Code(s): E78.00 - Pure hypercholesterolemia, unspecified Status: Chronic Assessment and Plan: * continue home statin (9) Chronic obstructive pulmonary disease, unspecified: Code(s): J44.9 - Chronic obstructive pulmonary disease, unspecified Status: Chronic Assessment and Plan: * Multifocal pneumonia * Increased interstitial patient infiltrate bilateral lower base * continue doxycycline * Barium swallow test showed pharyngeal dysphagia with laryngeal penetration with potential for subsequent aspiration * modified diet per speech evaluation * Add Flagyl to cover anaerobic infection (10) Chronic systolic (congestive) heart failure: Code(s): I50.22 - Chronic systolic (congestive) heart failure Status: Chronic Assessment and Plan: ECHO showed: * Left ventricular systolic function is normal, estimated at 55-60%. * ?There is mildly increased left ventricular wall thickness. * ?Right ventricular chamber dimension is mildly enlarged. * ?Right ventricular systolic function is reduced. * ?Left atrial chamber dimension is severely enlarged. * ?Right atrial chamber dimension is mildly enlarged. * ?There is moderate mitral valve regurgitation. * ?There is mild tricuspid valve regurgitation. (11) Type 2 diabetes mellitus with diabetic polyneuropathy: Code(s): E11.42 - Type 2 diabetes mellitus with diabetic polyneuropathy Status: Chronic Assessment and Plan: * holding glipizide * PRN hypoglycemic protocol * gentle D5W as she is fragile (12) Electrolyte abnormality: Code(s): E87.8 - Other disorders of electrolyte and fluid balance, not elsewhere classified Status: Acu
--- NOTE | 2023-07-14 15:26 | PM.IMPN ---
Progress Note: A&P Assessment and Plan (1) Hypertension associated with type 2 diabetes mellitus: Code(s): E11.59 - Type 2 diabetes mellitus with other circulatory complications; I15.2 - Hypertension secondary to endocrine disorders Status: Chronic (2) Hyperlipidemia associated with type 2 diabetes mellitus: Code(s): E11.69 - Type 2 diabetes mellitus with other specified complication; E78.5 - Hyperlipidemia, unspecified Status: Chronic (3) Contraindication to anticoagulation therapy: Code(s): Z53.09 - Procedure and treatment not carried out because of other contraindication Status: Chronic (4) Persistent atrial fibrillation: Code(s): I48.19 - Other persistent atrial fibrillation Status: Chronic (5) CHF (congestive heart failure): Qualifiers: Heart failure chronicity: acute on chronic Heart failure type: diastolic Qualified Code(s): I50.33 - Acute on chronic diastolic (congestive) heart failure Code(s): I50.9 - Heart failure, unspecified Status: Chronic Assessment and Plan: EKG with atrial fibrillation left axis deviation intraventricular conduction delay with no acute ST-T changes. Also has history of chronic atrial fibrillation. not a candidate of for anticoagulation due to history of frequent falls and history of catastrophic GI bleed in the past. currently on aspirin cardiology consulted - continue current regimen; may evaluate outpatient for candidacy for left atrial appendage closure (6) Recurrent falls: Code(s): R29.6 - Repeated falls Status: Acute Assessment and Plan: SNF pt/ot (7) Hypertension: Code(s): I10 - Essential (primary) hypertension Status: Chronic Assessment and Plan: stable, continue to monitor (8) Pure hypercholesterolemia, unspecified: Code(s): E78.00 - Pure hypercholesterolemia, unspecified Status: Chronic Assessment and Plan: continue home statin (9) Chronic obstructive pulmonary disease, unspecified: Code(s): J44.9 - Chronic obstructive pulmonary disease, unspecified Status: Chronic Assessment and Plan: Multifocal pneumonia Increased interstitial patient infiltrate bilateral lower base continue doxycycline Barium swallow test showed pharyngeal dysphagia with laryngeal penetration with potential for subsequent aspiration modified diet per speech evaluation Add Flagyl to cover anaerobic infection (10) Chronic systolic (congestive) heart failure: Code(s): I50.22 - Chronic systolic (congestive) heart failure Status: Chronic Assessment and Plan: ECHO showed: Left ventricular systolic function is normal, estimated at 55-60%. ?There is mildly increased left ventricular wall thickness. ?Right ventricular chamber dimension is mildly enlarged. ?Right ventricular systolic function is reduced. ?Left atrial chamber dimension is severely enlarged. ?Right atrial chamber dimension is mildly enlarged. ?There is moderate mitral valve regurgitation. ?There is mild tricuspid valve regurgitation. (11) Type 2 diabetes mellitus with diabetic polyneuropathy: Code(s): E11.42 - Type 2 diabetes mellitus with diabetic polyneuropathy Status: Chronic Assessment and Plan: holding glipizide PRN hypoglycemic protocol gentle D5W as she is fragile (12) Electrolyte abnormality: Code(s): E87.8 - Other disorders of electrolyte and fluid balance, not elsewhere classified Status: Acute Assessment and Plan: SABIHA, hyponatremia, hypokalemia SABIHA with creatinine of 1.9 on admission, now 1.0 potassium chloride PO 40 BID sodium chloride 1 g t.i.d. Consult operations architect for evaluation treatment (13) UTI (urinary tract infection): Code(s): N39.0 - Urinary tract infection, site not specified Status: Acute Assessment and Plan: Urine culture positive for Vanco
[2023-07-14] MEDS: DEXTROSE 5%/0.9% SOD CHL 1,000 ML 50 ML IV CONT (15:47)
[2023-07-14] MEDS: POTASSIUM CHLORIDE 20 MEQ PACKET (FOR LIQUID) 40 MEQ PO (17:14)
[2023-07-14 17:25] LABS: Glucose Point of Care 110 mg/dl (65-105)
[2023-07-14 21:06] LABS: Glucose Point of Care 115 mg/dl (65-105)
[2023-07-14] MEDS: SALINE LOCK FLUSH 10 ML IV PUSH (21:20)
[2023-07-15] VITALS (11 sets, daily range): BP systolic 113–134; BP diastolic 59–64; PULSE 78–97; RESP 18–21; TEMP 35.7–36.2; O2SAT 92–96
[2023-07-15 00:17] LABS: Glucose Point of Care 73 mg/dl (65-105)
[2023-07-15] MEDS: LOPERAMIDE HCL 2 MG CAPSULE 4 MG PO (02:10)
[2023-07-15] MEDS: IPRATROPIUM BR 0.02% INH SOLN 0.5 MG/2.5 ML VIAL INHALATION ×4 (02:10→20:08)
[2023-07-15] MEDS: ALBUTEROL SULFATE NEB 2.5 MG/3 ML INH INHALATION ×4 (02:10→20:08)
[2023-07-15] MEDS: ALPRAZolam (*CRX) 0.5 MG TABLET PO ×2 (03:23→21:30)
[2023-07-15] MEDS: ACETAMINOPHEN 325 MG TABLET 650 MG PO (03:23)
[2023-07-15] MEDS: SALINE LOCK FLUSH 10 ML IV PUSH ×3 (03:26→20:29)
[2023-07-15] MEDS: metroNIDAZOLE 500 MG TABLET PO (05:45)
[2023-07-15] MEDS: DOXYCYCLINE HYCLATE 100 MG TABLET PO (05:45)
[2023-07-15 06:06] LABS: Hematocrit 30.5 % (37.0-47.0); Hemoglobin 9.7 g/dL (12.0-15.0); Immature Platelet Fraction Pct 8.6 % (0.9-11.2); Mean Corpuscular HGB Conc 31.8 g/dl (32-36); Mean Corpuscular Hemoglobin 28.3 pg (26-34); Mean Corpuscular Volume 88.9 fl (80-100); Platelet Count Result 114 k/mm3 (150-375); Red Blood Count 3.43 M/mm3 (4.2-5.4); Red Cell Distribution Width 16.3 % (11.5-14.5); White Blood Count 3.3 K/mm3 (4.5-10.0)
[2023-07-15 06:19] LABS: Alanine Aminotransferase 19 U/L (6-35); Albumin Level 2.9 g/dL (3.5-5.1); Alkaline Phosphatase 51 U/L (38-126); Anion Gap 5 mmol/L (8-16); Aspartate Amino Transferase 35 U/L (14-36); Bilirubin,Total 0.6 mg/dL (0.2-1.3); Blood Urea Nitrogen 8 mg/dL (7-17); Calcium 8.2 mg/dL (8.4-10.2); Carbon Dioxide 28 mmol/L (22-30); Chloride 99 mmol/L (98-107); Estimated CRCL calculation 57 ml/min; Estimated Glomerular Filt Rate > 60; Glucose 95 mg/dL (65-110); Magnesium 1.6 mg/dL (1.6-2.3); Phosphorus 2.2 mg/dL (2.5-4.5); Potassium 3.4 mmol/L (3.4-5.0); Sodium 132 mmol/L (137-145)
[2023-07-15 07:29] LABS: Glucose Point of Care 91 mg/dl (65-105)
[2023-07-15] MEDS: LINEZOLID 600 MG/300 ML 600 MG/300 ML SOLN 300 MG IVPB (08:52)
[2023-07-15] MEDS: dilTIAZem HCL CD 240 MG CAP.24HR PO (10:13)
[2023-07-15] MEDS: ASPIRIN 81 MG ENTERIC TABLET PO (10:13)
--- NOTE | 2023-07-15 11:20 | PC.NURSE ---
Called Barbara Martinez and told her that pt is refusing lexiscan. This nurse cancelled the scan per Barbara Martinez.
--- NOTE | 2023-07-15 11:26 | PM.PNNEP ---
Progress Note: A&P Assessment and Plan (1) Hyponatremia: Code(s): E87.1 - Hypo-osmolality and hyponatremia Status: Acute Assessment and Plan: improvement noted suspect due to volume depletion however, possible pneumonia maybe playing a role on salt tablet therapy -- would wean off as tolerated evaluation to date noted: TSH and cortisol okay urine electrolytes non-prerenal SPEP/UPEP pending follow repeat sodium levels (2) Hypokalemia: Code(s): E87.6 - Hypokalemia Status: Acute Assessment and Plan: probably related to volume depletion as well however, outpatient diuretic use could be partly to blame as well replete/replace as needed ensure magnesium is adequate given his history of DM, cannot discount a type 4 RTA (hypoaldo state) renin and aldosterone pending follow repeat potassium levels (3) Hypertension: Code(s): I10 - Essential (primary) hypertension Status: Chronic Assessment and Plan: stable if not on the soft side BP medications with parameters follow trend of hemodynamics (4) Diabetes: Code(s): E11.9 - Type 2 diabetes mellitus without complications Status: Chronic Assessment and Plan: follow accu-cheks glycemic control per hospitalists Not much else to add from renal perspective -- will continue to follow from a distance. Subjective Date/time seen: 07/15/23 11:26 Interval history: Follow-up for acute hyponatremia and hypokalemia. Electroytes seems to be improving/stabilizing; no apparent distress noted at the time of my visit; tolerating IVFs in the last 24 hours; no other issues/events overnight or earlier this AM. Exam Narrative: General: elderly but WD/WN female in NAD Heart: normal S1 and S2; no rub Lungs: coarse at bases Abdomen: soft, nontender, nondistended, positive bowel sounds Extremities: no cyanosis or clubbing; no edema Skin: warm and intact Objective Data Vital Signs Vital Signs: Vital Signs Temp Pulse Resp BP Pulse Ox O2 Del Method 07/15/23 09:55 79 20 07/15/23 09:43 81 20 07/15/23 04:30 97.2 F L 84 18 114/64 92 07/15/23 02:16 78 21 H 07/14/23 20:00 Room Air 07/14/23 21:26 85 22 H 07/14/23 20:57 97.5 F L 85 16 104/64 94 07/14/23 15:50 73 22 H 07/14/23 15:34 86 22 H 07/14/23 14:31 98.1 F 100 18 121/74 94 Intake/Output Intake/Output: Intake & Output 07/12/23 07/13/23 07/14/23 07/15/23 23:59 23:59 23:59 23:59 Intake Total 1874 1560 1080 300 Output Total 300 600 Balance 4359 930 4750 300 Meds/Results Medications: Active Medications Generic Name Dose Route Start Last Admin Trade Name Freq PRN Reason Stop Dose Admin Acetaminophen 650 mg 07/08/23 07:05 07/15/23 03:23 Acetaminophen 325 Mg Tablet PO 650 mg Q4H PRN Administration Mild Pain (1-3) Or Fever Al Hydrox/Mg Hydrox/Simethicone 30 ml 07/07/23 23:56 Mag Hydrox/Al Hydrox/Simeth 30 Ml Udc PO QID PRN Dyspepsia Albuterol 2 puff 07/08/23 07:05 07/13/23 17:57 Albuterol Sulfate (*Sp) Aerosol 1 Puff INHALATION 2 puff QID PRN Administration shortness of breath or wheezing Albuterol 2.5 mg 07/09/23 14:00 07/15/23 09:43 Albuterol Sulfate Neb 2.5 Mg/3 Ml Inh INHALATION 2.5 mg Q6HRT KATERINA Administration Alprazolam 0.5 mg 07/10/23 12:26 07/15/23 03:23 Alprazolam (*Crx) 0.5 Mg Tablet PO 0.5 mg Q6HR PRN Administration Anxiety Aspirin 81 mg 07/09/23 09:00 07/15/23 10:13 Aspirin 81 Mg Enteric Tablet PO 81 mg QAM KATERINA Administration Cyanocobalamin 1,000 mcg 07/08/23 09:00 07/15/23 10:01 Cyanocobalamin 1,000 Mcg Tablet PO Not Given QAM KATERINA Diltiazem HCl 240 mg 07/08/23 09:00 07/15/23 10:13 Diltiazem Hcl Cd 240 Mg Cap.24hr PO 240 mg DAILY KATERINA Administration Doxycycline Hyclate 100 mg 07/09/23 21:00 07/15/23 05:45
--- NOTE | 2023-07-15 11:26 | P.PNNP_ITS ---
Progress Note: A&P Assessment and Plan (1) Hyponatremia: Code(s): E87.1 - Hypo-osmolality and hyponatremia Status: Acute Assessment and Plan: * improvement noted * suspect due to volume depletion * however, possible pneumonia maybe playing a role * on salt tablet therapy -- would wean off as tolerated * evaluation to date noted: * TSH and cortisol okay * urine electrolytes non-prerenal * SPEP/UPEP pending * follow repeat sodium levels (2) Hypokalemia: Code(s): E87.6 - Hypokalemia Status: Acute Assessment and Plan: * probably related to volume depletion as well * however, outpatient diuretic use could be partly to blame as well * replete/replace as needed * ensure magnesium is adequate * given his history of DM, cannot discount a type 4 RTA (hypoaldo state) * renin and aldosterone pending * follow repeat potassium levels (3) Hypertension: Code(s): I10 - Essential (primary) hypertension Status: Chronic Assessment and Plan: * stable if not on the soft side * BP medications with parameters * follow trend of hemodynamics (4) Diabetes: Code(s): E11.9 - Type 2 diabetes mellitus without complications Status: Chronic Assessment and Plan: * follow accu-cheks * glycemic control per hospitalists Not much else to add from renal perspective -- will continue to follow from a distance. Subjective Date/time seen: 07/15/23 11:26 Interval history: Follow-up for acute hyponatremia and hypokalemia. Electroytes seems to be improving/stabilizing; no apparent distress noted at the time of my visit; tolerating IVFs in the last 24 hours; no other issues/events overnight or earlier this AM. Exam Narrative: General: elderly but WD/WN female in NAD Heart: normal S1 and S2; no rub Lungs: coarse at bases Abdomen: soft, nontender, nondistended, positive bowel sounds Extremities: no cyanosis or clubbing; no edema Skin: warm and intact Objective Data Vital Signs Vital Signs: Vital Signs Temp Pulse Resp BP Pulse Ox O2 Del Method 07/15/23 09:55 79 20 07/15/23 09:43 81 20 07/15/23 04:30 97.2 F L 84 18 114/64 92 07/15/23 02:16 78 21 H 07/14/23 20:00 Room Air 07/14/23 21:26 85 22 H 07/14/23 20:57 97.5 F L 85 16 104/64 94 07/14/23 15:50 73 22 H 07/14/23 15:34 86 22 H 07/14/23 14:31 98.1 F 100 18 121/74 94 Intake/Output Intake/Output: Intake & Output 07/12/23 07/13/23 07/14/23 07/15/23 23:59 23:59 23:59 23:59 Intake Total 1874 1560 1080 300 Output Total 300 600 Balance 9063 214 7247 300 Meds/Results Medications: Active Medications Generic Name Dose Route Start Last Admin Trade Name Freq PRN Reason Stop Dose Admin Acetaminophen 650 mg 07/08/23 07:05 07/15/23 03:23 Acetaminophen 325 Mg Tablet PO 650 mg Q4H PRN Administration Mild Pain (1-3) Or Fever Al Hydrox/Mg Hydrox/Simethicone 30 ml 07/07/23 23:56 Mag Hydrox/Al Hydrox/Simeth 30 Ml Udc PO QID PRN Dyspepsia Albuterol 2 puff 07/08/23 07:05
[2023-07-15 11:32] LABS: Glucose Point of Care 102 mg/dl (65-105)
[2023-07-15] MEDS: SODIUM CHLORIDE 500 MG TABLET 1000 MG PO ×2 (12:38→17:06)
[2023-07-15] MEDS: DEXTROSE 5%/0.9% SOD CHL 1,000 ML 50 ML IV CONT (14:07)
--- NOTE | 2023-07-15 15:05 | P.PNIM_ITS ---
Progress Note: A&P Assessment and Plan (1) Hypertension associated with type 2 diabetes mellitus: Code(s): E11.59 - Type 2 diabetes mellitus with other circulatory complications; I15.2 - Hypertension secondary to endocrine disorders Status: Chronic Assessment and Plan: * BP reviewed and stable (2) Hyperlipidemia associated with type 2 diabetes mellitus: Code(s): E11.69 - Type 2 diabetes mellitus with other specified complication; E78.5 - Hyperlipidemia, unspecified Status: Chronic Assessment and Plan: * Continue home statin (3) Contraindication to anticoagulation therapy: Code(s): Z53.09 - Procedure and treatment not carried out because of other contraindication Status: Chronic (4) Persistent atrial fibrillation: Code(s): I48.19 - Other persistent atrial fibrillation Status: Chronic Assessment and Plan: * Continue diltiazem (5) CHF (congestive heart failure): Qualifiers: Heart failure chronicity: acute on chronic Heart failure type: diastolic Qualified Code(s): I50.33 - Acute on chronic diastolic (congestive) heart failure Code(s): I50.9 - Heart failure, unspecified Status: Chronic Assessment and Plan: * EKG with atrial fibrillation left axis deviation intraventricular conduction delay with no acute ST-T changes. * Also has history of chronic atrial fibrillation. * not a candidate of for anticoagulation due to history of frequent falls and history of catastrophic GI bleed in the past. * currently on aspirin * cardiology consulted - continue current regimen; may evaluate outpatient for candidacy for left atrial appendage closure (6) Recurrent falls: Code(s): R29.6 - Repeated falls Status: Acute Assessment and Plan: * SNF * pt/ot (7) Hypertension: Code(s): I10 - Essential (primary) hypertension Status: Chronic Assessment and Plan: * stable, continue to monitor (8) Pure hypercholesterolemia, unspecified: Code(s): E78.00 - Pure hypercholesterolemia, unspecified Status: Chronic Assessment and Plan: * continue home statin (9) Chronic obstructive pulmonary disease, unspecified: Code(s): J44.9 - Chronic obstructive pulmonary disease, unspecified Status: Chronic Assessment and Plan: * Multifocal pneumonia * Increased interstitial patient infiltrate bilateral lower base * d/c doxycycline, switch to PO Augmentin * Barium swallow test showed pharyngeal dysphagia with laryngeal penetration with potential for subsequent aspiration * modified diet per speech evaluation * completed course of Flagyl (10) Chronic systolic (congestive) heart failure: Code(s): I50.22 - Chronic systolic (congestive) heart failure Status: Chronic Assessment and Plan: ECHO showed: * Left ventricular systolic function is normal, estimated at 55-60%. * ?There is mildly increased left ventricular wall thickness. * ?Right ventricular chamber dimension is mildly enlarged. * ?Right ventricular systolic function is reduced. * ?Left atrial chamber dimension is severely enlarged. * ?Right atrial chamber dimension is mildly enlarged. * ?There is moderate mitral valve regurgitation. * ?There is mild tricuspid valve regurgitation. (11) Type 2 diabetes mellitus with diabetic polyneuropathy: Code(s): E11.42 - Type 2 diabetes mellitus with diabetic polyneuropathy Status: Chronic Assessment and Plan: * holding glipizide * PRN hypoglycemic protocol * yony D
--- NOTE | 2023-07-15 15:05 | PM.IMPN ---
Progress Note: A&P Assessment and Plan (1) Hypertension associated with type 2 diabetes mellitus: Code(s): E11.59 - Type 2 diabetes mellitus with other circulatory complications; I15.2 - Hypertension secondary to endocrine disorders Status: Chronic Assessment and Plan: BP reviewed and stable (2) Hyperlipidemia associated with type 2 diabetes mellitus: Code(s): E11.69 - Type 2 diabetes mellitus with other specified complication; E78.5 - Hyperlipidemia, unspecified Status: Chronic Assessment and Plan: Continue home statin (3) Contraindication to anticoagulation therapy: Code(s): Z53.09 - Procedure and treatment not carried out because of other contraindication Status: Chronic (4) Persistent atrial fibrillation: Code(s): I48.19 - Other persistent atrial fibrillation Status: Chronic Assessment and Plan: Continue diltiazem (5) CHF (congestive heart failure): Qualifiers: Heart failure chronicity: acute on chronic Heart failure type: diastolic Qualified Code(s): I50.33 - Acute on chronic diastolic (congestive) heart failure Code(s): I50.9 - Heart failure, unspecified Status: Chronic Assessment and Plan: EKG with atrial fibrillation left axis deviation intraventricular conduction delay with no acute ST-T changes. Also has history of chronic atrial fibrillation. not a candidate of for anticoagulation due to history of frequent falls and history of catastrophic GI bleed in the past. currently on aspirin cardiology consulted - continue current regimen; may evaluate outpatient for candidacy for left atrial appendage closure (6) Recurrent falls: Code(s): R29.6 - Repeated falls Status: Acute Assessment and Plan: SNF pt/ot (7) Hypertension: Code(s): I10 - Essential (primary) hypertension Status: Chronic Assessment and Plan: stable, continue to monitor (8) Pure hypercholesterolemia, unspecified: Code(s): E78.00 - Pure hypercholesterolemia, unspecified Status: Chronic Assessment and Plan: continue home statin (9) Chronic obstructive pulmonary disease, unspecified: Code(s): J44.9 - Chronic obstructive pulmonary disease, unspecified Status: Chronic Assessment and Plan: Multifocal pneumonia Increased interstitial patient infiltrate bilateral lower base d/c doxycycline, switch to PO Augmentin Barium swallow test showed pharyngeal dysphagia with laryngeal penetration with potential for subsequent aspiration modified diet per speech evaluation completed course of Flagyl (10) Chronic systolic (congestive) heart failure: Code(s): I50.22 - Chronic systolic (congestive) heart failure Status: Chronic Assessment and Plan: ECHO .08/31 showed: Left ventricular systolic function is normal, estimated at 55-60%. ?There is mildly increased left ventricular wall thickness. ?Right ventricular chamber dimension is mildly enlarged. ?Right ventricular systolic function is reduced. ?Left atrial chamber dimension is severely enlarged. ?Right atrial chamber dimension is mildly enlarged. ?There is moderate mitral valve regurgitation. ?There is mild tricuspid valve regurgitation. (11) Type 2 diabetes mellitus with diabetic polyneuropathy: Code(s): E11.42 - Type 2 diabetes mellitus with diabetic polyneuropathy Status: Chronic Assessment and Plan: holding glipizide PRN hypoglycemic protocol gentle D5W as she is fragile (12) Electrolyte abnormality: Code(s): E87.8 - Other disorders of electrolyte and fluid balance, not elsewhere classified Status: Acute Assessment and Plan: SABIHA, hyponatremia, hypokalemia SABIHA with creatinine of 1.9 on admission, now 0.8 potassium chloride PO 40 BID sodium chloride 1 g t.i.d. Consult ecologist technician for evaluation treatment (13) UTI (urinary tract i
[2023-07-15 16:24] LABS: Glucose Point of Care 123 mg/dl (65-105)
[2023-07-15] MEDS: POTASSIUM CHLORIDE 20 MEQ PACKET (FOR LIQUID) 40 MEQ PO (17:04)
[2023-07-15] MEDS: FERROUS SULFATE 325 MG TABLET DR PO (17:06)
[2023-07-15] MEDS: rOPINIRole HCL 1 MG TABLET PO (17:06)
[2023-07-15] MEDS: LINEZOLID 600 MG TABLET PO (20:28)
[2023-07-15] MEDS: AMOXICILLIN/CLAVULANATE K 875-125 MG TAB 1 TABLET PO (20:28)
[2023-07-15 21:03] LABS: Osmolality, Urine 235 mOsm/kg (50-1200)
[2023-07-15 23:42] LABS: Kappa\\Lambda Light Chains 1.97 (0.26-1.65); Lambda Light Chain 52.3 mg/L (5.7-26.3)
[2023-07-16] VITALS (8 sets, daily range): BP systolic 96–112; BP diastolic 51; PULSE 77–96; RESP 18–20; TEMP 35.9–36.1; O2SAT 93–97
[2023-07-16] MEDS: IPRATROPIUM BR 0.02% INH SOLN 0.5 MG/2.5 ML VIAL INHALATION ×3 (01:30→14:55)
[2023-07-16] MEDS: ALBUTEROL SULFATE NEB 2.5 MG/3 ML INH INHALATION ×3 (01:30→14:55)
[2023-07-16 03:00] LABS: Glucose Point of Care 130 mg/dl (65-105)
[2023-07-16] MEDS: DEXTROSE 5%/0.9% SOD CHL 1,000 ML 50 ML IV CONT (05:32)
[2023-07-16] MEDS: SALINE LOCK FLUSH 10 ML IV PUSH (05:33)
[2023-07-16 05:41] LABS: Hematocrit 31.6 % (37.0-47.0); Hemoglobin 9.7 g/dL (12.0-15.0); Mean Corpuscular HGB Conc 30.7 g/dl (32-36); Mean Corpuscular Hemoglobin 27.9 pg (26-34); Mean Corpuscular Volume 90.8 fl (80-100); Platelet Count Result 120 k/mm3 (150-375); Red Blood Count 3.48 M/mm3 (4.2-5.4); Red Cell Distribution Width 16.4 % (11.5-14.5); White Blood Count 4.7 K/mm3 (4.5-10.0)
[2023-07-16 05:50] LABS: Alanine Aminotransferase 18 U/L (6-35); Alkaline Phosphatase 50 U/L (38-126); Anion Gap 8 mmol/L (8-16); Aspartate Amino Transferase 30 U/L (14-36); Bilirubin,Total 0.6 mg/dL (0.2-1.3); Blood Urea Nitrogen 5 mg/dL (7-17); Calcium 8.3 mg/dL (8.4-10.2); Carbon Dioxide 26 mmol/L (22-30); Chloride 103 mmol/L (98-107); Estimated CRCL calculation 57 ml/min; Estimated Glomerular Filt Rate > 60; Glucose 117 mg/dL (65-110); Magnesium 1.5 mg/dL (1.6-2.3); Phosphorus 2.7 mg/dL (2.5-4.5); Sodium 137 mmol/L (137-145)
[2023-07-16 07:34] LABS: Glucose Point of Care 107 mg/dl (65-105)
[2023-07-16] MEDS: POTASSIUM CHLORIDE 20 MEQ PACKET (FOR LIQUID) 40 MEQ PO (08:21)
[2023-07-16] MEDS: FERROUS SULFATE 325 MG TABLET DR PO (08:22)
[2023-07-16] MEDS: SODIUM CHLORIDE 500 MG TABLET PO (08:22)
[2023-07-16] MEDS: FLUoxetine HCL 10 MG CAPSULE PO (08:22)
[2023-07-16] MEDS: LINEZOLID 600 MG TABLET PO ×2 (08:22→20:23)
[2023-07-16] MEDS: dilTIAZem HCL CD 240 MG CAP.24HR PO (08:22)
[2023-07-16] MEDS: AMOXICILLIN/CLAVULANATE K 875-125 MG TAB 1 TABLET PO ×2 (08:22→20:23)
[2023-07-16] MEDS: rOPINIRole HCL 1 MG TABLET PO (08:22)
[2023-07-16] MEDS: PRAVASTATIN SODIUM 20 MG TABLET 40 MG PO (08:22)
[2023-07-16] MEDS: ASPIRIN 81 MG ENTERIC TABLET PO (08:22)
[2023-07-16] MEDS: CYANOCOBALAMIN 1,000 MCG TABLET 1000 MCG PO (08:22)
[2023-07-16] MEDS: ERGOCALCIFEROL 50,000 UNITS CAPSULE 50000 UNITS PO (08:26)
[2023-07-16 10:47] LABS: Albumin 3.1 g/dL (3.8-4.8); Alpha 1 Globulin 0.4 g/dL (0.2-0.3); Alpha 2 Globulin 0.9 g/dL (0.5-0.9); Beta 1 Globulin 0.4 g/dL (0.4-0.6); Gamma Globulin 1.2 g/dL (0.8-1.7); Protein, Total 6.3 g/dL (6.1-8.1)
--- NOTE | 2023-07-16 11:13 | PCNFU ---
Nutrition Follow-Up Complete: Inadequate oral intake related to loss of appetite as evidenced by intakes0-50% Goal:Improve PO intake to consistently at least 50% meals and supplements Pt is meeting goal, continue with same goal Pt current nutrition is Heart healthy. Nutrition recommendation: Continue with current plan of care Last recorded weight is 92.4 kg. Bowel Motility: +BM 07/15 Labs Reviewed: Hgb:9.7, HCT:31.6, Alb:3.0, BUN:5, Glu:107 Meds Noted: novolog, KCL Skin: WNL Additional Notes: Pt continues on a heart healthy diet, intake 50-75% of meals at this time. Noted mildly thick liquids. Continue to encourage good po intake of meals. Monitor intakes, weights, labs, supplement intake, plan of care Follow up in 7 days
[2023-07-16 11:26] LABS: Glucose Point of Care 90 mg/dl (65-105)
--- NOTE | 2023-07-16 13:11 | P.DS_ITS ---
DS: Admitting Diagnosis Discharge Date 07/16/23 Admitting Diagnosis chest pain DS: Discharge Diagnosis Discharge Diagnosis (1) Hypertension associated with type 2 diabetes mellitus: Code(s): E11.59 - Type 2 diabetes mellitus with other circulatory complications; I15.2 - Hypertension secondary to endocrine disorders Status: Chronic Assessment and Plan: * BP reviewed and stable (2) Hyperlipidemia associated with type 2 diabetes mellitus: Code(s): E11.69 - Type 2 diabetes mellitus with other specified complication; E78.5 - Hyperlipidemia, unspecified Status: Chronic Assessment and Plan: * Continue home statin (3) Persistent atrial fibrillation: Code(s): I48.19 - Other persistent atrial fibrillation Status: Chronic Assessment and Plan: * Continue diltiazem (4) CHF (congestive heart failure): Qualifiers: Heart failure chronicity: acute on chronic Heart failure type: diastolic Qualified Code(s): I50.33 - Acute on chronic diastolic (congestive) heart failure Code(s): I50.9 - Heart failure, unspecified Status: Chronic Assessment and Plan: * EKG with atrial fibrillation left axis deviation intraventricular conduction delay with no acute ST-T changes. * Also has history of chronic atrial fibrillation. * not a candidate of for anticoagulation due to history of frequent falls and history of catastrophic GI bleed in the past. * currently on aspirin * cardiology consulted - continue current regimen; may evaluate outpatient for candidacy for left atrial appendage closure (5) Recurrent falls: Code(s): R29.6 - Repeated falls Status: Acute Assessment and Plan: * SNF * pt/ot (6) Hypertension: Code(s): I10 - Essential (primary) hypertension Status: Chronic Assessment and Plan: * stable, continue to monitor (7) Pure hypercholesterolemia, unspecified: Code(s): E78.00 - Pure hypercholesterolemia, unspecified Status: Chronic Assessment and Plan: * continue home statin (8) Chronic obstructive pulmonary disease, unspecified: Code(s): J44.9 - Chronic obstructive pulmonary disease, unspecified Status: Chronic Assessment and Plan: * Multifocal pneumonia * Increased interstitial patient infiltrate bilateral lower base * d/c doxycycline, switch to PO Augmentin * Barium swallow test showed pharyngeal dysphagia with laryngeal penetration with potential for subsequent aspiration * modified diet per speech evaluation * completed course of Flagyl (9) Chronic systolic (congestive) heart failure: Code(s): I50.22 - Chronic systolic (congestive) heart failure Status: Chronic Assessment and Plan: ECHO .08/31 showed: * Left ventricular systolic function is normal, estimated at 55-60%. * ?There is mildly increased left ventricular wall thickness. * ?Right ventricular chamber dimension is mildly enlarged. * ?Right ventricular systolic function is reduced. * ?Left atrial chamber dimension is severely enlarged. * ?Right atrial chamber dimension is mildly enlarged. * ?There is moderate mitral valve regurgitation. * ?There is mild tricuspid valve regurgitation. (10) Type 2 diabetes mellitus with diabetic polyneuropathy: Code(s): E11.42 - Type 2 diabetes mellitus with diabetic polyneuropathy Status: Chronic Assessment and Plan: * resume glipizide * closely monitor BP as her PO intake has been poor (11) Electrolyte abnormality: Code(s): E87.8 - Other
--- NOTE | 2023-07-16 13:11 | PM.DS ---
DS: Admitting Diagnosis Discharge Date 07/16/23 Admitting Diagnosis chest pain DS: Discharge Diagnosis Discharge Diagnosis (1) Hypertension associated with type 2 diabetes mellitus: Code(s): E11.59 - Type 2 diabetes mellitus with other circulatory complications; I15.2 - Hypertension secondary to endocrine disorders Status: Chronic Assessment and Plan: BP reviewed and stable (2) Hyperlipidemia associated with type 2 diabetes mellitus: Code(s): E11.69 - Type 2 diabetes mellitus with other specified complication; E78.5 - Hyperlipidemia, unspecified Status: Chronic Assessment and Plan: Continue home statin (3) Persistent atrial fibrillation: Code(s): I48.19 - Other persistent atrial fibrillation Status: Chronic Assessment and Plan: Continue diltiazem (4) CHF (congestive heart failure): Qualifiers: Heart failure chronicity: acute on chronic Heart failure type: diastolic Qualified Code(s): I50.33 - Acute on chronic diastolic (congestive) heart failure Code(s): I50.9 - Heart failure, unspecified Status: Chronic Assessment and Plan: EKG with atrial fibrillation left axis deviation intraventricular conduction delay with no acute ST-T changes. Also has history of chronic atrial fibrillation. not a candidate of for anticoagulation due to history of frequent falls and history of catastrophic GI bleed in the past. currently on aspirin cardiology consulted - continue current regimen; may evaluate outpatient for candidacy for left atrial appendage closure (5) Recurrent falls: Code(s): R29.6 - Repeated falls Status: Acute Assessment and Plan: SNF pt/ot (6) Hypertension: Code(s): I10 - Essential (primary) hypertension Status: Chronic Assessment and Plan: stable, continue to monitor (7) Pure hypercholesterolemia, unspecified: Code(s): E78.00 - Pure hypercholesterolemia, unspecified Status: Chronic Assessment and Plan: continue home statin (8) Chronic obstructive pulmonary disease, unspecified: Code(s): J44.9 - Chronic obstructive pulmonary disease, unspecified Status: Chronic Assessment and Plan: Multifocal pneumonia Increased interstitial patient infiltrate bilateral lower base d/c doxycycline, switch to PO Augmentin Barium swallow test showed pharyngeal dysphagia with laryngeal penetration with potential for subsequent aspiration modified diet per speech evaluation completed course of Flagyl (9) Chronic systolic (congestive) heart failure: Code(s): I50.22 - Chronic systolic (congestive) heart failure Status: Chronic Assessment and Plan: ECHO showed: Left ventricular systolic function is normal, estimated at 55-60%. ?There is mildly increased left ventricular wall thickness. ?Right ventricular chamber dimension is mildly enlarged. ?Right ventricular systolic function is reduced. ?Left atrial chamber dimension is severely enlarged. ?Right atrial chamber dimension is mildly enlarged. ?There is moderate mitral valve regurgitation. ?There is mild tricuspid valve regurgitation. (10) Type 2 diabetes mellitus with diabetic polyneuropathy: Code(s): E11.42 - Type 2 diabetes mellitus with diabetic polyneuropathy Status: Chronic Assessment and Plan: resume glipizide closely monitor BP as her PO intake has been poor (11) Electrolyte abnormality: Code(s): E87.8 - Other disorders of electrolyte and fluid balance, not elsewhere classified Status: Resolved Assessment and Plan: cleared with nephrology for d/c repeat BMP in 1 week (12) UTI (urinary tract infection): Code(s): N39.0 - Urinary tract infection, site not specified Status: Acute Assessment and Plan: Urine culture positive for Vanco Res Enterococcus faecium continue linezolid PO per sensitivi
[2023-07-16 14:14] LABS: SARS-CoV-2 RNA PCR Negative (Negative)
[2023-07-16 16:24] LABS: Glucose Point of Care 90 mg/dl (65-105)
[2023-07-16 21:15] LABS: Glucose Point of Care 96 mg/dl (65-105)
[2023-07-17 12:36] LABS: Creatinine, Random Urine 15 mg/dL (20-275); Total Protein/Creatinine Ratio 600 mg/g creat (24-184)
[2023-07-17 16:22] LABS: PRA 0.77 ng/mL/h (0.25-5.82)
== END 2023-07-16 20:42 | DRG 640 ==
LOC: ANHED 23:57 → ANHIMU 07-08 00:15 → ANH3MEDSUR 07-12 00:09
PROVIDERS: Emergency Medicine; Hospitalist; Internal Medicine; Internal Medicine Nephrology; Student in an Organized Health Care Education/Training Program; Admitting Provider Family Medicine; Emergency Provider Emergency Medicine; PCP Family Medicine Adolescent Medicine; Visit Provider Nurse Practitioner
DX: E87.6 Hypokalemia (principal); I50.33 Acute on chronic diastolic (congestive) heart failure; J18.9 Pneumonia, unspecified organism; I48.19 Other persistent atrial fibrillation; J44.0 Chronic obstructive pulmonary disease with (acute) lower respiratory infection; F33.0 Major depressive disorder, recurrent, mild; K92.2 Gastrointestinal hemorrhage, unspecified; N39.0 Urinary tract infection, site not specified; Z16.21 Resistance to vancomycin; N17.9 Acute kidney failure, unspecified; I11.0 Hypertensive heart disease with heart failure; E87.1 Hypo-osmolality and hyponatremia; R07.89 Other chest pain; B95.2 Enterococcus as the cause of diseases classified elsewhere; E11.69 Type 2 diabetes mellitus with other specified complication; E78.5 Hyperlipidemia, unspecified; I15.2 Hypertension secondary to endocrine disorders; R29.6 Repeated falls; E78.00 Pure hypercholesterolemia, unspecified; R13.13 Dysphagia, pharyngeal phase; I25.10 Atherosclerotic heart disease of native coronary artery without angina pectoris; F41.1 Generalized anxiety disorder; I65.29 Occlusion and stenosis of unspecified carotid artery; W06.XXXA Fall from bed, initial encounter; E86.0 Dehydration; F17.210 Nicotine dependence, cigarettes, uncomplicated; E11.59 Type 2 diabetes mellitus with other circulatory complications; G25.81 Restless legs syndrome; E11.42 Type 2 diabetes mellitus with diabetic polyneuropathy; N32.81 Overactive bladder; Z20.822 Contact with and (suspected) exposure to COVID-19; E66.9 Obesity, unspecified; Z53.09 Procedure and treatment not carried out because of other contraindication; Z96.643 Presence of artificial hip joint, bilateral; Z68.32 Body mass index [BMI] 32.0-32.9, adult; Z90.710 Acquired absence of both cervix and uterus; I25.2 Old myocardial infarction; Z99.3 Dependence on wheelchair
CPT/HCPCS: 36415; 36569; 71045; 71046; 80048; 80053; 81001; 81050; 82088; 82274; 82533; 82550; 82570; 82948; 83690; 83735; 83883; 83930; 83935; 84100; 84132; 84155; 84156; 84165; 84166; 84244; 84300; 84443; 84484; 84540; 85014; 85018; 85025; 85027; 85055; 85610; 85730; 85999; 87086; 87147; 87181; 87186; 87493; 87635; 87637; 92526; 92610; 92611; 93005; 93306; 94640; 94762; 96361; 96365; 96366; 99285; A9270; C1751; C9113; G0378; J0696; J1940; J2020; J3475; J3480; J7030; J7040; J7042; J7070; J7120